=== PATIENT | male | born 1965 | race African-American/Black ===

== ENCOUNTER 2021-04-27 19:37 | Inpatient (IN) | payer OTHER ==
--- OUTSIDE RECORDS SUMMARY | 2021-04-27 19:40 | XMS REPORT | Continuity of Care Document ---
:1965 Author Organization [facility] Address [address] [place] [address] Dr. Rosa [address] [place] [id number] Care Team Providers Name Role Phone Unavailable Unavailable Unavailable Problems This patient has no known problems. Allergies, Adverse Reactions, Alerts This patient has no known allergies or adverse reactions. Medications This patient has no known medications. Procedures This patient has no known procedures. Results This patient has no known results.
--- NOTE | 2021-04-27 20:10 | RAD REPORT ---
EXAM DESCRIPTION: RAD - Chest Single View - 04/27/2021 8:01 pm CLINICAL HISTORY: CHEST PAIN COMPARISON: None TECHNIQUE: AP portable chest image was obtained 04/27/2021 8:01 pm . FINDINGS: Lungs are clear. Heart and vasculature are normal. No measurable pleural effusion and no p neumothorax. No acute bony abnormality seen. No acute aortic findings suspected. IMPRESSION: No acute cardiopulmonary process.
[2021-04-27 20:31] LABS: Protime INR 1.07
[2021-04-27] MEDS ORDERED: MORPHINE 4 MG/ML SYR ONE (20:40)
[2021-04-27] MEDS ORDERED: ONDANSETRON 4 MG/2 ML VIAL ONE (20:40)
[2021-04-27 20:41] LABS: Absolute Lymphocytes (CBC) 1.3 K/uL (0.7-4.9); Basophils % 0.6 % (0-1.3); Lymphocytes % 14.2 % (15.3-44.8); MPV 9.2 fL (7.6-11.3); RBC Red Blood Cell Count 5.04 M/uL (4.33-5.43)
[2021-04-27 20:57] LABS: Albumin 3.1 g/dL (3.4-5.0); Bilirubin Direct 0.1 mg/dL (0-0.2); Bilirubin Total 0.3 mg/dL (0.2-1.0); Magnesium 1.8 mg/dL (1.8-2.4); Potassium 3.7 mmol/L (3.5-5.1); Protein, Total 7.6 g/dL (6.4-8.2)
[2021-04-27 20:59] LABS: Troponin (Emerg Dept Use Only) 0.78 ng/mL (0.0-0.045)
[2021-04-27 21:24] LABS: Platelet Estimate ADEQ
[2021-04-27 21:25] LABS: Blood Morphology Comment NOT SEEN (NOT SEEN)
[2021-04-27] MEDS ORDERED: ACETAMINOPHEN 500 MG TAB ONE (23:21)
[2021-04-28 00:59] LABS: Absolute Lymphocytes (CBC) 1.3 K/uL (0.7-4.9); Basophils % 0.7 % (0-1.3); Hematocrit 41.6 % (39.6-49.0); Lymphocytes % 18.1 % (15.3-44.8); MPV 9.5 fL (7.6-11.3); RBC Red Blood Cell Count 4.66 M/uL (4.33-5.43)
--- NOTE | 2021-04-28 01:22 | ER ---
Nurse's Notes [facility] Name: Kyle Gomez Age: 55 yrs Sex: Male : 1965 Arrival Date: 04/27/2021 Time: 19:44 Bed 19 Private MD: Diagnosis: Subsequent non-ST elevation (NSTEMI) myocardial infarction Presentation: 04/27 19:46 Chief complaint: EMS states: called out for nose bleed that started today, also reports em chest pain that started 2 days ago, has hx of cocaine and alcohol abuse, also reports bloody BM last night, last used cocaine this morning, was given 1 nitro 0.4 mg and 800 mL NS. Coronavirus screen: Vaccine status: Patient reports receiving the 1st dose of the Covid vaccine. Ebola Screen: Patient negative for fever greater than or equal to 101.5 degrees Fahrenheit, and additional compatible Ebola Virus Disease symptoms Patient denies exposure to infectious person. Patient denies travel to an Ebola-affected area in the 21 days before illness onset. No symptoms or risks identified at this time. Initial Sepsis Screen: Does the patient meet any 2 criteria? No. Patient's initial sepsis screen is negative. Does the patient have a suspected source of infection? No. Patient's initial sepsis screen is negative. Risk Assessment: Do you want to hurt yourself or someone else? Patient reports no desire to harm self or others. Onset of symptoms was April 27, 2021. 19:46 Method Of Arrival: EMS: [facility] em 19:46 Acuity: NISHANT 3 em Historical: - Allergies: 19:48 No Known Allergies; em - PMHx: 19:48 Hypertensive disorder; coronary disease; em - PSHx: 19:48 cardiac stents; em - Immunization history:: Client reports receiving the Josesito \T\ Josesito single-dose vaccine. - Social history:: Smoking status: Patient reports the use of cigarette tobacco products, smokes one pack cigarettes per day. Screenin:46 Abuse screen: Denies threats or abuse. Nutritional screening: No deficits noted. em Tuberculosis screening: No symptoms or risk factors identified. Fall Risk None identified. Assessment: 20:53 General: Appears uncomfortable, Behavior is calm, cooperative, restless, Smells of em Reports feeling ill for 2-3 days, Denies . Pain: Complains of pain in chest Pain does not radiate. Pain currently is 10 out of 10 on a pain scale. Quality of pain is described as sharp, Pain began 2-3 days ago. Is chronic, Alleviated by nothing. Aggravated by increased activity, Noted to be restless, Also complains of shortness of breath, Current management is with Morphine, Goal of pain control is to sleep comfortably. Neuro: No deficits noted. Cardiovascular: Chest pain. Respiratory: No deficits noted. GI: No deficits noted. : No deficits noted. EENT: No deficits noted. Derm: Reports pain Pt states redness, dry skin noted to right ankle. Skin warm to touch with pain x 2-3 days. Musculoskeletal: Reports Pt states right ankle pain x 2-3 days. No trauma or injury noted. MSP's intact. 22:11 Reassessment: Patient appears in no apparent distress at this time. Patient and/or em family updated on plan of care and expected duration. Pain level reassessed. Patient is alert, oriented x 3, equal unlabored respirations, skin warm/dry/pink. rates pain 5/10 Patient states feeling better. 04/28 01:00 Reassessment: Patient appears in no apparent distress at this time. Patient and/or em family updated on plan of care and expected duration. Pain level reassessed. Patient is alert, oriented x 3, equal unlabored respirations, skin warm/dry/pink. Vital Signs: 04/27 19:46 BP 127 / 87; Pulse 111; Resp 18; Temp 101(O); Pulse Ox 95% on R/A; Weight 72.57 kg; em Height 5 ft. 11 in. (180.34 cm); 04/28 00:27 BP 136 / 87; Pulse 88; Resp 18; Temp 99.0; Pulse Ox 98% on R/A; em 05:33 BP 142 / 99; Pulse 78; Resp 18; Pulse Ox 98% on R/A; em 04/27 19:46 Body Mass Index 22.32 (72.57 kg, 180.34 cm) em ED Course: 04/27 19:44 Patient arrived in ED. cf2 19:44 Isai Farris MD is Attending Physician. tw4 19:46 Patient has correct armband on for positive identification. Placed in gown. Side rails em up X2. Adult w/ patient. bus monitor on. Pulse ox on. NIBP on. 19:46 Patient maintains SpO2 saturation greater than 95% on room air. em 19:46 Maintain EMS IV. Dressing intact. Good blood return noted. Site clean \T\ dry. Gauge \T\ em site: 20 L FA. 19:48 Triage completed. em 19:48 Arm band placed on. em 20:01 XRAY Chest (1 view) In Process Unspecified. EDMS 20:06 Sabas Hunt, RN is Primary Nurse. em 22:14 Initiated transfer at [facility] with Alix. Call was connected with Dr. Farris tt3 for consultation. 04/28 01:21 Gerry Rubio is Hospitalizing Provider. tw4 02:52 No provider procedures requiring assistance completed. Patient admitted, IV remains in em place. Administered Medications: 04/27 20:22 Drug: Zofran (Ondansetron) 4 mg Route: IVP; Site: left forearm; em 20:47 Follow up: Response: No adverse reaction em 20:24 Drug: morphine 4 mg Route: IVP; Site: left forearm; em 20:47 Follow up: Response: No adverse reaction; Marked relief of symptoms; Pain is unchanged, em physician notified 22:30 Drug: Tylenol 1000 mg Route: PO; em 04/28 02:47 Follow up: Response: No adverse reaction em 02:20 Drug: Heparin ([place] Drip) 12 units/kg/hr - (HEParin 08185 units, D5W 500 ml) em {Co-Signature: lh3 (Carlie Kruse RN).} Route: IV; Rate: calculated rate; Site: right forearm; 02:23 Not Given (Physician Discretion): Heparin ([place]-Bolus No thrombolytic) - HEParin 60 em units/kg IVP once; Max 5000 units Outcome: 01:21 Decision to Hospitalize by Provider. tw4 02:52 Admitted to ER Hold. Please see [facility] for further documentation. em 02:52 Condition: stable 02:52 Instructed on the need for admit, Demonstrated understanding of instructions. 09:20 Patient left the ED. ll1 Signatures: Dispatcher [employer] EDCO Sabas Hunt, RN RN Isai Farris MD MD tw4 Kiki Varela 2 Jamie Pritchett RN RN ll1 Fly James tt3 Carlie Kruse RN lh3
--- NOTE | 2021-04-28 01:22 | EDPHYS ---
Physician Documentation [facility] Name: Kyle Gomez Age: 55 yrs Sex: Male : 1965 Arrival Date: 04/27/2021 Time: 19:44 Bed 19 Private MD: ED Physician Isai Farris HPI: 04/28 06:28 This 55 yrs old Black Male presents to ER via EMS with complaints of Chest Pain, Nose tw4 Bleed. 06:28 The patient or guardian reports chest pain that is located primarily in the anterior tw4 chest wall. Onset: today. The pain does not radiate. Associated signs and symptoms: The patient has no apparent associated signs or symptoms. Duration: The patient or guardian reports a single episode. Severity of pain: At its worst the pain was moderate. The patient has not experienced similar symptoms in the past. 06:33 Admits to heavy cocaine use over the last 3 days. Patient snorts cocaine. Patient tw4 states he had some epistaxis today. Associated with rectal bleeding. Patient states his epistaxis has resolved. Patient also states that he had rectal bleeding with clots. Patient denies any abdominal pain. Patient had previous history of rectal bleeding for. Historical: - Allergies: 04/27 19:48 No Known Allergies; em - PMHx: 19:48 Hypertensive disorder; coronary disease; em - PSHx: 19:48 cardiac stents; em - Immunization history:: Client reports receiving the Josesito \\T\\ Joses[place] single-dose vaccine. - Social history:: Smoking status: Patient reports the use of cigarette tobacco products, smokes one pack cigarettes per day. ROS: 04/28 06:28 Constitutional: Negative for fever, chills, and weight loss, Eyes: Negative for injury, tw4 pain, redness, and discharge. Respiratory: Negative for shortness of breath, cough, wheezing, and pleuritic chest pain, Abdomen/GI: Negative for abdominal pain, nausea, vomiting, diarrhea, and constipation, Back: Negative for injury and pain, MS/Extremity: Negative for injury and deformity, Skin: Negative for injury, rash, and discoloration, Neuro: Negative for headache, weakness, numbness, tingling, and seizure. Cardiovascular: Positive for chest pain, Negative for edema, orthopnea, palpitations, paroxysmal nocturnal dyspnea. Exam: 06:28 Constitutional: This is a well developed, well nourished patient who is awake, alert, tw4 and in no acute distress. Head/Face: Normocephalic, atraumatic. Chest/axilla: Normal chest wall appearance and motion. Nontender with no deformity. No lesions are appreciated. Cardiovascular: Regular rate and rhythm with a normal S1 and S2. No gallops, murmurs, or rubs. Normal PMI, no JVD. No pulse deficits. Respiratory: Lungs have equal breath sounds bilaterally, clear to auscultation and percussion. No rales, rhonchi or wheezes noted. No increased work of breathing, no retractions or nasal flaring. Abdomen/GI: Soft, non-tender, with normal bowel sounds. No distension or tympany. No guarding or rebound. No evidence of tenderness throughout. Back: No spinal tenderness. No costovertebral tenderness. Full range of motion. Skin: Warm, dry with normal turgor. Normal color with no rashes, no lesions, and no evidence of cellulitis. MS/ Extremity: Pulses equal, no cyanosis. Neurovascular intact. Full, normal range of motion. Neuro: Awake and alert, GCS 15, oriented to person, place, time, and situation. Cranial nerves II-XII grossly intact. Motor strength 5/5 in all extremities. Sensory grossly intact. Cerebellar exam normal. Normal gait. 06:33 Abdomen/GI: Rectal exam: Stool: normal. tw4 Vital Signs: 04/27 19:46 BP 127 / 87; Pulse 111; Resp 18; Temp 101(O); Pulse Ox 95% on R/A; Weight 72.57 kg; em Height 5 ft. 11 in. (180.34 cm); 04/28 00:27 BP 136 / 87; Pulse 88; Resp 18; Temp 99.0; Pulse Ox 98% on R/A; em 05:33 BP 142 / 99; Pulse 78; Resp 18; Pulse Ox 98% on R/A; em 04/27 19:46 Body Mass Index 22.32 (72.57 kg, 180.34 cm) em MDM: 04/27 19:44 Patient medically screened. tw4 04/28 06:32 Differential diagnosis: pulmonary embolus, thoracic aortic disection. Data reviewed: tw4 vital signs, nurses notes. Data interpreted: Pulse oximetry:. Counseling: I had a detailed discussion with the patient and/or guardian regarding: the historical points, exam findings, and any diagnostic results supporting the discharge/admit diagnosis. Physician consultation: Gerry Rubio regarding admission, to the telemetry unit. patient's condition, and will see patient in inpatient room. 04/27 19:45 Order name: Basic Metabolic Panel; Complete Time: 22:02 04/27 22:02 Interpretation: Normal except: GFR 75. 04/27 19:45 Order name: CBC with Diff; Complete Time: 22:02 tw 04/27 22:03 Interpretation: Normal except: LYM% 14.2; LIO% 74.2. 04/27 19:45 Order name: LFT's; Complete Time: 22:02 [facility] 04/27 22:03 Interpretation: Normal except: AST 91; ALB 3.1; GLOB 4.5; A/G 0.7. 04/27 19:45 Order name: Magnesium; Complete Time: 22:02 [facility] 04/27 22:10 Interpretation: Within normal limits: MG 1.8. 04/27 19:45 Order name: NT PRO-BNP; Complete Time: 22:02 [facility] 04/27 22:03 Interpretation: Normal except: NT PRO-BNP 1585. 04/27 19:45 Order name: PT-INR; Complete Time: 22:02 [facility] 04/27 19:45 Order name: Troponin (emerg Dept Use Only); Complete Time: 22:02 [facility] 04/27 22:03 Interpretation: Normal except: TROPED 0.78. 04/27 19:55 Order name: COVID-19 : Document "Date of Symptom Onset" if Symptomatic. 04/27 20:06 Order name: Type And Screen em 04/27 21:24 Order name: Manual Differential; Complete Time: 22:02 EDMS 04/27 22:03 Interpretation: Normal except: BANDS [F] 3. tw04/27 22:18 Order name: SARS-COV-2 RT PCR; Complete Time: 22:36 EDMS 04/27 22:46 Order name: CBC with Diff bb 04/27 19:45 Order name: XRAY Chest (1 view); Complete Time: 22:02 [facility] 04/27 22:47 Order name: CBC with Automated Diff; Complete Time: 01:14 EDID 04/27 23:17 Order name: ABO/RH no charge EDID 04/28 01:58 Order name: Troponin I ej 04/28 02:50 Order name: [place] em 04/28 03:04 Order name: Occult Blood--Ancillary EDID 04/28 03:36 Order name: Urine Drug Screen; Complete Time: 03:49 EDID 04/28 06:46 Order name: Ptt, Activated em 04/28 06:46 Order name: Protime (+inr) em 04/28 07:30 Order name: Troponin I EDID 04/28 07:30 Order name: T4 Free EDID 04/28 07:30 Order name: Thyroid Stimulating Hormone EDID 04/28 07:32 Order name: Protime (+INR) EDID 04/28 07:32 Order name: PTT, Activated Partial Thromb EDID 04/27 19:45 Order name: EKG; Complete Time: 19:45 tw4 04/27 19:45 Order name: Cardiac monitoring; Complete Time: 20:17 tw4 04/27 19:45 Order name: EKG - Nurse/Tech; Complete Time: 20:17 tw4 04/27 19:45 Order name: IV Saline Lock; Complete Time: 20:17 tw4 04/27 19:45 Order name: Labs collected and sent; Complete Time: 20:17 tw4 04/27 19:45 Order name: O2 Per Protocol; Complete Time: 20:17 tw4 04/27 19:45 Order name: O2 Sat Monitoring; Complete Time: 20:17 tw4 04/28 02:20 Order name: CONS Physician Consult EDID EC:28 Rate is 107 beats/min. Rhythm is regular. QRS [place] is Normal. [place] interval is normal. tw4 QRS interval is normal. QT interval is normal. No Q waves. T waves are Inverted in lead V1. No ST changes noted. Clinical impression: Abnormal EKG without significant change. Interpreted by me. Reviewed by me. Administered Medications: 04/27 20:22 Drug: Zofran (Ondansetron) 4 mg Route: IVP; Site: left forearm; em 20:47 Follow up: Response: No adverse reaction em 20:24 Drug: morphine 4 mg Route: IVP; Site: left forearm; em 20:47 Follow up: Response: No adverse reaction; Marked relief of symptoms; Pain is unchanged, em physician notified 22:30 Drug: Tylenol 1000 mg Route: PO; em 04/28 02:47 Follow up: Response: No adverse reaction em 02:20 Drug: Heparin ([place] Drip) 12 units/kg/hr - (HEParin 29280 units, D5W 500 ml) em {Co-Signature: lh3 (Carlie Kruse RN).} Route: IV; Rate: calculated rate; Site: right forearm; 02:23 Not Given (Physician Discretion): Heparin ([place]-Bolus No thrombolytic) - HEParin 60 em units/kg IVP once; Max 5000 units Disposition Summary: 04/28/21 01:21 Hospitalization Ordered Hospitalization Status: Inpatient Admission tw4 Provider: Gerry Rubio tw4 Condition: Stable tw4 Problem: new tw4 Symptoms: have improved tw4 Bed/Room Type: Standard tw4 Location: Telemetry/MedSurg (Inpatient)(04/28/21 08:37) eb Room Assignment: [facility](04/28/21 08:37) Diagnosis - Subsequent non-ST elevation (NSTEMI) myocardial infarction tw4 Forms: - Medication Reconciliation Form tw4 - SBAR form tw4 Signatures: Dispatcher [employer] EDMS Jelly Montilla RN RN Sabas Hunt RN RN Isai Farris MD MD 4 Ema Christopher Carlie Kruse RN lh3 Corrections: (The following items were deleted from the chart) 04/27 21:15 19:56 CORONAVIRUS ordered. EDMS EDMS 23:05 22:29 CBC without Diff+H.LAB.BRZ ordered. EDMS EDMS 04/28 00:42 00:25 Chest Single View+RAD.RAD.BRZ ordered. EDMS EDMS 02:41 01:21 Telemetry/MedSurg (Inpatient) tw4 mw 02:41 01:21 tw4 mw 08:37 02:41 [facility] ER HOLD mw eb 08:37 02:41 ERHOLD- mw eb
[2021-04-28] MEDS ORDERED: HEPARIN/D5W 25,000 UNIT/500 ML BAG IV ONE (02:36)
--- NOTE | 2021-04-28 02:51 | P.HP ---
Certification for Inpatient Patient admitted to: Inpatient With expected LOS: >2 Midnights Patient will require the following post-hospital care: None Practitioner: I am a practitioner with admitting privileges, knowledge of patient current condition, hospital course, and medical plan of care. Services: Services provided to patient in accordance with Admission requirements found in Title 42 Section 412.3 of the Code of Federal Regulations <Edy Bellamy - Last Filed: 04/28/21 02:45> Patient History Date of Service: 04/28/21 Reason for admission: NSTEMI History of Present Illness: Mr. Gomez is a 55 yo M with CAD, HTN, alcohol and cocaine abuse who presents with 10/10 intermittent left sided chest pressure beginning last night while he was laying down. He does not take any medications. Trop 0.78. BNP 1585. He reports using cocaine this morning. Today while he was mowing the lawn, he had an episode of epistaxis so he called EMS. Epistaxis now resolved. He reports episode of rectal bleeding however FOBT negative and H/H wnl. Attempted transfer for GI services, but transfer center denied due to negative FOBT and normal hemoglobin. No bleeding since arrival to the hospital. - Past Medical/Surgical History Diabetic: No -: CAD -: HTN -: cocaine and alcohol abuse -: hip replacement - Social History Smoking Status: Current every day smoker Alcohol use: Yes CD- Drugs: Yes Caffeine use: No Place of Residence: Home <Edy Bellamy - Last Filed: 04/28/21 02:45> Date of Service: 04/28/21 - Social History Smoking Status: Current every day smoker <Gurmeet Cortez - Last Filed: 04/30/21 00:16> Allergies No Known Allergies Allergy (Unverified 04/28/21 03:02) Home Medications: NK [No Home Meds] 04/28/21 Review of Systems 10-point ROS is otherwise unremarkable ENT: Other (epistaxis ) Cardiovascular: Chest Pain <Edy Bellamy - Last Filed: 04/28/21 02:45> Physical Examination - Physical Exam General: Alert, In no apparent distress HEENT: Atraumatic, PERRLA, Mucous membr. moist/pink, EOMI, Sclerae nonicteric Neck: Supple, 2+ carotid pulse no bruit, No LAD, Without JVD or thyroid abnormality Respiratory: Clear to auscultation bilaterally, Normal air movement Cardiovascular: Regular rate/rhythm, Normal S1 S2 Gastrointestinal: Normal bowel sounds, No tenderness Musculoskeletal: No tenderness Integumentary: No rashes Neurological: Normal gait, Normal speech, Normal strength at 5/5 x4 extr, Normal tone, Normal affect Lymphatics: No axilla or inguinal lymphadenopathy - Studies Laboratory Data (last 24 hrs) 04/27/21 : WBC Cancelled, Hgb Cancelled, Hct Cancelled, Plt Count Cancelled 04/27/21 23:40: WBC 6.90 D, Hgb 13.8, Hct 41.6, Plt Count 286 04/27/21 20:05: PT 12.3, INR 1.07 04/27/21 20:05: WBC 8.90, Hgb 14.9, Hct 45.0, Plt Count 263 04/27/21 20:05: Sodium 139, Potassium 3.7, BUN 12, Creatinine 1.21, Glucose 94, Magnesium 1.8, Total Bilirubin 0.3, AST 91 H, ALT 40, Alkaline Phosphatase 88 <Edy Bellamy - Last Filed: 04/28/21 02:45> Assessment and Plan - Problems (Diagnosis) (1) NSTEMI (non-ST elevated myocardial infarction) Current Visit: Yes Status: Acute (2) Cocaine abuse Current Visit: Yes Status: Chronic (3) Alcohol abuse Current Visit: Yes Status: Chronic (4) HTN (hypertension) Current Visit: Yes Status: Chronic Qualifiers: Hypertension type: primary hypertension Qualified Code(s): I10 - Essential (primary) hypertension (5) CAD (coronary artery disease) Current Visit: Yes Status: Chronic Qualifiers: Coronary Disease-Associated Artery/Lesion type: [place] artery [place] vs. transplanted heart: [place] heart Associated angina: with unstable angina Q ualified Code(s): I25.110 - Atherosclerotic heart disease of [place] coronary artery with unstable angina pectoris - Plan on telemetry, trend troponins, repeat EKG cardiology consulted daily ASA and statin, PRN NTG, morphine, benzos continue heparin drip, monitor closely for bleeding UDS pending [facility] protocol lipid and thyroid panel pending Discharge Plan: Home Plan to discharge in: 48 Hours - Advance Directives Does patient have a Living Will: No Does patient have a Durable POA for Healthcare: No - Code Status/Comfort Care Code Status Assessed: Yes (full code ) Critical Care: No Time Spent Managing Pts Care (In Minutes): 70 <Edy Bellamy - Last Filed: 04/28/21 02:45> - Problems (Diagnosis) (1) NSTEMI (non-ST elevated myocardial infarction) Current Visit: Yes Status: Acute (2) Alcohol abuse Current Visit: Yes Status: Chronic (3) CAD (coronary artery disease) Current Visit: Yes Status: Chronic Qualifiers: Coronary Disease-Associated Artery/Lesion type: [place] artery [place] vs. transplanted heart: [place] heart Associated angina: with unstable angina Qualified Code(s): I25.110 - Atherosclerotic heart disease of [place] coronary artery with unstable angina pectoris (4) Cocaine abuse Current Visit: Yes Status: Chronic (5) HTN (hypertension) Current Visit: Yes Status: Chronic Qualifiers: Hypertension type: primary hypertension Qualified Code(s): I10 - Essential (primary) hypertension <Gurmeet Cortez - Last Filed: 04/30/21 00:16> Date of Service: 04/28/21 Subjective Agree with plan of care as mentioned above' plan to start tube feeds once it is placed Review of Systems 10-point ROS is otherwise unremarkable Physical Examination - Vital Signs Reviewed - Physical Exam General: Alert, In no apparent distress, Oriented x3 Respiratory: Clear to auscultation bilaterally, Normal air movement Cardiovascular: Regular rate/rhythm, Normal S1 S2, No murmurs Gastrointestinal: Normal bowel sounds, Soft and benign, Non-distended, No tenderness Musculoskeletal: No clubbing, No swelling, No tenderness Neurological: Normal speech, Normal tone, Sensation intact, Cranial nerves 3-12 intact, Normal reflexes 2+, Normal affect Assessment & Plan - Problems (Diagnosis) (1) NSTEMI (non-ST elevated myocardial infarction) Current Visit: Yes Status: Acute (2) Alcohol abuse Current Visit: Yes Status: Chronic (3) CAD (coronary artery disease) Current Visit: Yes Status: Chronic Qualifiers: Coronary Disease-Associated Artery/Lesion type: [place] artery [place] vs. transplanted heart: [place] heart Associated angina: with unstable angina Qualified Code(s): I25.110 - Atherosclerotic heart disease of [place] coronary artery with unstable angina pectoris (4) Cocaine abuse Current Visit: Yes Status: Chronic (5) HTN (hypertension) Current Visit: Yes Status: Chronic Qualifiers: Hypertension type: primary hypertension Qualified Code(s): I10 - Essential (primary) hypertension - Plan Continue with plan of care as mentioned below: 1. Serial troponins and EKG indicative of inferior wall infarct 2. Appreciate Cardiology consultation 3. Echocardiogram and stress test if cardiology is agreeable 4. Anti-platelet therapy, anti coagulation, beta-mars, statin, and O2 as needed 5. IV morphine for pain 6. Nitro p.r.n. Discharge Plan: Home - Advance Directives Does patient have a Living Will: No Does patient have a Durable POA for Healthcare: No <Gurmeet Cortez - Last Filed: 04/30/21 00:16>
[2021-04-28] MEDS ORDERED: ACETAMINOPHEN 500 MG TAB PO PRN (03:03)
[2021-04-28] MEDS ORDERED: LORAZEPAM 0.5 MG TABLET PO PRN (03:03)
[2021-04-28] MEDS ORDERED: NITROGLYCERIN 0.4 MG/TAB SL PRN (03:03)
[2021-04-28 03:36] LABS: Barbiturates NEGATIVE (NEGATIVE); Benzodiazepines NEGATIVE (NEGATIVE); Cocaine POSITIVE (NEGATIVE); METHAMPHETAM NEGATIVE (NEGATIVE); Methadone NEGATIVE (NEGATIVE); Opiates POSITIVE (NEGATIVE); Phencyclidine NEGATIVE (NEGATIVE); THC Cannibis POSITIVE (NEGATIVE)
[2021-04-28] MEDS: MORPHINE 2 MG/ML SYR IV PRN ×4 (03:37→22:30)
[2021-04-28] MEDS ORDERED: MORPHINE 2 MG/ML SYR ONE ×2 (03:38→09:32)
[2021-04-28 04:12] VITALS: BMI 22.3
[2021-04-28 07:29] LABS: Thyroid Stimulating Hormone 1.76 uIU/mL (0.360-3.740); Troponin I 0.7 ng/mL (0.0-0.045)
[2021-04-28] MEDS ORDERED: ASPIRIN EC 81 MG TAB PO ONE (07:38)
[2021-04-28] MEDS: HEPARIN/D5W 25,000 UNIT/500 ML BAG IV SCH (07:48)
[2021-04-28] MEDS: ASPIRIN EC 81 MG TAB PO SCH (08:39)
[2021-04-28] MEDS: ONDANSETRON 4 MG/2 ML VIAL IV PRN ×2 (09:17→16:29)
[2021-04-28] MEDS ORDERED: ONDANSETRON 4 MG/2 ML VIAL ONE (09:32)
--- NOTE | 2021-04-28 15:02 | CON ---
Date of Consultation: 04/28/2021 Reason For Consultation: Elevated troponin. History Of Present Illness: 55-year-old male with history of coronary artery disease, hypertension, alcohol, cocaine abuse, smoker, presented with chest pain, pressure-like while lying down and the pat neftali reported using cocaine the same day of presenting to the emergency room, had also some nosebleed s by his report, so upon evaluation, he had a troponin of 0.78, which is still stabilized. The patie nt said in the past, there was a trial to do heart catheterization on him, but could not get to the eart arteries because of some bleeding as per his report. Past Medical History: Coronary artery disease, hypertension, cocaine and alcohol dependence and toba accounts officer dependence. Past Surgical History: Hip replacement. Medications: Refer to reconciliation sheet for detailed list. Allergies: NO KNOWN DRUG ALLERGIES. Family History: No premature coronary artery disease or cancer. Social History: Active smoker. Smokes more than a pack per day. Uses cocaine and alcohol. Review of Systems: All systems reviewed and they were negative except as mentioned in the HPI. Physical Examination: Vital Signs: Show temperature is 98.4, pulse 81, breathing 17, blood pressure is 168/103, and satura ting 98%. General: This is a middle-aged male, in no apparent distress. Head and Neck: Pupils are equal and reactive to light. Intact eye movements. No JVD. No cervical lymphadenopathy. Neck is supple. Thyroid is not enlarged. Lungs: Clear to auscultation bilaterally. No rhonchi, rales, or crackles. No accessory muscle use. Heart: Regular rate and rhythm. No extra sounds. Abdomen: Soft, nontender. Bowel sounds positive. No organomegaly. No rigidity or rebound. Extremities: No edema, clubbing, or cyanosis. Intact pulses. Skin: No rashes. Neurologic: Alert, awake, and oriented x3. No acute focal deficits appreciated. Investigations: Troponin 0.78, then 0.71, then 0.70. BNP is 1585. Assessment And Recommendations: Non-ST elevation myocardial infarction. Patient has multiple risk f actors including smoking, cocaine abuse, and alcohol abuse. Explained to him that he needs workup in cluding heart catheterization, however, it is imperative to quit using cocaine and to try to quit smo brian before we will proceed with any further management for this coronary artery disease. Meanwhile, I agree with anticoagulation, aspirin and nitroglycerin and avoid beta blockers due to the recent co luna use. In conclusion, patient will need coronary angiogram. I had a long discussion with him ab out compliance with medications in case we need to do this and the patient will think about it. SR/MODL Voice ID: [id number] Report ID: [id number]
[2021-04-28] MEDS ORDERED: AMLODIPINE 5 MG TAB PO ONE (16:06)
[2021-04-28] MEDS ORDERED: METOPROLOL TARTRATE 5 MG/5 ML INJ IV STA (16:06)
[2021-04-28] MEDS ORDERED: HYDRALAZINE HCL 20 MG/ML VIAL IV ONE (16:06)
[2021-04-28] MEDS: NICOTINE 21 MG/PAT TD SCH (16:29)
[2021-04-28] MEDS: HYDRALAZINE HCL 10 MG TABLET PO SCH (20:31)
[2021-04-28] MEDS: ATORVASTATIN 40 MG TAB PO SCH (20:31)
[2021-04-29 03:07] LABS: Absolute Lymphocytes (CBC) 1.4 K/uL (0.7-4.9); Basophils % 1.2 % (0-1.3); Hematocrit 40.7 % (39.6-49.0); Lymphocytes % 27.3 % (15.3-44.8); MPV 8.8 fL (7.6-11.3); RBC Red Blood Cell Count 4.59 M/uL (4.33-5.43)
[2021-04-29 03:26] LABS: ALT/SGPT 33 U/L (12-78); AST/SGOT 72 U/L (15-37); Albumin 2.7 g/dL (3.4-5.0); Alkaline Phosphatase 72 U/L (45-117); BUN Blood Urea Nitrogen 8 mg/dL (7-18); Bicarbonate 25 mmol/L (21-32); Bilirubin Total 0.4 mg/dL (0.2-1.0); Glucose Level 99 mg/dL (74-106); Magnesium 1.6 mg/dL (1.8-2.4); Phosphorus 3.2 mg/dL (2.5-4.9); Potassium 3.5 mmol/L (3.5-5.1); Sodium Level 133 mmol/L (136-145)
[2021-04-29] MEDS: ASPIRIN EC 81 MG TAB PO SCH (08:22)
[2021-04-29] MEDS: HYDRALAZINE HCL 10 MG TABLET PO SCH ×3 (08:22→20:57)
[2021-04-29] MEDS: AMLODIPINE 10 MG TAB PO SCH (08:22)
[2021-04-29] MEDS: NICOTINE 21 MG/PAT TD SCH (08:23)
[2021-04-29] MEDS: HEPARIN/D5W 25,000 UNIT/500 ML BAG IV SCH (15:36)
--- NOTE | 2021-04-29 15:47 | PN ---
Date of Progress Note: 04/29/2021 Subjective: Seen at bedside. The patient is chest pain-free. No complaints. Review of Systems: No chest pain, shortness of breath, orthopnea, cough, nausea, vomiting, diarrhea. All other systems reviewed are negative. Physical Examination: Vital Signs: Temperature 98.1, pulse 81, breathing at 18, blood pressure is 142/95, saturating 98%. General: Pleasant, middle-aged male, in no distress. Head and Neck: Pupils are equal, reactive to light. Intact eye movements. No JVD. No cervical lym phadenopathy. Neck supple. Thyroid is not enlarged. Lungs: Clear to auscultation bilaterally. No rhonchi, rales, or crackles. No accessory muscle use. Heart: Regular rate and rhythm. No extra sounds. Abdomen: Soft, nontender. Bowel sounds positive. No organomegaly. No masses or hernia. No rigidi ty or rebound. Extremities: No edema, clubbing, cyanosis. Intact pulses. Skin: No rash was noted. Neurologic: Alert, awake, oriented x3. No acute focal deficits appreciated. Investigations: Labs were reviewed. Assessment And Recommendations: Non-ST elevation myocardial infarction. The patient has history of cocaine abuse alcohol and he is an active smoker. I had a lengthy discussion with him about this tis jesus alberto and the compliance issue with medications. As such, we will choose to do a nuclear stress test o n him and an echocardiogram tomorrow and based on that decide need for coronary angiogram accordingly. /TOM Voice ID: [id number] Report ID: [id number]
[2021-04-29] MEDS: ATORVASTATIN 40 MG TAB PO SCH (20:57)
[2021-04-29] MEDS: MORPHINE 2 MG/ML SYR IV PRN (20:58)
--- NOTE | 2021-04-30 00:14 | P.PN ---
Subjective Date of Service: 04/29/21 Subjective: Improving Patient's chest pain has resolved. Troponins are trending down. Scheduled for cardiac catheterization in the morning. Review of Systems 10-point ROS is otherwise unremarkable Physical Examination - Vital Signs Temperature: 97.6 F Blood Pressure: 158/93 Pulse: 100 Respirations: 18 Pulse Ox (%): 97 - Physical Exam General: Alert, In no apparent distress, Oriented x3 HEENT: Atraumatic, PERRLA, EOMI Neck: Supple, JVD not distended Respiratory: Clear to auscultation bilaterally, Normal air movement Cardiovascular: Regular rate/rhythm, Normal S1 S2, No murmurs Gastrointestinal: Normal bowel sounds, Soft and benign, Non-distended, No tenderness Musculoskeletal: No clubbing, No swelling, No tenderness Neurological: Normal speech, Normal tone, Sensation intact, Cranial nerves 3-12 intact, Normal reflexes 2+, Normal affect Lymphatics: No axilla or inguinal lymphadenopathy - Studies Medications List Reviewed: Yes Assessment & Plan - Problems (Diagnosis) (1) NSTEMI (non-ST elevated myocardial infarction) Current Visit: Yes Status: Acute (2) Alcohol abuse Current Visit: Yes Status: Chronic (3) CAD (coronary artery disease) Current Visit: Yes Status: Chronic Qualifiers: Coronary Disease-Associated Artery/Lesion type: [place] artery [place] vs. transplanted heart: [place] heart Associated angina: with unstable angina Qualified Code(s): I25.110 - Atherosclerotic heart disease of [place] coronary artery with unstable angina pectoris (4) Cocaine abuse Current Visit: Yes Status: Chronic (5) HTN (hypertension) Current Visit: Yes Status: Chronic Qualifiers: Hypertension type: primary hypertension Qualified Code(s): I10 - Essential (primary) hypertension - Plan 1. Serial troponins and EKG indicative of inferior wall infarct 2. Appreciate Cardiology consultation 3. Echocardiogram and stress test if cardiology is agreeable 4. Anti-platelet therapy, anti coagulation, beta-mars, statin, and O2 as needed 5. IV morphine for pain 6. Nitro p.r.n. Discharge Plan: Home - Advance Directives Does patient have a Living Will: No Does patient have a Durable POA for Healthcare: No
--- NOTE | 2021-04-30 06:03 | P.PN ---
Subjective Date of Service: 04/30/21 Chief Complaint: NSTEMI Subjective: Improving, Doing well Physical Examination - Vital Signs Temperature: 97.6 F Blood Pressure: 158/93 Pulse: 100 Respirations: 18 Pulse Ox (%): 97 - Studies Medications List Reviewed: Yes Assessment & Plan Discharge Plan: Home Plan to discharge in: 24 Hours Physician Review Additional Text: COVID: Negative CXR: COMPARISON: None TECHNIQUE: AP portable chest image was obtained 04/27/2021 8:01 pm . FINDINGS: Lungs are clear. Heart and vasculature are normal. No measurable pleural effusion and no pneumothorax. No acute bony abnormality seen. No acute aortic findings suspected. IMPRESSION: No acute cardiopulmonary process. Physical exam: General: Alert, In no apparent distress, Oriented x3 HEENT: Atraumatic, PERRLA, EOMI Neck: Supple, JVD not distended Respiratory: Clear to auscultation bilaterally, Normal air movement Cardiovascular: Regular rate/rhythm, Normal S1 S2, No murmurs Gastrointestinal: Normal bowel sounds, Soft and benign, Non-distended, No tenderness Musculoskeletal: No clubbing, No swelling, No tenderness Neurological: Normal speech, Normal tone, Sensation intact, Cranial nerves 3-12 intact, Normal reflexes 2+, Normal affect Lymphatics: No axilla or inguinal lymphadenopathy Impression: NSTEMI with CAD Alcohol abuse Cocaine abuse Hypertension Hyperlipidemia Plan: 1. Patient overall stable. Cardiology plans for heart catheterization today. Await findings. Anticipate possible discharge today if evaluation unremarkable. 2. Continue with blood pressure medication including Norvasc and hydralazine. Will monitor and adjust appropriately. 3. Continue with Lipitor 4. Cocaine and alcohol cessation addressed in detail. Patient plans to quit. 5. Continue with current measures at this time. CODE STATUS: Full code DVT prophylaxis: Heparin Advanced Care Planning: Home at discharge Time Spent Managing Pts Care (In Minutes): 55
[2021-04-30] MEDS ORDERED: NA CHLORIDE 0.9% 500 ML ONE (08:47)
[2021-04-30] MEDS ORDERED: HEPA 1000U/500MLS 1,000 UNIT/500 ML BAG IV ONE (08:57)
[2021-04-30] MEDS ORDERED: FENTANYL CITR 100 MCG/2 ML ONE (08:58)
[2021-04-30] MEDS ORDERED: MIDAZOLAM HCL 2 MG/2 ML INJ ONE ×2 (08:58→09:13)
[2021-04-30] MEDS ORDERED: NA CHLORIDE 0.9% 0 ML ONE (08:59)
[2021-04-30] MEDS ORDERED: ATROPINE SULF 1 MG/10 ML SYR IV ONE (08:59)
[2021-04-30] MEDS ORDERED: NA CHLORIDE 0.9% 100 ML IV ONE (09:01)
[2021-04-30 10:29] VITALS: O2SAT 98
--- NOTE | 2021-04-30 10:49 | OP ---
Date of Procedure: 04/30/2021 Surgeon: Tomy Reeves MD Biodiesel Engine Specialist: Mr. Lanre Leal. Description Of Procedure: Admitted on 04/28/[address] Ibrahim' service for the non-STEMI, brought t o the labour market economist today, on 04/30/2021. He was prepped and draped in routine sterile fashion, underwent left heart catheterization, selective coronary arteriogram. Indication was non-STEMI. A 6-Malaysian s vilma introduced in the right common femoral artery successfully using the Seldinger technique and 10 mL of xylocaine. Angiography there showed a tortuous iliacs, otherwise normal. Angio-Seal was used to close the case. A JL4 catheter was used to cannulate the left main. The left main, LAD, and cir cumflex were all normal except for some calcification on the outside of the blood vessels. No focal stenosis. There were obvious collaterals from the circumflex and the LAD to the RCA. A JR4 catheter was used to cannulate the right main. The RCA had a complete occlusion after the RV branch with col laterals from the left system. 6-Malaysian catheters were used and sheath. No complications. Anesthesia: Total conscious sedation, 45 minutes. Blood Loss: 5 mL. Postoperative Diagnosis: Severe coronary artery disease. Plan: We will proceed with medical therapy. NATA/TOM Voice ID: [id number] Report ID: [id number]
[2021-04-30] MEDS: ASPIRIN EC 81 MG TAB PO SCH (11:05)
[2021-04-30] MEDS: NICOTINE 21 MG/PAT TD SCH (11:05)
[2021-04-30] MEDS: AMLODIPINE 10 MG TAB PO SCH (11:05)
[2021-04-30] MEDS: HYDRALAZINE HCL 10 MG TABLET PO SCH (11:05)
[2021-04-30] MEDS: MORPHINE 2 MG/ML SYR IV PRN (11:11)
--- NOTE | 2021-04-30 11:55 | P.DS ---
Admission Date: 04/28/21 Discharge Date: 04/30/21 Primary Care Provider: none Disposition: ROUTINE DISCHARGE Discharge Condition: GOOD Reason for Admission: NSTEMI Consultations: Cardiology-Dr. Reeves Procedures: COVID: Negative CXR: COMPARISON: None TECHNIQUE: AP portable chest image was obtained 04/27/2021 8:01 pm . FINDINGS: Lungs are clear. Heart and vasculature are normal. No measurable pleural effusion and no pneumothorax. No acute bony abnormality seen. No acute aortic findings suspected. IMPRESSION: No acute cardiopulmonary process. Heart Catheterization: Date of Procedure: 04/30/2021 Surgeon: Tomy Reeves MD Barrel Bander: Mr. Lanre Leal. Description Of Procedure: The left main, LAD, and circumflex were all normal except for some calcification on the outside of the blood vessels. No focal stenosis. There were obvious collaterals from the circumflex and the LAD to the RCA. A JR4 catheter was used to cannulate the right main. The RCA had a complete occlusion after the RV branch with collaterals from the left system. 6-Beninese catheters were used and sheath. No complications. Anesthesia: Total conscious sedation, 45 minutes. Blood Loss: 5 mL. Postoperative Diagnosis: Severe coronary artery disease. Medical problem list: Chest pain secondary to NSTEMI with severe CAD status post heart catheterization showing complete occlusion of RCA with collaterals from the left system Alcohol abuse Cocaine abuse Hypertension Hyperlipidemia Brief History of Present Illness: 55-year-old -Irish male with history of CAD, hypertension, alcohol and cocaine abuse. Patient presented with chest pain. Troponin elevated. Patient admits to recent cocaine use. Patient was admitted for further evaluation and treatment. Hospital Course: Patient presented with chest pain. Patient with history of CAD, hypertension, hyperlipidemia, alcohol and cocaine abuse. Patient admitted to cocaine recently. Patient was evaluated by cardiology. Heart catheterization was recommended. Heart catheterization performed showed complete occlusion of RCA but collaterals from the left system were noted. Cardiology recommended medical therapy. No further intervention was required. At discharge patient will continue with aspirin 81 mg daily, Norvasc 10 mg daily, hydralazine 10 mg 1 pill 3 times a day and Lipitor 40 mg daily. Prescription will be provided by cardiology. Patient will also receive prescription by cardiology for nitroglycerin to be used as needed for chest pain. Cocaine and alcohol cessation addressed in detail. Patient will follow up with cardiology within 1 week to follow-up his hospitalization. Patient should follow-up with his PCP within 1 week to follow-up his hospitalization and continue his care. Patient with alcohol and cocaine abuse. Cessation addressed in detail. Patient plans to quit. This can be followed up as an outpatient. Patient with hypertension. At discharge patient will continue with Norvasc 10 mg daily and hydralazine 10 mg 3 times a day. Recommend to maintain blood pressure less than 130/80. Further adjustment can be done by his PCP. Patient with hyperlipidemia. Patient will continue with Lipitor 40 mg daily. Vital Signs/Physical Exam: Temp Pulse Resp BP Pulse Ox 97.8 F 84 18 149/94 H 98 04/30/21 11:36 04/30/21 11:36 04/30/21 11:36 04/30/21 11:36 04/30/21 11:11 General: Alert, In no apparent distress, Oriented x3, Cooperative HEENT: Atraumatic Neck: Supple Respiratory: Clear to auscultation bilaterally, Normal air movement Cardiovascular: Normal pulses, Regular rate/rhythm Gastrointestinal: Normal bowel sounds, No tenderness, No masses, No rebound, No guarding Musculoskeletal: No erythema, No tenderness, No warmth Integumentary: No tenderness/swelling Neurological: Normal speech, Normal strength at 5/5 x4 extr, Normal tone, Normal affect Laboratory Data at Discharge: WBC 5.20 K/uL (4.3-10.9) D 04/29/21 02:47 Hgb 13.6 g/dL (13.6-17.9) 04/29/21 02:47 Hct 40.7 % (39.6-49.0) 04/29/21 02:47 Plt Count 260 K/uL (152-406) 04/29/21 02:47 PT 11.5 SECONDS (9.5-12.5) 04/28/21 06:50 INR 1.00 04/28/21 06:50 APTT 163.4 SECONDS (24.3-36.9) H* 04/30/21 10:54 Sodium 133 mmol/L (136-145) L 04/29/21 02:47 Potassium 3.5 mmol/L (3.5-5.1) 04/29/21 02:47 BUN 8 mg/dL (7-18) 04/29/21 02:47 Creatinine 0.75 mg/dL (0.55-1.3) 04/29/21 02:47 Glucose 99 mg/dL (74-106) 04/29/21 02:47 Phosphorus 3.2 mg/dL (2.5-4.9) 04/29/21 02:47 Magnesium 1.6 mg/dL (1.8-2.4) L 04/29/21 02:47 Total Bilirubin 0.4 mg/dL (0.2-1.0) 04/29/21 02:47 AST 72 U/L (15-37) H 04/29/21 02:47 ALT 33 U/L (12-78) 04/29/21 02:47 Alkaline Phosphatase 72 U/L (45-117) 04/29/21 02:47 Troponin I 0.70 ng/mL (0.0-0.045) H* 04/28/21 06:50 Home Medications: Amlodipine Besylate [Norvasc] 10 mg PO DAILY #30 tablet 04/30/21 Aspirin [Aspirin EC 81 MG] 81 mg PO DAILY #90 tablet. 04/30/21 Atorvastatin Calcium [Lipitor] 40 mg PO BEDTIME #30 tablet 04/30/21 Hydralazine HCl 10 mg PO TID #90 tablet 04/30/21 New Medications: Aspirin [Aspirin EC 81 MG] 81 mg PO DAILY #90 tablet. Hydralazine HCl 10 mg PO TID #90 tablet Atorvastatin Calcium [Lipitor] 40 mg PO BEDTIME #30 tablet Amlodipine Besylate [Norvasc] 10 mg PO DAILY #30 tablet Physician Discharge Instructions: Patient presented with chest pain. Patient with history of CAD, hypertension, hyperlipidemia, alcohol and cocaine abuse. Patient admitted to cocaine recently. Patient was evaluated by cardiology. Heart catheterization was recommended. Heart catheterization performed showed complete occlusion of RCA but collaterals from the left system were noted. Cardiology recommended medical therapy. No further intervention was required. At discharge patient will continue with aspirin 81 mg daily, Norvasc 10 mg daily, hydralazine 10 mg 1 pill 3 times a day and Lipitor 40 mg daily. Prescription will be provided by cardiology. Patient will also receive prescription by cardiology for nitroglycerin to be used as needed for chest pain. Cocaine and alcohol cessation addressed in detail. Patient will follow up with cardiology within 1 week to follow-up his hospitalization. Patient should follow-up with his PCP within 1 week to follow-up his hospitalization and continue his care. Patient with alcohol and cocaine abuse. Cessation addressed in detail. Patient plans to quit. This can be followed up as an outpatient. Patient with hypertension. At discharge patient will continue with Norvasc 10 mg daily and hydralazine 10 mg 3 times a day. Recommend to maintain blood pressure less than 130/80. Further adjustment can be done by his PCP. Patient with hyperlipidemia. Patient will continue with Lipitor 40 mg daily. Diet: AHA Activity: Ad lizet Followup: NONE,NONE [Primary Care Provider] - Time spent managing pt's care (in minutes): 55
[2021-04-30 12:38] VITALS: BP 141/92; TEMP 97
== END 2021-04-30 13:00 | disposition home or self-care (01) | DRG 282 ==
LOC: ER 19:37 → ERHOLD 04-28 02:28 → 2ND 04-28 09:13
PROVIDERS: ADMIT Hospitalist; ATTEND Hospitalist
PROC: 4A023N7 Measurement of Cardiac Sampling and Pressure, Left Heart, Percutaneous Approach (ICD-10-PCS; principal; 2021-04-30)
PROC: B201YZZ Plain Radiography of Multiple Coronary Arteries using Other Contrast (ICD-10-PCS; 2021-04-30)
PROC: B205YZZ Plain Radiography of Left Heart using Other Contrast (ICD-10-PCS; 2021-04-30)
DX: I21.4 Non-ST elevation (NSTEMI) myocardial infarction (principal); I25.10 Atherosclerotic heart disease of native coronary artery without angina pectoris; I10 Essential (primary) hypertension; F10.10 Alcohol abuse, uncomplicated; F14.10 Cocaine abuse, uncomplicated; E78.5 Hyperlipidemia, unspecified; F17.210 Nicotine dependence, cigarettes, uncomplicated; Z96.649 Presence of unspecified artificial hip joint; Z20.822 Contact with and (suspected) exposure to COVID-19
CPT/HCPCS: 36415; 71045; 80048; 80053; 80076; 80307; 83735; 83880; 84100; 84439; 84443; 84484; 85025; 85610; 85730; 86850; 86900; 86901; 93005; 93454; 94760; 99285; C1760; C1893; J0360; J0583; J1644; J2250; J2270; J2405; J3010; J7040; U0003

== ENCOUNTER 2023-05-09 15:21 | Observation (INO) | payer OTHER ==
--- OUTSIDE RECORDS SUMMARY | 2023-05-09 15:31 | XMS REPORT | Continuity of Care Document ---
:1965 Author Organization [facility] t Address [address] [facility] [place] [address] Care Team Providers Name Role Phone MATIAS RON Primary Care Physician Unavailable MER KAUFMAN Attending Clinician Unavailable MATIAS RON Attending Clinician Unavailable Mer Kaufman MD Attending Clinician [facility]ending [facility]ician Unavailable Matias Ron MD Attending Clinician RODRIGUEZ GARLAND Attending Clinician Unavailable Rodriguez Garland MD Attending Clinician Pob, Adc Lab Main Attending Clinician Unavailable Naina Macario Attending Clinician NAINA LAND Attending Clinician Unavailable Unknown, Attending Attending Clinician Unavailable VIRGINIA TAMAYO Attending Clinician Unavailable Vigrinia Tamayo MD Attending Clinician Doctor Unassigned, [place] Attending Clinician Unavailable RUIZ MARIN Attending Clinician Unavailable RUIZ MARIN Attending Clinician Unavailable Minda, General Cardiology Attending Clinician Unavailable 2, Adc Lab Attending Clinician Unavailable PAVEL LEÓN Attending Clinician Unavailable Pavel León MD Attending Clinician MINDI MEHTA Attending Clinician Unavailable Mindi Rausch S Attending Clinician ERIC LEVINE Attending Clinician Unavailable Eric Fajardo Attending Clinician BOBBY VIVAR Attending Clinician Unavailable Bobby Vivar MD Attending Clinician Nurse, Adc Pob Immunization Attending Clinician Unavailable Javed Fox DO Attending Clinician JAVED FOX Attending Clinician Unavailable BETTY GUY Attending Clinician Unavailable MATIAS RON Admitting Clinician Unavailable VIRGINIA TAMAYO Admitting Clinician Unavailable Virginia Tamayo MD Admitting Clinician RUIZ MARIN Admitting Clinician Unavailable PAVEL LEÓN Admitting Clinician Unavailable BETTY GUY Admitting Clinician Unavailable Payers Payer Name Policy Type Policy Number Effective Date Expiration Date Lawanda danielle [facility] DUAL [id number] 2007 COMP HMO D SNP 00:00:00 MEDICAID OF [place] [id number] 2016 00:00:00 HUMANA GOLD PLS [id number] 2021 HMO 00:00:00 Problems Condition Condition Condition Status Onset Resolution Last Treating Co mments Source Name Details Category Date Date Treatment Clinician Date Non-compli Non-compli Disease Active U nivers ance with ance with 9-20 [place] [facility] [place] Asymptomat Asymptomat Disease Active U nivers ic ic 9-15 it[place] of hypertens[place] ve urgency 00 Me dical Branch Functional Functional Disease Active U nivers diarrhea diarrhea 9-15 ity of 00:: [place] [facility] Hepatic Hepatic Disease Active Univers steatosis steatosis 8-17 ity of 00:00: [place] [facility] Impotence Impotence Disease Active Uni vers of organic of organic 8-17 it y of origin origin 00:00: [place] [facility] Ischemic Ischemic Disease Active Unive rs cardiomyop cardiomyop 8-09 it y of athy athy 00:00: [place] [facility] Cigarette Cigarette Disease Active Uni vers smoker smoker 6- ity of 00:00: [place] [facility] Chronic Chronic Disease Active Univers hepatitis hepatitis 6- it[place] of C without C without [place] hepatic hepatic 00 Medical coma coma Branch Elevated Elevated Disease Active Unive rs liver liver 6- ity of enzymes enzymes 00:00: [place] [facility] Vitamin D Vitamin D Disease Active Uni vers deficiency deficiency 6- it y of 00:00: [place] [facility] Tubular Tubular Disease Active Univers adenoma of adenoma of 01-21 it y of colon colon 00:00: [place] [facility] Anxiety Anxiety Disease Active Univers 6- ity of 00:00: [place] [facility] 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 6 ity of depression depression 00:00: [place] [facility] Right hip Right hip Disease Active Uni vers pain pain 6 ity of 00:00: [place] [facility] Sciatica Sciatica Disease Active Unive rs of right of right 6-06 ity of side side 00:00: [place] 00 Medical Branch Primary Primary Disease Active Univers insomnia insomnia 4-05 ity of 00:00: [place] [facility] Grief Grief Disease Active Univers reaction reaction 4-05 ity of 00:00: [place] [facility] Nicotine Nicotine Disease Active Unive rs dependence dependence 4-05 it y of with with 00:00: [place] current current 00 Medical use use Branch Colon Colon Disease Active Overview: Univer s cancer cancer 3-27 Formattin ity of screening screening 00:00: [place] of this [place] 00 note Medical might be Branch different from the original. Added automatic ally from request for surgery [id number] Alcohol Alcohol Disease Active 2018-08 Univers abuse abuse 2-28 ity of 00:00: [place] 00 Medical Branch Syncope Syncope Disease Active 2018-08 Univers 2-27 ity of 00:00: [place] 00 Medical Branch Dyslipidem Dyslipidem Disease Active 2018-08 U nivers ia ia 2-27 ity of 00:00: [place] [facility] Nontraumat Nontraumat Disease Active 2018-08 Overview : Univers ic ic 1-12 Formattin ity of complete complete 00:00: g of this [place] tear of tear of 00 note Medical right right might be Branch rotator rotator different cuff cuff from the original. Added automatic ally from request for surgery [id number] Essential Essential Disease Active Uni vers hypertensi hypertensi 5-15 it y of on on 00:00: [place] 00 Medical Branch Hyperlipid Hyperlipid Disease Active U nivers emia, emia, 5-15 ity of unspecifie unspecifie 00:00: [place] 00 Medical hyperlipid hyperlipid Br anch emia type emia type Atypical Atypical Disease Active Overview: Un mouna chest pain chest pain -09 Formattin ity of 00:00: g of this [place] 00 note Medical might be Branch different from the original. ICD10 Diagnosis Term Lead Person Utility Coronary Coronary Disease Active Unive rs artery artery 2- ity of disease disease 00:00: [place] 00 Medical Branch Chest pain Chest pain Disease Active 2013-08 U nivers 0-15 ity of 00:00: [place] 00 Medical Branch NSTEMI NSTEMI Disease Active 2013-08 Univers (non-ST (non-ST 0-15 ity of elevated elevated 00:00: [place] myocardial myocardial 00 Me dical infarction infarction Br anch ) ) Allergies, Adverse Reactions, Alerts Allergy Allergy Status Severity Reaction(s) Onset Inactive Treating Comm ents Source Name Type Date Date Clinician NO KNOWN Drug Active Univers ALLERGIE Class ity of S [facility] Social History Social Habit Start Date Stop Date Quantity Comments Source Gender identity Universit y of [facility] Sexual orientation Univer sity of [facility] History of tobacco Cigar Smoker Univ ersity of use [facility] Alcohol intake 2023-05-07 2023-05-07 Current drinker Unive rsity of 00:00:00 00:00:00 of alcohol [facility] [place] [facility] (finding) Branch History of Social 2023-05-02 2023-05-02 Univers ity of function 00:00:00 00:00:00 [facility] Exposure to 2022-12-27 2023-01-06 Not sure University of SARS-CoV-2 (event) 00:00:00 10:57:00 [facility] Cigarettes smoked 2022-12-202022-12-20 Univers ity of current (pack per 00:00:00 00:00:00 ) - Reported Branch Cigarette 2022-12-20 2022-12-20 University of pack-years 00:00:00 00:00:00 [facility] Tobacco use and 2022-12-20 2022-12-20 Former smokeless Uni versity of exposure 00:00:00 00:00:00 tobacco user [facility] Tobacco Comment 2022-10-28 2022-10-28 is trying to cut Uni versity of 00:00:00 00:00:00 back is no [facility] [place] [facility] smoking < a pack Branch a day Sex [birth year] Universit y of 00:00:00 00:00:00 [facility] Smoking Status Start Date Stop Date Source Occasional tobacco smoker 2022-12-20 00:00:00 Un iversity of [facility] Smokes tobacco daily 2022-10-28 00:00:00 Univers ity of [facility] Medications Ordered Filled Start Stop Current Ordering Indication Dosage Frequency Signature Comments Components Source Medication Medication Date Date Medication? Clinician (SIG) Name Name cloNIDine 2022- No [id number] .2mg Un mouna (CATAPRES) 05-02 ity of tablet 0.2 16:15: 15:47 [place] mg 00 :00 [facility] cloNIDine 2022- No [id number] .2mg 0.2 mg, Univers (CATAPRES) 05-02 Oral, ity of tablet 0.2 16:15: 15:47 ONCE, 1 [place] mg 00 :00 dose, On [facility] Fri [place] 05/02/23 at 1115, Routine cloNIDine 2022- No [id number] .2mg Un mouna (CATAPRES) 05-02 ity of tablet 0.2 16:15: 15:47 [place] mg 00 :00 [facility] cloNIDine 2022- No [id number] .2mg 0.2 mg, Univers (CATAPRES) 05-02 Oral, ity of tablet 0.2 16:15: 15:47 ONCE, 1 [place] mg 00 :00 dose, On [facility] 05/02/23 at 1115, Routine lactobacill 2022-0 Yes [id number] 1{capsu Take 1 Univers us 9-15 le} capsule by ity of combination 00:00: mouth in [place] no.4 00 the Medical (PROBIOTIC) morning. Bran ch 3 billion cell Cap loperamide 2022-0 Yes [id number] 2mg Take 1 U nivers 2 mg 9-15 capsule by ity of capsule 00:00: mouth [place] 00 every 4 Medical (four) Branch hours as needed for Diarrhea. amLODIPine 2022-0 Yes [id number] 5mg Take 1 Univers 5 mg tablet 9-15 tablet by ity of 00:00: mouth in [place] 00 the Medical morning. Branch Miscellaneo 2022-0 Yes [id number] I10 - Univers Medical 05-02 Dispense ity o f Supply Kit 00:00: blood [place] 00 pressure Medical cuff (any Branch brand), take BP at home BID lactobacill 2022-0 Yes [id number] 1{capsu Take 1 Univers us 9-15 le} capsule by ity of combination 00:00: mouth in [place] no.4 00 the Medical (PROBIOTIC) morning. Bran ch 3 billion cell Cap loperamide 2022-0 Yes [id number] 2mg Take 1 U nivers 2 mg 9-15 capsule by ity of capsule 00:00: mouth [place] 00 every 4 Medical (four) Branch hours as needed for Diarrhea. amLODIPine 2022-0 Yes [id number] 5mg Take 1 Univers 5 mg tablet 9-15 tablet by ity of 00:00: mouth in [place] 00 the Medical morning. Branch Miscellaneo 2022-0 Yes [id number] I10 - Univers Medical 05-02 Dispense ity o f Supply Kit 00:00: blood [place] 00 pressure Medical cuff (any Branch brand), take BP at home BID lactobacill 3-0 Yes [id number] 1{capsu Take 1 Univers us 9-15 le} capsule by ity of combination 00:00: mouth in [place] no.4 00 the Medical (PROBIOTIC) morning. Bran ch 3 billion cell Cap loperamide 3-0 Yes [id number] 2mg Take 1 U nivers 2 mg 9-15 capsule by ity of capsule 00:00: mouth [place] 00 every 4 Medical (four) Branch hours as needed for Diarrhea. amLODIPine 2022-0 Yes [id number] 5mg Take 1 Univers 5 mg tablet 9-15 tablet by ity of 00:00: mouth in [place] 00 the Medical morning. Branch Miscellaneo 2022-0 Yes [id number] I10 - Univers Medical 15 Dispense ity o f Supply Kit 00:00: blood [place] 00 pressure Medical cuff (any Branch brand), take BP at home BID lactobacill 3-0 Yes [id number] 1{capsu Take 1 Univers us 9-15 le} capsule by ity of combination 00:00: mouth in [place] no.4 00 the Medical (PROBIOTIC) morning. Bran ch 3 billion cell Cap loperamide 2022-0 Yes [id number] 2mg Take 1 U nivers 2 mg 9-15 capsule by ity of capsule 00:00: mouth [place] 00 every 4 Medical (four) Branch hours as needed for Diarrhea. amLODIPine 2022-0 Yes [id number] 5mg Take 1 Univers 5 mg tablet 9-15 tablet by ity of 00:00: mouth in [place] 00 the Medical morning. Branch Miscellaneo 2022-0 Yes [id number] I10 - Univers Medical 15 Dispense ity o f Supply Kit 00:00: blood [place] 00 pressure Medical cuff (any Branch brand), take BP at home BID lactobacill 2022-0 Yes [id number] 1{capsu Take 1 Univers us 9-15 le} capsule by ity of combination 00:00: mouth in [place] no.4 00 the Medical (PROBIOTIC) morning. Bran ch 3 billion cell Cap loperamide 2022-0 Yes [id number] 2mg Take 1 U nivers 2 mg 9-15 capsule by ity of capsule 00:00: mouth [place] 00 every 4 Medical (four) Branch hours as needed for Diarrhea. amLODIPine 2022-0 Yes [id number] 5mg Take 1 Univers 5 mg tablet 9-15 tablet by ity of 00:00: mouth in [place] 00 the Medical morning. Branch Miscellaneo 2022-0 Yes [id number] I10 - Univers Medical 15 Dispense ity o f Supply Kit 00:00: blood [place] 00 pressure Medical cuff (any Branch brand), take BP at home BID lactobacill 3-0 Yes [id number] 1{capsu Take 1 Univers us 9-15 le} capsule by ity of combination 00:00: mouth in [place] no.4 00 the Medical (PROBIOTIC) morning. Bran ch 3 billion cell Cap loperamide 2022-0 Yes [id number] 2mg Take 1 U nivers 2 mg 9-15 capsule by ity of capsule 00:00: mouth [place] [address] every 4 Medical (four) Branch hours as needed for Diarrhea. amLODIPine 2022-0 Yes [id number] 5mg Take 1 Univers 5 mg tablet 9-15 tablet by ity of 00:00: mouth in [place] [address] the Medical morning. Branch Miscellaneo 2022-0 Yes [id number] I10 - Univers Medical 9-15 Dispense ity o f Supply Kit 00:00: blood [place] [address] pressure Medical cuff (any Branch brand), take BP at home BID lisinopriL 2022-0 Yes [id number] 20mg Take 1 U nivers 20 mg 9-05 tablet by ity of tablet 00:00: mouth in [place] [address] the Medical morning Branch and 1 tablet in the evening. lisinopriL 2022-0 Yes [id number] 20mg Take 1 U nivers 20 mg 9-05 tablet by ity of tablet 00:00: mouth in [place] [address] the Medical morning Branch and 1 tablet in the evening. lisinopriL 3-0 Yes [id number] 20mg Take 1 U nivers 20 mg 9-05 tablet by ity of tablet 00:00: mouth in [place] [address] the Medical morning Branch and 1 tablet in the evening. lisinopriL 3-0 Yes [id number] 20mg Take 1 U nivers 20 mg 9-05 tablet by ity of tablet 00:00: mouth in [place] [address] the Medical morning Branch and 1 tablet in the evening. lisinopriL 2023-0 Yes [id number] 20mg Take 1 U nivers 20 mg 9-05 tablet by ity of tablet 00:00: mouth in [place] [address] the Medical morning Branch and 1 tablet in the evening. lisinopriL 2023-0 Yes [id number] 20mg Take 1 U nivers 20 mg 9-05 tablet by ity of tablet 00:00: mouth in [place] [address] the [facility] morning Branch and 1 tablet in the evening. lisinopriL 2023-0 Yes [id number] 20mg Take 1 U nivers 20 mg 9-05 tablet by ity of tablet 00:00: mouth in [place] 00 the Medical morning Branch and 1 tablet in the evening. lisinopriL 3-0 Yes [id number] 20mg Take 1 U nivers 20 mg 9-05 tablet by ity of tablet 00:00: mouth in [place] 00 the Medical morning Branch and 1 tablet in the evening. lisinopriL 2023-0 Yes [id number] 20mg Take 1 U nivers 20 mg 9-05 tablet by ity of tablet 00:00: mouth in [place] 00 the Medical morning Branch and 1 tablet in the evening. lisinopriL 2023-0 Yes [id number] 20mg Take 1 U nivers 20 mg 9-05 tablet by ity of tablet 00:00: mouth in [place] 00 the Medical morning Branch and 1 tablet in the evening. sofosbuvir- 2022-0 Yes [id number] 1{tbl} Take 1 Univers velpatasvir 8-17 tablet by ity of 400-100 mg 00:00: mouth in [place] 00 the Medical morning. Branch Food 2022- Yes [id number] 1{can} Take 1 Can Univers Supplement, 8-17 by mouth 3 it y of Lactose-[place] 00:00: (three) [place] e (ENSURE 00 times Medical HIGH daily with Branch PROTEIN) meals and liquid at bedtime. sofosbuvir- 2022-0 Yes [id number] 1{tbl} Take 1 Univers velpatasvir 8-17 tablet by ity of 400-100 mg 00:00: mouth in [place] 00 the Medical morning. Branch Food 2022- Yes [id number] 1{can} Take 1 Can Univers Supplement, 8-17 by mouth 3 it y of Lactose-[place] 00:00: (three) [place] e (ENSURE 00 times Medical HIGH daily with Branch PROTEIN) meals and liquid at bedtime. sofosbuvir- 2022-0 Yes [id number] 1{tbl} Take 1 Univers velpatasvir 8-17 tablet by ity of 400-100 mg 00:00: mouth in [place] 00 the Medical morning. Branch Food 2022-0 Yes [id number] 1{can} Take 1 Can Univers Supplement, 8-17 by mouth 3 it y of Lactose-[place] 00:00: (three) [place] e (ENSURE 00 times Medical HIGH daily with Branch PROTEIN) meals and liquid at bedtime. sofosbuvir- 2022-0 Yes [id number] 1{tbl} Take 1 Univers velpatasvir 8-17 tablet by ity of 400-100 mg 00:00: mouth in [place] 00 the Medical morning. Branch Food 2022-0 Yes [id number] 1{can} Take 1 Can Univers Supplement, 8-17 by mouth 3 it y of Lactose-[place] 00:00: (three) [place] e (ENSURE 00 times Medical HIGH daily with Branch PROTEIN) meals and liquid at bedtime. sofosbuvir- 2022-0 Yes [id number] 1{tbl} Take 1 Univers velpatasvir 8-17 tablet by ity of 400-100 mg 00:00: mouth in [place] 00 the Medical morning. Branch Food 2022-0 Yes [id number] 1{can} Take 1 Can Univers Supplement, 8-17 by mouth 3 it y of Lactose-[place] 00:00: (three) [place] e (ENSURE 00 times Medical HIGH daily with Branch PROTEIN) meals and liquid at bedtime. sofosbuvir- 2022-0 Yes [id number] 1{tbl} Take 1 Univers velpatasvir 8-17 tablet by ity of 400-100 mg 00:00: mouth in [place] 00 the Medical morning. Branch Food 2022-0 Yes [id number] 1{can} Take 1 Can Univers Supplement, 8-17 by mouth 3 it y of Lactose-[place] 00:00: (three) [place] e (ENSURE 00 times Medical HIGH daily with Branch PROTEIN) meals and liquid at bedtime. sofosbuvir- 2022-0 Yes [id number] 1{tbl} Take 1 Univers velpatasvir 8-17 tablet by ity of 400-100 mg 00:00: mouth in [place] 00 the Medical morning. Branch Food 2022-0 Yes [id number] 1{can} Take 1 Can Univers Supplement, 8-17 by mouth 3 it y of Lactose-[place] 00:00: (three) [place] e (ENSURE 00 times Medical HIGH daily with Branch PROTEIN) meals and liquid at bedtime. sofosbuvir- 2022-0 Yes [id number] 1{tbl} Take 1 Univers velpatasvir 8-17 tablet by ity of 400-100 mg 00:00: mouth in [place] 00 the Medical morning. Branch Food 2022-0 Yes [id number] 1{can} Take 1 Can Univers Supplement, 8-17 by mouth 3 it y of Lactose-Oboker 00:00: (three) [place] e (ENSURE 00 times Medical HIGH daily with Branch PROTEIN) meals and liquid at bedtime. sofosbuvir- 2022-0 Yes [id number] 1{tbl} Take 1 Univers velpatasvir 8-17 tablet by ity of 400-100 mg 00:00: mouth in [place] 00 the Medical morning. Branch Food 2022- Yes [id number] 1{can} Take 1 Can Univers Supplement, 8-17 by mouth 3 it y of Lactose-[place] 00:00: (three) [place] e (ENSURE 00 times Medical HIGH daily with Branch PROTEIN) meals and liquid at bedtime. sofosbuvir- 2022- Yes [id number] 1{tbl} Take 1 Univers velpatasvir 8-17 tablet by ity of 400-100 mg 00:00: mouth in [place] 00 the Medical morning. Branch Food 2022- Yes [id number] 1{can} Take 1 Can Univers Supplement, 8-17 by mouth 3 it y of Lactose-[place] 00:00: (three) [place] e (ENSURE 00 times Medical HIGH daily with Branch PROTEIN) meals and liquid at bedtime. sofosbuvir- 2022- Yes [id number] 1{tbl} Take 1 Univers velpatasvir 8-17 tablet by ity of 400-100 mg 00:00: mouth in [place] 00 the Medical morning. Branch Food 2022-0 Yes [id number] 1{can} Take 1 Can Univers Supplement, 8-17 by mouth 3 it y of Lactose-[place] 00:00: (three) [place] e (ENSURE 00 times Medical HIGH daily with Branch PROTEIN) meals and liquid at bedtime. sofosbuvir- 2022-0 Yes [id number] 1{tbl} Take 1 Univers velpatasvir 8-17 tablet by ity of 400-100 mg 00:00: mouth in [place] 00 the Medical morning. Branch Food 2022-0 Yes [id number] 1{can} Take 1 Can Univers Supplement, 8-17 by mouth 3 it y of Lactose-[place] 00:00: (three) [place] e (ENSURE 00 times Medical HIGH daily with Branch PROTEIN) meals and liquid at bedtime. sofosbuvir- 2022-0 Yes [id number] 1{tbl} Take 1 Univers velpatasvir 8-17 tablet by ity of 400-100 mg 00:00: mouth in [place] 00 the Medical morning. Branch Food 2022-0 Yes [id number] 1{can} Take 1 Can Univers Supplement, 8-17 by mouth 3 it y of Lactose-[place] 00:00: (three) [place] e (ENSURE 00 times Medical HIGH daily with Branch PROTEIN) meals and liquid at bedtime. sofosbuvir- 2022-0 Yes [id number] 1{tbl} Take 1 Univers velpatasvir 8-17 tablet by ity of 400-100 mg 00:00: mouth in [place] 00 the Medical morning. Branch Food 2022-0 Yes [id number] 1{can} Take 1 Can Univers Supplement, 8-17 by mouth 3 it y of Lactose-[place] 00:00: (three) [place] e (ENSURE 00 times Medical HIGH daily with Branch PROTEIN) meals and liquid at bedtime. sofosbuvir- 2022-0 Yes [id number] 1{tbl} Take 1 Univers velpatasvir 8-17 tablet by ity of 400-100 mg 00:00: mouth in [place] 00 the Medical morning. Branch Food 2022-0 Yes [id number] 1{can} Take 1 Can Univers Supplement, 8-17 by mouth 3 it y of Lactose-[place] 00:00: (three) [place] as e (ENSURE 00 times Medical HIGH daily with Branch PROTEIN) meals and liquid at bedtime. sofosbuvir- 2022-0 Yes [id number] 1{tbl} Take 1 Univers velpatasvir 8-17 tablet by ity of 400-100 mg 00:00: mouth in [place] 00 the Medical morning. Branch Food 2022-0 Yes [id number] 1{can} Take 1 Can Univers Supplement, 8-17 by mouth 3 it y of Lactose-[place] 00:00: (three) [place] e (ENSURE 00 times Medical HIGH daily with Branch PROTEIN) meals and liquid at bedtime. carvediloL 0 Yes [id number] 12.5mg Take 1 Univers 12.5 mg 8-09 tablet by ity of tablet 00:00: mouth in [address] Medical morning [place] and 1 tablet in the evening. Take with meals. carvediloL 2023-0 Yes [id number] 12.5mg Take 1 Univers 12.5 mg 8-09 tablet by ity of tablet 00:00: mouth in [address] morning [place] and 1 tablet in the evening. Take with meals. carvediloL 2023-0 Yes [id number] 12.5mg Take 1 Univers 12.5 mg 8-09 tablet by ity of tablet 00:00: mouth in [address] morning [place] and 1 tablet in the evening. Take with meals. carvediloL 2023-0 Yes [id number] 12.5mg Take 1 Univers 12.5 mg 8-09 tablet by ity of tablet 00:00: mouth in [address] morning [place] and 1 tablet in the evening. Take with meals. carvediloL 2023-0 Yes [id number] 12.5mg Take 1 Univers 12.5 mg 8-09 tablet by ity of tablet 00:00: mouth in [address] and 1 tablet in the evening. Take with meals. carvediloL 2023-0 Yes [id number] 12.5mg Take 1 Univers 12.5 mg 8-09 tablet by ity of tablet 00:00: mouth in [address] morning [place] and 1 tablet in the evening. Take with meals. carvediloL 2023-0 Yes [id number] 12.5mg Take 1 Univers 12.5 mg 8-09 tablet by ity of tablet 00:00: mouth in [address] morning [place] and 1 tablet in the evening. Take with meals. carvediloL 2023-0 Yes [id number] 12.5mg Take 1 Univers 12.5 mg 8-09 tablet by ity of tablet 00:00: mouth in [address] morning [place] and 1 tablet in the evening. Take with meals. carvediloL 2023-0 Yes [id number] 12.5mg Take 1 Univers 12.5 mg 8-09 tablet by ity of tablet 00:00: mouth in [address] morning [place] and 1 tablet in the evening. Take with meals. carvediloL 2023-0 Yes [id number] 12.5mg Take 1 Univers 12.5 mg 8-09 tablet by ity of tablet 00:00: mouth in [address] morning [place] and 1 tablet in the evening. Take with meals. carvediloL 2023-0 Yes [id number] 12.5mg Take 1 Univers 12.5 mg 8-09 tablet by ity of tablet 00:00: mouth in [address] morning [place] and 1 tablet in the evening. Take with meals. carvediloL 2023-0 Yes [id number] 12.5mg Take 1 Univers 12.5 mg 8-09 tablet by ity of tablet 00:00: mouth in [address] and 1 tablet in the evening. Take with meals. carvediloL 2023-0 Yes [id number] 12.5mg Take 1 Univers 12.5 mg 8-09 tablet by ity of tablet 00:00: mouth in [address] and 1 tablet in the evening. Take with meals. carvediloL 2023-0 Yes [id number] 12.5mg Take 1 Univers 12.5 mg 8-09 tablet by ity of tablet 00:00: mouth in [address] and 1 tablet in the evening. Take with meals. carvediloL 2023-0 Yes [id number] 12.5mg Take 1 Univers 12.5 mg 8-09 tablet by ity of tablet 00:00: mouth in [address] and 1 tablet in the evening. Take with meals. carvediloL 2023-0 Yes [id number] 12.5mg Take 1 Univers 12.5 mg 8-09 tablet by ity of tablet 00:00: mouth in [address] and 1 tablet in the evening. Take with meals. carvediloL 2023-0 Yes [id number] 12.5mg Take 1 Univers 12.5 mg 8-09 tablet by ity of tablet 00:00: mouth in [address] morning [place] and 1 tablet in the evening. Take with meals. carvediloL 2023-0 Yes [id number] 12.5mg Take 1 Univers 12.5 mg 8-09 tablet by ity of tablet 00:00: mouth in [address] and 1 tablet in the evening. Take with meals. carvediloL 2023-0 Yes [id number] 12.5mg Take 1 Univers 12.5 mg 8-09 tablet by ity of tablet 00:00: mouth in [address] and 1 tablet in the evening. Take with meals. methylPREDN 2023-0 Yes [id number] 84mg Take 21 Univers ISolone 7-05 tablets by ity of (MEDROL, 00:00: mouth [place] [facility],) 4 mg 00 SEE-INSTRU Med ical tablets CTIONS. Branch follow package directions methylPREDN 2023-0 Yes [id number] 84mg Take 21 [facility] ISolone 7-05 tablets by ity of (MEDROL, 00:00: mouth [place] [facility],) 4 mg 00 SEE-INSTRU Med ical tablets CTIONS. Branch follow package directions methylPREDN 3-0 Yes [id number] 84mg Take 21 [facility] ISolone 7-05 tablets by ity of (MEDROL, 00:00: mouth [place] [facility],) 4 mg 00 SEE-INSTRU Med ical tablets CTIONS. Branch follow package directions methylPREDN 2023-0 Yes [id number] 84mg Take 21 [facility] ISolone 7-05 tablets by ity of (MEDROL, 00:00: mouth [place] [facility],) 4 mg 00 SEE-INSTRU Med ical tablets CTIONS. Branch follow package directions methylPREDN 3-0 Yes [id number] 84mg Take 21 [facility] ISolone 7-05 tablets by ity of (MEDROL, 00:00: mouth [place] [facility],) 4 mg 00 SEE-INSTRU Med ical tablets CTIONS. Branch follow package directions methylPREDN 3-0 Yes [id number] 84mg Take 21 [facility] ISolone 7-05 tablets by ity of (MEDROL, 00:00: mouth [place] [facility],) 4 mg 00 SEE-INSTRU Med ical tablets CTIONS. Branch follow package directions methylPREDN 3-0 Yes [id number] 84mg Take 21 [facility] ISolone 7-05 tablets by ity of (MEDROL, 00:00: mouth [place] [facility],) 4 mg 00 SEE-INSTRU Med ical tablets CTIONS. Branch follow package directions methylPREDN 2023-0 Yes [id number] 84mg Take 21 [facility] ISolone 7-05 tablets by ity of (MEDROL, 00:00: mouth [place] [facility],) 4 mg 00 SEE-INSTRU Med ical tablets CTIONS. Branch follow package directions methylPREDN 2023-0 Yes [id number] 84mg Take 21 [facility] ISolone 7-05 tablets by ity of (MEDROL, 00:00: mouth [place] [facility],) 4 mg 00 SEE-INSTRU Med ical tablets CTIONS. Branch follow package directions methylPREDN 2022-0 Yes [id number] 84mg Take 21 [facility] ISolone 7-05 tablets by ity of (MEDROL, 00:00: mouth [place] [facility],) 4 mg 00 SEE-INSTRU Med ical tablets CTIONS. Branch follow package directions methylPREDN 2022-0 2022- No [id number] 84mg Take 21 [facility] ISolone 7-05 08-29 tablets by ity o f (MEDROL, 00:00: 00:00 mouth [place] [facility],) 4 mg 00 :00 SEE-INSTRU Med ical tablets CTIONS. Branch follow package directions methylPREDN 2022-0 2022- No [id number] 84mg Take 21 [facility] ISolone 7-05 08-29 tablets by ity o f (MEDROL, 00:00: 00:00 mouth [place] [facility],) 4 mg 00 :00 SEE-INSTRU Med ical tablets CTIONS. Branch follow package directions methylPREDN 2022-0 2022- No [id number] 84mg Take 21 [facility] ISolone 7-05 08-29 tablets by ity o f (MEDROL, 00:00: 00:00 mouth [place] [facility],) 4 mg 00 :00 SEE-INSTRU Med ical tablets CTIONS. Branch follow package directions lisinopriL 2022-0 Yes [id number] 20mg Take 1 [facility] nivers 20 mg 6-07 tablet by ity of tablet 00:00: mouth in [place] the Medical morning Branch and 1 tablet in the evening. atorvastati 2022-0 Yes [id number] 40mg Take 1 [facility] n 40 mg 6-07 tablet by ity of tablet 00:00: mouth in [place] the Medical morning. Branch lisinopriL 2022-0 Yes [id number] 20mg Take 1 U nivers 20 mg 6-07 tablet by ity of tablet 00:00: mouth in [place] the Medical morning Branch and 1 tablet in the evening. atorvastati 2022-0 Yes [id number] 40mg Take 1 [facility] n 40 mg 6-07 tablet by ity of tablet 00:00: mouth in [place] the Medical morning. Branch lisinopriL 2022-0 Yes [id number] 20mg Take 1 [facility] nivers 20 mg 6-07 tablet by ity of tablet 00:00: mouth in [place] 00 the Medical morning Branch and 1 tablet in the evening. atorvastati 2023-0 Yes [id number] 40mg Take 1 [facility] n 40 mg 6-07 tablet by ity of tablet 00:00: mouth in [place] 00 the Medical morning. Branch lisinopriL 2023-0 Yes [id number] 20mg Take 1 [facility] nivers 20 mg 6-07 tablet by ity of tablet 00:00: mouth in [place] 00 the Medical morning Branch and 1 tablet in the evening. atorvastati 3-0 Yes [id number] 40mg Take 1 [facility] n 40 mg 6-07 tablet by ity of tablet 00:00: mouth in [place] 00 the Medical morning. Branch lisinopriL 3-0 Yes [id number] 20mg Take 1 U nivers 20 mg 6-07 tablet by ity of tablet 00:00: mouth in [place] 00 the Medical morning Branch and 1 tablet in the evening. atorvastati 3-0 Yes [id number] 40mg Take 1 [facility] n 40 mg 6-07 tablet by ity of tablet 00:00: mouth in [place] 00 the Medical morning. Branch lisinopriL 3-0 Yes [id number] 20mg Take 1 [facility] nivers 20 mg 6-07 tablet by ity of tablet 00:00: mouth in [place] 00 the Medical morning Branch and 1 tablet in the evening. atorvastati 3-0 Yes [id number] 40mg Take 1 [facility] n 40 mg 6-07 tablet by ity of tablet 00:00: mouth in [place] 00 the Medical morning. Branch lisinopriL 2023-0 Yes [id number] 20mg Take 1 [facility] nivers 20 mg 6-07 tablet by ity of tablet 00:00: mouth in [place] 00 the Medical morning Branch and 1 tablet in the evening. atorvastati 2023-0 Yes [id number] 40mg Take 1 [facility] n 40 mg 6-07 tablet by ity of tablet 00:00: mouth in [place] 00 the Medical morning. Branch lisinopriL 2023-0 Yes [id number] 20mg Take 1 [facility] nivers 20 mg 6-07 tablet by ity of tablet 00:00: mouth in [place] 00 the Medical morning Branch and 1 tablet in the evening. atorvastati 2023-0 Yes [id number] 40mg Take 1 [facility] n 40 mg 6-07 tablet by ity of tablet 00:00: mouth in [place] 00 the Medical morning. Branch lisinopriL 2023-0 Yes [id number] 20mg Take 1 [facility] nivers 20 mg 6-07 tablet by ity of tablet 00:00: mouth in [place] 00 the Medical morning Branch and 1 tablet in the evening. atorvastati 2023-0 Yes [id number] 40mg Take 1 [facility] n 40 mg 6-07 tablet by ity of tablet 00:00: mouth in [place] 00 the Medical morning. Branch lisinopriL 3-0 Yes [id number] 20mg Take 1 [facility] nivers 20 mg 6-07 tablet by ity of tablet 00:00: mouth in [place] 00 the Medical morning Branch and 1 tablet in the evening. atorvastati 3-0 Yes [id number] 40mg Take 1 [facility] n 40 mg 6-07 tablet by ity of tablet 00:00: mouth in [place] 00 the Medical morning. Branch lisinopriL 3-0 Yes [id number] 20mg Take 1 [facility] nivers 20 mg 6-07 tablet by ity of tablet 00:00: mouth in [place] 00 the Medical morning Branch and 1 tablet in the evening. atorvastati 3-0 Yes [id number] 40mg Take 1 [facility] n 40 mg 6-07 tablet by ity of tablet 00:00: mouth in [place] 00 the Medical morning. Branch lisinopriL 3-0 Yes [id number] 20mg Take 1 [facility] nivers 20 mg 6-07 tablet by ity of tablet 00:00: mouth in [place] the Medical morning Branch and 1 tablet in the evening. atorvastati 2023-0 Yes [id number] 40mg Take 1 [facility] n 40 mg 6-07 tablet by ity of tablet 00:00: mouth in [place] 00 the Medical morning. Branch lisinopriL 2023-0 Yes [id number] 20mg Take 1 [facility] nivers 20 mg 6-07 tablet by ity of tablet 00:00: mouth in [place] 00 the Medical morning Branch and 1 tablet in the evening. atorvastati 2023-0 Yes [id number] 40mg Take 1 [facility] n 40 mg 6-07 tablet by ity of tablet 00:00: mouth in [place] 00 the Medical morning. Branch atorvastati 2023-0 Yes [id number] 40mg Take 1 [facility] n 40 mg 6-07 tablet by ity of tablet 00:00: mouth in [place] 00 the Medical morning. Branch atorvastati 3-0 Yes [id number] 40mg Take 1 [facility] n 40 mg 6-07 tablet by ity of tablet 00:00: mouth in [place] 00 the Medical morning. Branch atorvastati 3-0 Yes [id number] 40mg Take 1 [facility] n 40 mg 6-07 tablet by ity of tablet 00:00: mouth in [place] 00 the Medical morning. Branch atorvastati 3-0 Yes [id number] 40mg Take 1 [facility] n 40 mg 6-07 tablet by ity of tablet 00:00: mouth in [place] 00 the Medical morning. Branch atorvastati 3-0 Yes [id number] 40mg Take 1 [facility] n 40 mg 6-07 tablet by ity of tablet 00:00: mouth in [place] 00 the Medical morning. Branch atorvastati 3-0 Yes [id number] 40mg Take 1 [facility] n 40 mg 6-07 tablet by ity of tablet 00:00: mouth in [place] 00 the Medical morning. Branch atorvastati 3-0 Yes [id number] 40mg Take 1 [facility] n 40 mg 6-07 tablet by ity of tablet 00:00: mouth in [place] 00 the Medical morning. Branch atorvastati 3-0 Yes [id number] 40mg Take 1 [facility] n 40 mg 6-07 tablet by ity of tablet 00:00: mouth in [place] 00 the Medical morning. Branch atorvastati 3-0 Yes [id number] 40mg Take 1 [facility] n 40 mg 6-07 tablet by ity of tablet 00:00: mouth in [place] 00 the Medical morning. Branch atorvastati 3-0 Yes [id number] 40mg Take 1 [facility] n 40 mg 6-07 tablet by ity of tablet 00:00: mouth in [place] 00 the Medical morning. Branch atorvastati 3-0 Yes [id number] 40mg Take 1 [facility] n 40 mg 6-07 tablet by ity of tablet 00:00: mouth in [place] 00 the Medical morning. Branch atorvastati 3-0 Yes [id number] 40mg Take 1 [facility] n 40 mg 6-07 tablet by ity of tablet 00:00: mouth in [place] 00 the Medical morning. Branch lisinopriL 2023-0 Yes [id number] 20mg Take 1 [facility] nivers 20 mg - tablet by ity of tablet 00:00: mouth in [place] 00 the Medical morning Branch and 1 tablet in the evening. atorvastati Yes [id number] 40mg Take 1 [facility] n 40 mg - tablet by ity of tablet 00:00: mouth in [place] 00 the Medical morning. Branch lisinopriL 2022- No [id number] 20mg Take 1 [facility] 20 mg 01-22 tablet by ity of tablet 00:00: 00:00 mouth in [place] 00 :00 the Medical morning Branch and 1 tablet in the evening. lisinopriL 2022- No [id number] 20mg Take 1 [facility] 20 mg 01-22 tablet by ity of tablet 00:00: 00:00 mouth in [place] 00 :00 the Medical morning Branch and 1 tablet in the evening. lisinopriL 2022- No [id number] 20mg Take 1 [facility] 20 mg 01-22 tablet by ity of tablet 00:00: 00:00 mouth in [place] 00 :00 the Medical morning Branch and 1 tablet in the evening. ALPRAZolam 2022- No 2mg Take 1 [facility] ers 2 mg tablet 01-21- tablet by it y of 11:43: 00:00 mouth 3 [place] 43 :00 (three) Medical times [place] daily as needed for Anxiety. ALPRAZolam 2022- No 2mg Take 1 [facility] ers 2 mg tablet 01-21- tablet by it y of 11:43: 00:00 mouth 3 [place] 43 :00 (three) Medical times [place] daily as needed for Anxiety. B Yes [id number] 1{tbl} Take 1 Unive rs Complex-Fol - tablet by ity of ic Acid (B 00:00: mouth in [facility] as COMPLEX 1, 00 the Medical WITH FOLIC morning. Branc h ACID,) 0.4 mg Tab calcium Yes [id number] 500mg Take 1 [facility] vers carbonate - tablet by ity o f 500 mg 00:00: mouth in [place] calcium 00 the Medical (1,250 mg) morning. Branc h tablet nicotine 7 Yes [id number] 1{patch Apply 1 [facility] mg/24 hr 6-06 } Patch to ity of patch 00:00: area(s) [place] 00 every 24 Medical (twenty- Branch ur) hours. Apply 21mg patch daily x 6 weeks; then apply 14mf patch daily x 2 weeks; then apply 7mg patch daily x 2 weeks. Stop smoking on initiation of therapy nicotine 14 0 Yes [id number] 1{patch Apply 1 [facility] mg/24 hr 6-06 } Patch to ity of patch 00:00: area(s) [place] 00 every 24 Medical (twenty- Branch ur) hours. Apply 21mg patch daily x 6 weeks; then apply 14mf patch daily x 2 weeks; then apply 7mg patch daily x 2 weeks. Stop smoking on initiation of therapy nicotine 21 Yes [id number] 1{patch Apply 1 [facility] mg/24 hr 6-06 } Patch to ity of patch 00:00: area(s) in [place] 00 the Medical morning. Branch Apply 21mg patch daily x 6 weeks; then apply 14mf patch daily x 2 weeks; then apply 7mg patch daily x 2 weeks. Stop smoking on initiation of therapy cloNIDine Yes [id number] .2mg Take 1 Un mouna 0.2 mg 6-06 tablet by ity of tablet 00:00: mouth in [place] the Medical morning Branch and 1 tablet at noon and 1 tablet in the evening. Take for BP readings > 160/100 buPROPion Yes [id number] 75mg Take 1 [facility] ers 75 mg 6-06 tablet by ity of tablet 00:00: mouth in [place] the morning Branch and 1 tablet in the evening. gabapentin 0 Yes [id number] 100mg Take 1 [facility] 100 mg 6-06 capsule by ity of capsule 00:00: mouth in [place] 00 the Medical morning Branch and 1 capsule at noon and 1 capsule in the evening. B 0 Yes [id number] 1{tbl} Take 1 Unive rs Complex-Fol 6-06 tablet by ity of ic Acid (B 00:00: mouth in [facility] as COMPLEX 1, 00 the Medical WITH FOLIC morning. Branc h ACID,) 0.4 mg Tab calcium 0 Yes [id number] 500mg Take 1 Uni vers carbonate 6-06 tablet by ity o f 500 mg 00:00: mouth in [place] calcium 00 the Medical (1,250 mg) morning. Branc h tablet nicotine 7 0 Yes [id number] 1{patch Apply 1 [facility] mg/24 hr 6-06 } Patch to ity of patch 00:00: area(s) [place] 00 every 24 Medical ([facility] ur) hours. Apply 21mg patch daily x 6 weeks; then apply 14mf patch daily x 2 weeks; then apply 7mg patch daily x 2 weeks. Stop smoking on initiation of therapy nicotine 14 0 Yes [id number] 1{patch Apply 1 [facility] mg/24 hr 6-06 } Patch to ity of patch 00:00: area(s) [place] 00 every 24 Medical ([facility] ur) hours. Apply 21mg patch daily x 6 weeks; then apply 14mf patch daily x 2 weeks; then apply 7mg patch daily x 2 weeks. Stop smoking on initiation of therapy nicotine 21 0 Yes [id number] 1{patch Apply 1 [facility] mg/24 hr 6-06 } Patch to ity of patch 00:00: area(s) in [place] 00 the Medical morning. Branch Apply 21mg patch daily x 6 weeks; then apply 14mf patch daily x 2 weeks; then apply 7mg patch daily x 2 weeks. Stop smoking on initiation of therapy cloNIDine 2022- Yes [id number] .2mg Take 1 Un mouna 0.2 mg 6-06 tablet by ity of tablet 00:00: mouth in [address] morning Branch and 1 tablet at noon and 1 tablet in the evening. Take for BP readings > 160/100 buPROPion 2022-0 Yes [id number] 75mg Take 1 Univ ers 75 mg 6-06 tablet by ity of tablet 00:00: mouth in [address] morning Branch and 1 tablet in the evening. gabapentin 0 Yes [id number] 100mg Take 1 [facility] 100 mg 6-06 capsule by ity of capsule 00:00: mouth in [address] morning Branch and 1 capsule at noon and 1 capsule in the evening. B 2022-0 Yes [id number] 1{tbl} Take 1 Unive rs Complex-Fol 6-06 tablet by ity of ic Acid (B 00:00: mouth in [facility] as COMPLEX 1, 00 the Medical WITH FOLIC morning. Branc h ACID,) 0.4 mg Tab calcium Yes [id number] 500mg Take 1 Uni vers carbonate 6-06 tablet by ity o f 500 mg 00:00: mouth in [place] calcium 00 the Medical (1,250 mg) morning. Branc h tablet nicotine 7 Yes [id number] 1{patch Apply 1 [facility] mg/24 hr 6-06 } Patch to ity of patch 00:00: area(s) [place] 00 every 24 Medical ([facility] ur) hours. Apply 21mg patch daily x 6 weeks; then apply 14mf patch daily x 2 weeks; then apply 7mg patch daily x 2 weeks. Stop smoking on initiation of therapy nicotine 14 Yes [id number] 1{patch Apply 1 [facility] mg/24 hr 6-06 } Patch to ity of patch 00:00: area(s) [place] 00 every 24 Medical ([facility] ur) hours. Apply 21mg patch daily x 6 weeks; then apply 14mf patch daily x 2 weeks; then apply 7mg patch daily x 2 weeks. Stop smoking on initiation of therapy nicotine 21 Yes [id number] 1{patch Apply 1 [facility] mg/24 hr 6-06 } Patch to ity of patch 00:00: area(s) in [place] 00 the Medical morning. Branch Apply 21mg patch daily x 6 weeks; then apply 14mf patch daily x 2 weeks; then apply 7mg patch daily x 2 weeks. Stop smoking on initiation of therapy cloNIDine Yes [id number] .2mg Take 1 Un mouna 0.2 mg 6-06 tablet by ity of tablet 00:00: mouth in [place] the Branch and 1 tablet at noon and 1 tablet in the evening. Take for BP readings > 160/100 buPROPion Yes [id number] 75mg Take 1 Univ ers 75 mg 6-06 tablet by ity of tablet 00:00: mouth in [place] [address] the morning Branch and 1 tablet in the evening. gabapentin Yes [id number] 100mg Take 1 [facility] 100 mg 6-06 capsule by ity of capsule 00:00: mouth in [place] [address] the Branch and 1 capsule at noon and 1 capsule in the evening. B Yes [id number] 1{tbl} Take 1 Unive rs Complex-Fol 6-06 tablet by ity of ic Acid (B 00:00: mouth in [facility] as COMPLEX 1, 00 the Medical WITH FOLIC morning. Branc h ACID,) 0.4 mg Tab calcium Yes [id number] 500mg Take 1 Uni vers carbonate 6-06 tablet by ity o f 500 mg 00:00: mouth in [place] calcium 00 the Medical (1,250 mg) morning. Branc h tablet nicotine 7 Yes [id number] 1{patch Apply 1 [facility] mg/24 hr 6-06 } Patch to ity of patch 00:00: area(s) [place] 00 every 24 Medical ([facility] Branch ur) hours. Apply 21mg patch daily x 6 weeks; then apply 14mf patch daily x 2 weeks; then apply 7mg patch daily x 2 weeks. Stop smoking on initiation of therapy nicotine 14 Yes [id number] 1{patch Apply 1 [facility] mg/24 hr 6-06 } Patch to ity of patch 00:00: area(s) [place] 00 every 24 Medical ([facility] ur) hours. Apply 21mg patch daily x 6 weeks; then apply 14mf patch daily x 2 weeks; then apply 7mg patch daily x 2 weeks. Stop smoking on initiation of therapy nicotine 21 Yes [id number] 1{patch Apply 1 [facility] mg/24 hr 6-06 } Patch to ity of patch 00:00: area(s) in [place] 00 the Medical morning. Branch Apply 21mg patch daily x 6 weeks; then apply 14mf patch daily x 2 weeks; then apply 7mg patch daily x 2 weeks. Stop smoking on initiation of therapy cloNIDine Yes [id number] .2mg Take 1 Un mouna 0.2 mg 6-06 tablet by ity of tablet 00:00: mouth in [place] [address] the morning Branch and 1 tablet at noon and 1 tablet in the evening. Take for BP readings > 160/100 buPROPion 0 Yes [id number] 75mg Take 1 Univ ers 75 mg 6-06 tablet by ity of tablet 00:00: mouth in [address] morning Branch and 1 tablet in the evening. gabapentin Yes [id number] 100mg Take 1 [facility] 100 mg 6-06 capsule by ity of capsule 00:00: mouth in [place] [address] the morning Branch and 1 capsule at noon and 1 capsule in the evening. B Yes [id number] 1{tbl} Take 1 Unive rs Complex-Fol 6-06 tablet by ity of ic Acid (B 00:00: mouth in [facility] as COMPLEX 1, 00 the Medical WITH FOLIC morning. Branc h ACID,) 0.4 mg Tab calcium Yes [id number] 500mg Take 1 Uni vers carbonate 6-06 tablet by ity o f 500 mg 00:00: mouth in [place] calcium 00 the Medical (1,250 mg) morning. Branc h tablet nicotine 7 Yes [id number] 1{patch Apply 1 [facility] mg/24 hr 6-06 } Patch to ity of patch 00:00: area(s) [place] 00 every 24 Medical ([facility] ur) hours. Apply 21mg patch daily x 6 weeks; then apply 14mf patch daily x 2 weeks; then apply 7mg patch daily x 2 weeks. Stop smoking on initiation of therapy nicotine 14 Yes [id number] 1{patch Apply 1 [facility] mg/24 hr 6-06 } Patch to ity of patch 00:00: area(s) [place] 00 every 24 Medical ([facility] ur) hours. Apply 21mg patch daily x 6 weeks; then apply 14mf patch daily x 2 weeks; then apply 7mg patch daily x 2 weeks. Stop smoking on initiation of therapy nicotine 21 Yes [id number] 1{patch Apply 1 [facility] mg/24 hr 6-06 } Patch to ity of patch 00:00: area(s) in [place] 00 the Medical morning. Branch Apply 21mg patch daily x 6 weeks; then apply 14mf patch daily x 2 weeks; then apply 7mg patch daily x 2 weeks. Stop smoking on initiation of therapy cloNIDine Yes [id number] .2mg Take 1 Un mouna 0.2 mg 6-06 tablet by ity of tablet 00:00: mouth in [place] the morning Branch and 1 tablet at noon and 1 tablet in the evening. Take for BP readings > 160/100 buPROPion Yes [id number] 75mg Take 1 Univ ers 75 mg 6-06 tablet by ity of tablet 00:00: mouth in [place] the morning Branch and 1 tablet in the evening. gabapentin Yes [id number] 100mg Take 1 [facility] 100 mg 6-06 capsule by ity of capsule 00:00: mouth in [place] 00 the Medical morning Branch and 1 capsule at noon and 1 capsule in the evening. B Yes [id number] 1{tbl} Take 1 Unive rs Complex-Fol 6-06 tablet by ity of ic Acid (B 00:00: mouth in [place] as COMPLEX 1, 00 the Medical WITH FOLIC morning. Branc h ACID,) 0.4 mg Tab calcium Yes [id number] 500mg Take 1 Uni vers carbonate 6-06 tablet by ity o f 500 mg 00:00: mouth in [place] calcium 00 the Medical (1,250 mg) morning. Branc h tablet nicotine 7 Yes [id number] 1{patch Apply 1 [facility] mg/24 hr 6-06 } Patch to ity of patch 00:00: area(s) [place] 00 every 24 Medical ([facility] Branch ur) hours. Apply 21mg patch daily x 6 weeks; then apply 14mf patch daily x 2 weeks; then apply 7mg patch daily x 2 weeks. Stop smoking on initiation of therapy nicotine 14 Yes [id number] 1{patch Apply 1 [facility] mg/24 hr 6-06 } Patch to ity of patch 00:00: area(s) [place] 00 every 24 Medical ([facility] ur) hours. Apply 21mg patch daily x 6 weeks; then apply 14mf patch daily x 2 weeks; then apply 7mg patch daily x 2 weeks. Stop smoking on initiation of therapy nicotine 21 Yes [id number] 1{patch Apply 1 [facility] mg/24 hr 6-06 } Patch to ity of patch 00:00: area(s) in [place] 00 the Medical morning. Branch Apply 21mg patch daily x 6 weeks; then apply 14mf patch daily x 2 weeks; then apply 7mg patch daily x 2 weeks. Stop smoking on initiation of therapy cloNIDine Yes [id number] .2mg Take 1 Un mouna 0.2 mg 6-06 tablet by ity of tablet 00:00: mouth in [place] 00 the Medical morning Branch and 1 tablet at noon and 1 tablet in the evening. Take for BP readings > 160/100 buPROPion Yes [id number] 75mg Take 1 Univ ers 75 mg 6-06 tablet by ity of tablet 00:00: mouth in [place] 00 the Medical morning Branch and 1 tablet in the evening. gabapentin Yes [id number] 100mg Take 1 [facility] 100 mg 6-06 capsule by ity of capsule 00:00: mouth in [place] 00 the Medical morning Branch and 1 capsule at noon and 1 capsule in the evening. B Yes [id number] 1{tbl} Take 1 Unive rs Complex-Fol 6-06 tablet by ity of ic Acid (B 00:00: mouth in [facility] as COMPLEX 1, 00 the Medical WITH FOLIC morning. Branc h ACID,) 0.4 mg Tab calcium Yes [id number] 500mg Take 1 Uni vers carbonate 6-06 tablet by ity o f 500 mg 00:00: mouth in [place] calcium 00 the [facility] (1,250 mg) morning. Branc h tablet nicotine 7 Yes [id number] 1{patch Apply 1 [facility] mg/24 hr 6-06 } Patch to ity of patch 00:00: area(s) [place] 00 every 24 Medical ([facility] ur) hours. Apply 21mg patch daily x 6 weeks; then apply 14mf patch daily x 2 weeks; then apply 7mg patch daily x 2 weeks. Stop smoking on initiation of therapy nicotine 14 Yes [id number] 1{patch Apply 1 [facility] mg/24 hr 6-06 } Patch to ity of patch 00:00: area(s) [place] 00 every 24 Medical ([facility] ur) hours. Apply 21mg patch daily x 6 weeks; then apply 14mf patch daily x 2 weeks; then apply 7mg patch daily x 2 weeks. Stop smoking on initiation of therapy nicotine 21 Yes [id number] 1{patch Apply 1 [facility] mg/24 hr 6-06 } Patch to ity of patch 00:00: area(s) in [place] 00 the Medical morning. Branch Apply 21mg patch daily x 6 weeks; then apply 14mf patch daily x 2 weeks; then apply 7mg patch daily x 2 weeks. Stop smoking on initiation of therapy cloNIDine 2022- Yes [id number] .2mg Take 1 Un mouna 0.2 mg 6-06 tablet by ity of tablet 00:00: mouth in [place] 00 the Medical morning Branch and 1 tablet at noon and 1 tablet in the evening. Take for BP readings > 160/100 buPROPion Yes [id number] 75mg Take 1 Univ ers 75 mg 6-06 tablet by ity of tablet 00:00: mouth in [place] 00 the Medical morning Branch and 1 tablet in the evening. gabapentin Yes [id number] 100mg Take 1 [facility] 100 mg 6-06 capsule by ity of capsule 00:00: mouth in [place] 00 the Medical morning Branch and 1 capsule at noon and 1 capsule in the evening. B Yes [id number] 1{tbl} Take 1 Unive rs Complex-Fol 6-06 tablet by ity of ic Acid (B 00:00: mouth in [facility] as COMPLEX 1, 00 the Medical WITH FOLIC morning. Branc h ACID,) 0.4 mg Tab calcium Yes [id number] 500mg Take 1 Uni vers carbonate 6-06 tablet by ity o f 500 mg 00:00: mouth in [place] calcium 00 the [facility] (1,250 mg) morning. Branc h tablet nicotine 7 Yes [id number] 1{patch Apply 1 [facility] mg/24 hr 6-06 } Patch to ity of patch 00:00: area(s) [place] 00 every 24 Medical ([facility] ur) hours. Apply 21mg patch daily x 6 weeks; then apply 14mf patch daily x 2 weeks; then apply 7mg patch daily x 2 weeks. Stop smoking on initiation of therapy nicotine 14 Yes [id number] 1{patch Apply 1 [facility] mg/24 hr 6-06 } Patch to ity of patch 00:00: area(s) [place] 00 every 24 Medical ([facility] ur) hours. Apply 21mg patch daily x 6 weeks; then apply 14mf patch daily x 2 weeks; then apply 7mg patch daily x 2 weeks. Stop smoking on initiation of therapy nicotine 21 Yes [id number] 1{patch Apply 1 [facility] mg/24 hr 6-06 } Patch to ity of patch 00:00: area(s) in [place] 00 the Medical morning. Branch Apply 21mg patch daily x 6 weeks; then apply 14mf patch daily x 2 weeks; then apply 7mg patch daily x 2 weeks. Stop smoking on initiation of therapy cloNIDine Yes [id number] .2mg Take 1 Un mouna 0.2 mg 6-06 tablet by ity of tablet 00:00: mouth in [place] 00 the Medical morning Branch and 1 tablet at noon and 1 tablet in the evening. Take for BP readings > 160/100 buPROPion 2022-0 Yes [id number] 75mg Take 1 [facility] ers 75 mg 6-06 tablet by ity of tablet 00:00: mouth in [place] 00 the Medical morning Branch and 1 tablet in the evening. gabapentin 2022-0 Yes [id number] 100mg Take 1 [facility] 100 mg 6-06 capsule by ity of capsule 00:00: mouth in [place] 00 the Medical morning Branch and 1 capsule at noon and 1 capsule in the evening. B 2022-0 Yes [id number] 1{tbl} Take 1 Unive rs Complex-Fol 6-06 tablet by ity of ic Acid (B 00:00: mouth in [facility] as COMPLEX 1, 00 the Medical WITH FOLIC morning. Branc h ACID,) 0.4 mg Tab calcium 0 Yes [id number] 500mg Take 1 Uni vers carbonate 6-06 tablet by ity o f 500 mg 00:00: mouth in [place] calcium 00 the [facility] (1,250 mg) morning. Branc h tablet nicotine 7 0 Yes [id number] 1{patch Apply 1 [facility] mg/24 hr 6-06 } Patch to ity of patch 00:00: area(s) [place] 00 every 24 Medical ([facility] ur) hours. Apply 21mg patch daily x 6 weeks; then apply 14mf patch daily x 2 weeks; then apply 7mg patch daily x 2 weeks. Stop smoking on initiation of therapy nicotine 14 2022-0 Yes [id number] 1{patch Apply 1 [facility] mg/24 hr 6-06 } Patch to ity of patch 00:00: area(s) [place] 00 every 24 Medical ([facility] ur) hours. Apply 21mg patch daily x 6 weeks; then apply 14mf patch daily x 2 weeks; then apply 7mg patch daily x 2 weeks. Stop smoking on initiation of therapy nicotine 21 2022-0 Yes [id number] 1{patch Apply 1 [facility] mg/24 hr 6-06 } Patch to ity of patch 00:00: area(s) in [place] 00 the Medical morning. Branch Apply 21mg patch daily x 6 weeks; then apply 14mf patch daily x 2 weeks; then apply 7mg patch daily x 2 weeks. Stop smoking on initiation of therapy cloNIDine Yes [id number] .2mg Take 1 Un mouna 0.2 mg 6-06 tablet by ity of tablet 00:00: mouth in [place] 00 the Medical morning Branch and 1 tablet at noon and 1 tablet in the evening. Take for BP readings > 160/100 buPROPion Yes [id number] 75mg Take 1 [facility] ers 75 mg 6-06 tablet by ity of tablet 00:00: mouth in [place] 00 the Medical morning Branch and 1 tablet in the evening. gabapentin Yes [id number] 100mg Take 1 [facility] 100 mg 6-06 capsule by ity of capsule 00:00: mouth in [place] 00 the [facility] morning Branch and 1 capsule at noon and 1 capsule in the evening. B Yes [id number] 1{tbl} Take 1 Unive rs Complex-Fol 6-06 tablet by ity of ic Acid (B 00:00: mouth in [facility] as COMPLEX 1, 00 the Medical WITH FOLIC morning. Branc h ACID,) 0.4 mg Tab calcium Yes [id number] 500mg Take 1 Uni vers carbonate 6-06 tablet by ity o f 500 mg 00:00: mouth in [place] calcium 00 the [facility] (1,250 mg) morning. Branc h tablet nicotine 7 Yes [id number] 1{patch Apply 1 [facility] mg/24 hr 6-06 } Patch to ity of patch 00:00: area(s) [place] 00 every 24 Medical ([facility] ur) hours. Apply 21mg patch daily x 6 weeks; then apply 14mf patch daily x 2 weeks; then apply 7mg patch daily x 2 weeks. Stop smoking on initiation of therapy nicotine 14 0 Yes [id number] 1{patch Apply 1 [facility] mg/24 hr 6-06 } Patch to ity of patch 00:00: area(s) [place] 00 every 24 Medical ([facility] ur) hours. Apply 21mg patch daily x 6 weeks; then apply 14mf patch daily x 2 weeks; then apply 7mg patch daily x 2 weeks. Stop smoking on initiation of therapy nicotine 21 2022-0 Yes [id number] 1{patch Apply 1 [facility] mg/24 hr 6-06 } Patch to ity of patch 00:00: area(s) in [place] 00 the Medical morning. Branch Apply 21mg patch daily x 6 weeks; then apply 14mf patch daily x 2 weeks; then apply 7mg patch daily x 2 weeks. Stop smoking on initiation of therapy cloNIDine Yes [id number] .2mg Take 1 Un mouna 0.2 mg 6-06 tablet by ity of tablet 00:00: mouth in [place] 00 the Medical morning Branch and 1 tablet at noon and 1 tablet in the evening. Take for BP readings > 160/100 buPROPion Yes [id number] 75mg Take 1 [facility] ers 75 mg 6-06 tablet by ity of tablet 00:00: mouth in [place] 00 the Medical morning Branch and 1 tablet in the evening. gabapentin Yes [id number] 100mg Take 1 [facility] 100 mg 6-06 capsule by ity of capsule 00:00: mouth in [place] 00 the Medical morning Branch and 1 capsule at noon and 1 capsule in the evening. B 0 Yes [id number] 1{tbl} Take 1 Unive rs Complex-Fol 6-06 tablet by ity of ic Acid (B 00:00: mouth in [facility] as COMPLEX 1, 00 the Medical WITH FOLIC morning. Branc h ACID,) 0.4 mg Tab calcium Yes [id number] 500mg Take 1 Uni vers carbonate 6-06 tablet by ity o f 500 mg 00:00: mouth in [place] calcium 00 the [facility] (1,250 mg) morning. Branc h tablet nicotine 7 2022-0 Yes [id number] 1{patch Apply 1 [facility] mg/24 hr 6-06 } Patch to ity of patch 00:00: area(s) [place] 00 every 24 Medical ([facility] Branch ur) hours. Apply 21mg patch daily x 6 weeks; then apply 14mf patch daily x 2 weeks; then apply 7mg patch daily x 2 weeks. Stop smoking on initiation of therapy nicotine 14 2022-0 Yes [id number] 1{patch Apply 1 [facility] mg/24 hr 6-06 } Patch to ity of patch 00:00: area(s) [place] 00 every 24 Medical ([facility] Branch ur) hours. Apply 21mg patch daily x 6 weeks; then apply 14mf patch daily x 2 weeks; then apply 7mg patch daily x 2 weeks. Stop smoking on initiation of therapy nicotine 21 Yes [id number] 1{patch Apply 1 [facility] mg/24 hr 6-06 } Patch to ity of patch 00:00: area(s) in [place] 00 the Medical morning. Branch Apply 21mg patch daily x 6 weeks; then apply 14mf patch daily x 2 weeks; then apply 7mg patch daily x 2 weeks. Stop smoking on initiation of therapy cloNIDine Yes [id number] .2mg Take 1 Un mouna 0.2 mg 6-06 tablet by ity of tablet 00:00: mouth in [place] 00 the Medical morning Branch and 1 tablet at noon and 1 tablet in the evening. Take for BP readings > 160/100 buPROPion Yes [id number] 75mg Take 1 [facility] ers 75 mg 6-06 tablet by ity of tablet 00:00: mouth in [place] the [facility] morning Branch and 1 tablet in the evening. gabapentin Yes [id number] 100mg Take 1 [facility] 100 mg 6-06 capsule by ity of capsule 00:00: mouth in [place] [address] the [facility] morning Branch and 1 capsule at noon and 1 capsule in the evening. B Yes [id number] 1{tbl} Take 1 Unive rs Complex-Fol 6-06 tablet by ity of ic Acid (B 00:00: mouth in [facility] as COMPLEX 1, 00 the Medical WITH FOLIC morning. Branc h ACID,) 0.4 mg Tab calcium Yes [id number] 500mg Take 1 Uni vers carbonate 6-06 tablet by ity o f 500 mg 00:00: mouth in [place] calcium 00 the Medical (1,250 mg) morning. Branc h tablet nicotine 7 Yes [id number] 1{patch Apply 1 [facility] mg/24 hr 6-06 } Patch to ity of patch 00:00: area(s) [place] 00 every 24 Medical (twenty- Branch ur) hours. Apply 21mg patch daily x 6 weeks; then apply 14mf patch daily x 2 weeks; then apply 7mg patch daily x 2 weeks. Stop smoking on initiation of therapy nicotine 14 0 Yes [id number] 1{patch Apply 1 [facility] mg/24 hr 6-06 } Patch to ity of patch 00:00: area(s) [place] 00 every 24 Medical (twenty- Branch ur) hours. Apply 21mg patch daily x 6 weeks; then apply 14mf patch daily x 2 weeks; then apply 7mg patch daily x 2 weeks. Stop smoking on initiation of therapy nicotine 21 Yes [id number] 1{patch Apply 1 [facility] mg/24 hr 6-06 } Patch to ity of patch 00:00: area(s) in [place] 00 the Medical morning. Branch Apply 21mg patch daily x 6 weeks; then apply 14mf patch daily x 2 weeks; then apply 7mg patch daily x 2 weeks. Stop smoking on initiation of therapy cloNIDine 2022- Yes [id number] .2mg Take 1 Un mouna 0.2 mg 6-06 tablet by ity of tablet 00:00: mouth in [place] 00 the morning Branch and 1 tablet at noon and 1 tablet in the evening. Take for BP readings > 160/100 buPROPion Yes [id number] 75mg Take 1 [facility] ers 75 mg 6-06 tablet by ity of tablet 00:00: mouth in [place] the morning Branch and 1 tablet in the evening. gabapentin Yes [id number] 100mg Take 1 [facility] 100 mg 6-06 capsule by ity of capsule 00:00: mouth in [place] 00 the morning Branch and 1 capsule at noon and 1 capsule in the evening. B Yes [id number] 1{tbl} Take 1 Unive rs Complex-Fol 6-06 tablet by ity of ic Acid (B 00:00: mouth in [facility] as COMPLEX 1, 00 the Medical WITH FOLIC morning. Branc h ACID,) 0.4 mg Tab calcium Yes [id number] 500mg Take 1 Uni vers carbonate 6-06 tablet by ity o f 500 mg 00:00: mouth in [place] calcium 00 the Medical (1,250 mg) morning. Branc h tablet nicotine 7 0 Yes [id number] 1{patch Apply 1 [facility] mg/24 hr 6-06 } Patch to ity of patch 00:00: area(s) [place] 00 every 24 Medical (twenty-fo Branch ur) hours. Apply 21mg patch daily x 6 weeks; then apply 14mf patch daily x 2 weeks; then apply 7mg patch daily x 2 weeks. Stop smoking on initiation of therapy nicotine 14 Yes [id number] 1{patch Apply 1 [facility] mg/24 hr 6-06 } Patch to ity of patch 00:00: area(s) [place] 00 every 24 Medical ( Branch ur) hours. Apply 21mg patch daily x 6 weeks; then apply 14mf patch daily x 2 weeks; then apply 7mg patch daily x 2 weeks. Stop smoking on initiation of therapy nicotine 21 0 Yes [id number] 1{patch Apply 1 [facility] mg/24 hr 6-06 } Patch to ity of patch 00:00: area(s) in [place] 00 the Medical morning. Branch Apply 21mg patch daily x 6 weeks; then apply 14mf patch daily x 2 weeks; then apply 7mg patch daily x 2 weeks. Stop smoking on initiation of therapy cloNIDine Yes [id number] .2mg Take 1 Un mouna 0.2 mg 6-06 tablet by ity of tablet 00:00: mouth in [place] [address] the [facility] morning Branch and 1 tablet at noon and 1 tablet in the evening. Take for BP readings > 160/100 buPROPion Yes [id number] 75mg Take 1 [facility] ers 75 mg 6-06 tablet by ity of tablet 00:00: mouth in [place] [address] the morning Branch and 1 tablet in the evening. gabapentin Yes [id number] 100mg Take 1 [facility] 100 mg 6-06 capsule by ity of capsule 00:00: mouth in [place] [address] the morning Branch and 1 capsule at noon and 1 capsule in the evening. B Yes [id number] 1{tbl} Take 1 Unive rs Complex-Fol 6-06 tablet by ity of ic Acid (B 00:00: mouth in [facility] as COMPLEX 1, 00 the Medical WITH FOLIC morning. Branc h ACID,) 0.4 mg Tab calcium 0 Yes [id number] 500mg Take 1 Uni vers carbonate 6-06 tablet by ity o f 500 mg 00:00: mouth in [place] calcium 00 the Medical (1,250 mg) morning. Branc h tablet nicotine 7 Yes [id number] 1{patch Apply 1 [facility] mg/24 hr 6-06 } Patch to ity of patch 00:00: area(s) [place] 00 every 24 Medical ( Branch ur) hours. Apply 21mg patch daily x 6 weeks; then apply 14mf patch daily x 2 weeks; then apply 7mg patch daily x 2 weeks. Stop smoking on initiation of therapy nicotine 14 0 Yes [id number] 1{patch Apply 1 [facility] mg/24 hr 6-06 } Patch to ity of patch 00:00: area(s) [place] 00 every 24 Medical (twenty-fo Branch ur) hours. Apply 21mg patch daily x 6 weeks; then apply 14mf patch daily x 2 weeks; then apply 7mg patch daily x 2 weeks. Stop smoking on initiation of therapy nicotine 21 Yes [id number] 1{patch Apply 1 [facility] mg/24 hr 6-06 } Patch to ity of patch 00:00: area(s) in [place] 00 the Medical morning. Branch Apply 21mg patch daily x 6 weeks; then apply 14mf patch daily x 2 weeks; then apply 7mg patch daily x 2 weeks. Stop smoking on initiation of therapy cloNIDine Yes [id number] .2mg Take 1 Un mouna 0.2 mg 6-06 tablet by ity of tablet 00:00: mouth in [place] the [facility] morning Branch and 1 tablet at noon and 1 tablet in the evening. Take for BP readings > 160/100 buPROPion Yes [id number] 75mg Take 1 [facility] ers 75 mg 6-06 tablet by ity of tablet 00:00: mouth in [place] [address] the morning Branch and 1 tablet in the evening. gabapentin Yes [id number] 100mg Take 1 [facility] 100 mg 6-06 capsule by ity of capsule 00:00: mouth in [place] [address] the [facility] morning Branch and 1 capsule at noon and 1 capsule in the evening. B 0 Yes [id number] 1{tbl} Take 1 Unive rs Complex-Fol 6-06 tablet by ity of ic Acid (B 00:00: mouth in [facility] as COMPLEX 1, 00 the Medical WITH FOLIC morning. Branc h ACID,) 0.4 mg Tab calcium 0 Yes [id number] 500mg Take 1 Uni vers carbonate 6-06 tablet by ity o f 500 mg 00:00: mouth in [place] calcium 00 the Medical (1,250 mg) morning. Branc h tablet nicotine 7 2022-0 Yes [id number] 1{patch Apply 1 [facility] mg/24 hr 6-06 } Patch to ity of patch 00:00: area(s) [place] 00 every 24 Medical (twenty- Branch ur) hours. Apply 21mg patch daily x 6 weeks; then apply 14mf patch daily x 2 weeks; then apply 7mg patch daily x 2 weeks. Stop smoking on initiation of therapy nicotine 14 Yes [id number] 1{patch Apply 1 [facility] mg/24 hr 6-06 } Patch to ity of patch 00:00: area(s) [place] 00 every 24 Medical (twenty- Branch ur) hours. Apply 21mg patch daily x 6 weeks; then apply 14mf patch daily x 2 weeks; then apply 7mg patch daily x 2 weeks. Stop smoking on initiation of therapy nicotine 21 Yes [id number] 1{patch Apply 1 [facility] mg/24 hr 6-06 } Patch to ity of patch 00:00: area(s) in [place] 00 the Medical morning. Branch Apply 21mg patch daily x 6 weeks; then apply 14mf patch daily x 2 weeks; then apply 7mg patch daily x 2 weeks. Stop smoking on initiation of therapy cloNIDine Yes [id number] .2mg Take 1 Un mouna 0.2 mg 6-06 tablet by ity of tablet 00:00: mouth in [place] 00 the Medical morning Branch and 1 tablet at noon and 1 tablet in the evening. Take for BP readings > 160/100 buPROPion Yes [id number] 75mg Take 1 [facility] ers 75 mg 6-06 tablet by ity of tablet 00:00: mouth in [place] 00 the Medical morning Branch and 1 tablet in the evening. gabapentin 0 Yes [id number] 100mg Take 1 [facility] 100 mg 6-06 capsule by ity of capsule 00:00: mouth in [place] 00 the Medical morning Branch and 1 capsule at noon and 1 capsule in the evening. B 2022-0 Yes [id number] 1{tbl} Take 1 Unive rs Complex-Fol 6-06 tablet by ity of ic Acid (B 00:00: mouth in [facility] as COMPLEX 1, 00 the Medical WITH FOLIC morning. Branc h ACID,) 0.4 mg Tab calcium 0 Yes [id number] 500mg Take 1 Uni vers carbonate 6-06 tablet by ity o f 500 mg 00:00: mouth in [place] calcium 00 the Medical (1,250 mg) morning. Branc h tablet nicotine 7 Yes [id number] 1{patch Apply 1 [facility] mg/24 hr 6-06 } Patch to ity of patch 00:00: area(s) [place] 00 every 24 Medical ([facility] Branch ur) hours. Apply 21mg patch daily x 6 weeks; then apply 14mf patch daily x 2 weeks; then apply 7mg patch daily x 2 weeks. Stop smoking on initiation of therapy nicotine 14 Yes [id number] 1{patch Apply 1 [facility] mg/24 hr 6-06 } Patch to ity of patch 00:00: area(s) [place] 00 every 24 Medical ([facility] Branch ur) hours. Apply 21mg patch daily x 6 weeks; then apply 14mf patch daily x 2 weeks; then apply 7mg patch daily x 2 weeks. Stop smoking on initiation of therapy nicotine 21 Yes [id number] 1{patch Apply 1 [facility] mg/24 hr 6-06 } Patch to ity of patch 00:00: area(s) in [place] 00 the Medical morning. Branch Apply 21mg patch daily x 6 weeks; then apply 14mf patch daily x 2 weeks; then apply 7mg patch daily x 2 weeks. Stop smoking on initiation of therapy cloNIDine Yes [id number] .2mg Take 1 Un mouna 0.2 mg 6-06 tablet by ity of tablet 00:00: mouth in [place] the morning Branch and 1 tablet at noon and 1 tablet in the evening. Take for BP readings > 160/100 buPROPion Yes [id number] 75mg Take 1 [facility] ers 75 mg 6-06 tablet by ity of tablet 00:00: mouth in [place] the morning Branch and 1 tablet in the evening. gabapentin 0 Yes [id number] 100mg Take 1 [facility] 100 mg 6-06 capsule by ity of capsule 00:00: mouth in [place] the morning Branch and 1 capsule at noon and 1 capsule in the evening. B 0 Yes [id number] 1{tbl} Take 1 Unive rs Complex-Fol 6-06 tablet by ity of ic Acid (B 00:00: mouth in [facility] as COMPLEX 1, 00 the Medical WITH FOLIC morning. Branc h ACID,) 0.4 mg Tab calcium 0 Yes [id number] 500mg Take 1 Uni vers carbonate 6-06 tablet by ity o f 500 mg 00:00: mouth in [place] calcium 00 the Medical (1,250 mg) morning. Branc h tablet nicotine 7 Yes [id number] 1{patch Apply 1 [facility] mg/24 hr 6-06 } Patch to ity of patch 00:00: area(s) [place] 00 every 24 Medical ([facility] Branch ur) hours. Apply 21mg patch daily x 6 weeks; then apply 14mf patch daily x 2 weeks; then apply 7mg patch daily x 2 weeks. Stop smoking on initiation of therapy nicotine 14 Yes [id number] 1{patch Apply 1 [facility] mg/24 hr 6-06 } Patch to ity of patch 00:00: area(s) [place] 00 every 24 Medical ([facility] ur) hours. Apply 21mg patch daily x 6 weeks; then apply 14mf patch daily x 2 weeks; then apply 7mg patch daily x 2 weeks. Stop smoking on initiation of therapy nicotine 21 Yes [id number] 1{patch Apply 1 [facility] mg/24 hr 6-06 } Patch to ity of patch 00:00: area(s) in [place] 00 the Medical morning. Branch Apply 21mg patch daily x 6 weeks; then apply 14mf patch daily x 2 weeks; then apply 7mg patch daily x 2 weeks. Stop smoking on initiation of therapy cloNIDine Yes [id number] .2mg Take 1 Un mouna 0.2 mg 6-06 tablet by ity of tablet 00:00: mouth in [place] the Medical morning Branch and 1 tablet at noon and 1 tablet in the evening. Take for BP readings > 160/100 buPROPion Yes [id number] 75mg Take 1 [facility] ers 75 mg 6-06 tablet by ity of tablet 00:00: mouth in [place] the Medical morning Branch and 1 tablet in the evening. gabapentin Yes [id number] 100mg Take 1 [facility] 100 mg 6-06 capsule by ity of capsule 00:00: mouth in [place] 00 the Medical morning Branch and 1 capsule at noon and 1 capsule in the evening. B 0 Yes [id number] 1{tbl} Take 1 Unive rs Complex-Fol 6-06 tablet by ity of ic Acid (B 00:00: mouth in [facility] as COMPLEX 1, 00 the Medical WITH FOLIC morning. Branc h ACID,) 0.4 mg Tab calcium Yes [id number] 500mg Take 1 Uni vers carbonate 6-06 tablet by ity o f 500 mg 00:00: mouth in [place] calcium 00 the Medical (1,250 mg) morning. Branc h tablet nicotine 7 Yes [id number] 1{patch Apply 1 [facility] mg/24 hr 6-06 } Patch to ity of patch 00:00: area(s) [place] 00 every 24 Medical ([facility] Branch ur) hours. Apply 21mg patch daily x 6 weeks; then apply 14mf patch daily x 2 weeks; then apply 7mg patch daily x 2 weeks. Stop smoking on initiation of therapy nicotine 14 Yes [id number] 1{patch Apply 1 [facility] mg/24 hr 6-06 } Patch to ity of patch 00:00: area(s) [place] 00 every 24 Medical ([facility] Branch ur) hours. Apply 21mg patch daily x 6 weeks; then apply 14mf patch daily x 2 weeks; then apply 7mg patch daily x 2 weeks. Stop smoking on initiation of therapy nicotine 21 Yes [id number] 1{patch Apply 1 [facility] mg/24 hr 6-06 } Patch to ity of patch 00:00: area(s) in [place] 00 the Medical morning. Branch Apply 21mg patch daily x 6 weeks; then apply 14mf patch daily x 2 weeks; then apply 7mg patch daily x 2 weeks. Stop smoking on initiation of therapy cloNIDine Yes [id number] .2mg Take 1 Un mouna 0.2 mg 6-06 tablet by ity of tablet 00:00: mouth in [place] [address] the morning Branch and 1 tablet at noon and 1 tablet in the evening. Take for BP readings > 160/100 buPROPion Yes [id number] 75mg Take 1 Univ ers 75 mg 6-06 tablet by ity of tablet 00:00: mouth in [address] morning Branch and 1 tablet in the evening. gabapentin Yes [id number] 100mg Take 1 [facility] 100 mg 6-06 capsule by ity of capsule 00:00: mouth in [address] morning Branch and 1 capsule at noon and 1 capsule in the evening. B Yes [id number] 1{tbl} Take 1 Unive rs Complex-Fol 6-06 tablet by ity of ic Acid (B 00:00: mouth in [place] as COMPLEX 1, 00 the Medical WITH FOLIC morning. Branc h ACID,) 0.4 mg Tab calcium 0 Yes [id number] 500mg Take 1 Uni vers carbonate 6-06 tablet by ity o f 500 mg 00:00: mouth in [place] calcium 00 the Medical (1,250 mg) morning. Branc h tablet nicotine 7 Yes [id number] 1{patch Apply 1 [facility] mg/24 hr 6-06 } Patch to ity of patch 00:00: area(s) [place] 00 every 24 Medical ([facility] Branch ur) hours. Apply 21mg patch daily x 6 weeks; then apply 14mf patch daily x 2 weeks; then apply 7mg patch daily x 2 weeks. Stop smoking on initiation of therapy nicotine 14 0 Yes [id number] 1{patch Apply 1 [facility] mg/24 hr 6-06 } Patch to ity of patch 00:00: area(s) [place] 00 every 24 Medical ([facility] ur) hours. Apply 21mg patch daily x 6 weeks; then apply 14mf patch daily x 2 weeks; then apply 7mg patch daily x 2 weeks. Stop smoking on initiation of therapy nicotine 21 Yes [id number] 1{patch Apply 1 [facility] mg/24 hr 6-06 } Patch to ity of patch 00:00: area(s) in [place] 00 the Medical morning. Branch Apply 21mg patch daily x 6 weeks; then apply 14mf patch daily x 2 weeks; then apply 7mg patch daily x 2 weeks. Stop smoking on initiation of therapy cloNIDine 2022- Yes [id number] .2mg Take 1 Un mouna 0.2 mg 6-06 tablet by ity of tablet 00:00: mouth in [place] [address] the Medical morning Branch and 1 tablet at noon and 1 tablet in the evening. Take for BP readings > 160/100 buPROPion 0 Yes [id number] 75mg Take 1 Univ ers 75 mg 6-06 tablet by ity of tablet 00:00: mouth in [place] [address] the morning Branch and 1 tablet in the evening. gabapentin 0 Yes [id number] 100mg Take 1 [facility] 100 mg 6-06 capsule by ity of capsule 00:00: mouth in [place] [address] the morning Branch and 1 capsule at noon and 1 capsule in the evening. B Yes [id number] 1{tbl} Take 1 Unive rs Complex-Fol 6-06 tablet by ity of ic Acid (B 00:00: mouth in [facility] as COMPLEX 1, 00 the Medical WITH FOLIC morning. Branc h ACID,) 0.4 mg Tab calcium Yes [id number] 500mg Take 1 Uni vers carbonate 6-06 tablet by ity o f 500 mg 00:00: mouth in [place] calcium 00 the Medical (1,250 mg) morning. Branc h tablet nicotine 7 Yes [id number] 1{patch Apply 1 [facility] mg/24 hr 6-06 } Patch to ity of patch 00:00: area(s) [place] 00 every 24 Medical ([facility] ur) hours. Apply 21mg patch daily x 6 weeks; then apply 14mf patch daily x 2 weeks; then apply 7mg patch daily x 2 weeks. Stop smoking on initiation of therapy nicotine 14 Yes [id number] 1{patch Apply 1 [facility] mg/24 hr 6-06 } Patch to ity of patch 00:00: area(s) [place] 00 every 24 Medical ([facility] ur) hours. Apply 21mg patch daily x 6 weeks; then apply 14mf patch daily x 2 weeks; then apply 7mg patch daily x 2 weeks. Stop smoking on initiation of therapy nicotine 21 Yes [id number] 1{patch Apply 1 [facility] mg/24 hr 6-06 } Patch to ity of patch 00:00: area(s) in [place] 00 the Medical morning. Branch Apply 21mg patch daily x 6 weeks; then apply 14mf patch daily x 2 weeks; then apply 7mg patch daily x 2 weeks. Stop smoking on initiation of therapy cloNIDine Yes [id number] .2mg Take 1 Un mouna 0.2 mg 6-06 tablet by ity of tablet 00:00: mouth in [place] the morning Branch and 1 tablet at noon and 1 tablet in the evening. Take for BP readings > 160/100 buPROPion 0 Yes [id number] 75mg Take 1 Univ ers 75 mg 6-06 tablet by ity of tablet 00:00: mouth in [place] the morning Branch and 1 tablet in the evening. gabapentin Yes [id number] 100mg Take 1 [facility] 100 mg 6-06 capsule by ity of capsule 00:00: mouth in [place] 00 the Medical morning Branch and 1 capsule at noon and 1 capsule in the evening. B Yes [id number] 1{tbl} Take 1 Unive rs Complex-Fol 6-06 tablet by ity of ic Acid (B 00:00: mouth in [facility] as COMPLEX 1, 00 the Medical WITH FOLIC morning. Branc h ACID,) 0.4 mg Tab calcium Yes [id number] 500mg Take 1 Uni vers carbonate 6-06 tablet by ity o f 500 mg 00:00: mouth in [place] calcium 00 the Medical (1,250 mg) morning. Branc h tablet nicotine 7 Yes [id number] 1{patch Apply 1 [facility] mg/24 hr 6-06 } Patch to ity of patch 00:00: area(s) [place] 00 every 24 Medical ([facility] ur) hours. Apply 21mg patch daily x 6 weeks; then apply 14mf patch daily x 2 weeks; then apply 7mg patch daily x 2 weeks. Stop smoking on initiation of therapy nicotine 14 Yes [id number] 1{patch Apply 1 [facility] mg/24 hr 6-06 } Patch to ity of patch 00:00: area(s) [place] 00 every 24 Medical ([facility] ur) hours. Apply 21mg patch daily x 6 weeks; then apply 14mf patch daily x 2 weeks; then apply 7mg patch daily x 2 weeks. Stop smoking on initiation of therapy nicotine 21 Yes [id number] 1{patch Apply 1 [facility] mg/24 hr 6-06 } Patch to ity of patch 00:00: area(s) in [place] 00 the Medical morning. Branch Apply 21mg patch daily x 6 weeks; then apply 14mf patch daily x 2 weeks; then apply 7mg patch daily x 2 weeks. Stop smoking on initiation of therapy cloNIDine Yes [id number] .2mg Take 1 Un mouna 0.2 mg 6-06 tablet by ity of tablet 00:00: mouth in [place] 00 the Medical morning Branch and 1 tablet at noon and 1 tablet in the evening. Take for BP readings > 160/100 buPROPion Yes [id number] 75mg Take 1 Univ ers 75 mg 6-06 tablet by ity of tablet 00:00: mouth in [place] the Medical morning Branch and 1 tablet in the evening. gabapentin Yes [id number] 100mg Take 1 [facility] 100 mg 6-06 capsule by ity of capsule 00:00: mouth in [place] 00 the morning Branch and 1 capsule at noon and 1 capsule in the evening. B Yes [id number] 1{tbl} Take 1 Unive rs Complex-Fol 6-06 tablet by ity of ic Acid (B 00:00: mouth in [place] [facility] as COMPLEX 1, 00 the Medical WITH FOLIC morning. Branc h ACID,) 0.4 mg Tab calcium Yes [id number] 500mg Take 1 Uni vers carbonate 6-06 tablet by ity o f 500 mg 00:00: mouth in [place] calcium 00 the [facility] (1,250 mg) morning. Branc h tablet nicotine 7 2022- Yes [id number] 1{patch Apply 1 [facility] mg/24 hr 6-06 } Patch to ity of patch 00:00: area(s) [place] 00 every 24 Medical ([facility] ur) hours. Apply 21mg patch daily x 6 weeks; then apply 14mf patch daily x 2 weeks; then apply 7mg patch daily x 2 weeks. Stop smoking on initiation of therapy nicotine 14 Yes [id number] 1{patch Apply 1 [facility] mg/24 hr 6-06 } Patch to ity of patch 00:00: area(s) [place] 00 every 24 Medical ([facility] ur) hours. Apply 21mg patch daily x 6 weeks; then apply 14mf patch daily x 2 weeks; then apply 7mg patch daily x 2 weeks. Stop smoking on initiation of therapy nicotine 21 2022- Yes [id number] 1{patch Apply 1 [facility] mg/24 hr 6-06 } Patch to ity of patch 00:00: area(s) in [place] 00 the Medical morning. Branch Apply 21mg patch daily x 6 weeks; then apply 14mf patch daily x 2 weeks; then apply 7mg patch daily x 2 weeks. Stop smoking on initiation of therapy cloNIDine 2022-0 Yes [id number] .2mg Take 1 Un mouna 0.2 mg 6-06 tablet by ity of tablet 00:00: mouth in [place] 00 the Medical morning Branch and 1 tablet at noon and 1 tablet in the evening. Take for BP readings > 160/100 buPROPion Yes [id number] 75mg Take 1 Univ ers 75 mg 6-06 tablet by ity of tablet 00:00: mouth in [place] 00 the Medical morning Branch and 1 tablet in the evening. gabapentin 0 Yes [id number] 100mg Take 1 [facility] 100 mg 6-06 capsule by ity of capsule 00:00: mouth in [place] 00 the Medical morning Branch and 1 capsule at noon and 1 capsule in the evening. B 2022-0 Yes [id number] 1{tbl} Take 1 Unive rs Complex-Fol 6-06 tablet by ity of ic Acid (B 00:00: mouth in [place] [facility] as COMPLEX 1, 00 the Medical WITH FOLIC morning. Branc h ACID,) 0.4 mg Tab calcium 0 Yes [id number] 500mg Take 1 Uni vers carbonate 6-06 tablet by ity o f 500 mg 00:00: mouth in [place] calcium 00 the [facility] (1,250 mg) morning. Branc h tablet nicotine 7 Yes [id number] 1{patch Apply 1 [facility] mg/24 hr 6-06 } Patch to ity of patch 00:00: area(s) [place] 00 every 24 Medical ([facility] ur) hours. Apply 21mg patch daily x 6 weeks; then apply 14mf patch daily x 2 weeks; then apply 7mg patch daily x 2 weeks. Stop smoking on initiation of therapy nicotine 14 Yes [id number] 1{patch Apply 1 [facility] mg/24 hr 6-06 } Patch to ity of patch 00:00: area(s) [place] 00 every 24 Medical ([facility] ur) hours. Apply 21mg patch daily x 6 weeks; then apply 14mf patch daily x 2 weeks; then apply 7mg patch daily x 2 weeks. Stop smoking on initiation of therapy nicotine 21 Yes [id number] 1{patch Apply 1 [facility] mg/24 hr 6-06 } Patch to ity of patch 00:00: area(s) in [place] 00 the Medical morning. Branch Apply 21mg patch daily x 6 weeks; then apply 14mf patch daily x 2 weeks; then apply 7mg patch daily x 2 weeks. Stop smoking on initiation of therapy cloNIDine 2023-0 Yes [id number] .2mg Take 1 Un mouna 0.2 mg 6-06 tablet by ity of tablet 00:00: mouth in [place] 00 the Medical morning Branch and 1 tablet at noon and 1 tablet in the evening. Take for BP readings > 160/100 buPROPion 2022-0 Yes [id number] 75mg Take 1 Univ ers 75 mg 6-06 tablet by ity of tablet 00:00: mouth in [place] 00 the Medical morning Branch and 1 tablet in the evening. gabapentin 2022-0 Yes [id number] 100mg Take 1 [facility] 100 mg 6-06 capsule by ity of capsule 00:00: mouth in [place] 00 the Medical morning Branch and 1 capsule at noon and 1 capsule in the evening. B 2022-0 Yes [id number] 1{tbl} Take 1 Unive rs Complex-Fol 6-06 tablet by ity of ic Acid (B 00:00: mouth in [facility] as COMPLEX 1, 00 the Medical WITH FOLIC morning. Branc h ACID,) 0.4 mg Tab calcium 0 Yes [id number] 500mg Take 1 Uni vers carbonate 6-06 tablet by ity o f 500 mg 00:00: mouth in [place] calcium 00 the [facility] (1,250 mg) morning. Branc h tablet nicotine 7 Yes [id number] 1{patch Apply 1 [facility] mg/24 hr 6-06 } Patch to ity of patch 00:00: area(s) [place] 00 every 24 Medical ([facility] ur) hours. Apply 21mg patch daily x 6 weeks; then apply 14mf patch daily x 2 weeks; then apply 7mg patch daily x 2 weeks. Stop smoking on initiation of therapy nicotine 14 2022- Yes [id number] 1{patch Apply 1 [facility] mg/24 hr 6-06 } Patch to ity of patch 00:00: area(s) [place] 00 every 24 Medical ([facility] ur) hours. Apply 21mg patch daily x 6 weeks; then apply 14mf patch daily x 2 weeks; then apply 7mg patch daily x 2 weeks. Stop smoking on initiation of therapy nicotine 21 2022-0 Yes [id number] 1{patch Apply 1 [facility] mg/24 hr 6-06 } Patch to ity of patch 00:00: area(s) in [place] 00 the Medical morning. Branch Apply 21mg patch daily x 6 weeks; then apply 14mf patch daily x 2 weeks; then apply 7mg patch daily x 2 weeks. Stop smoking on initiation of therapy cloNIDine Yes [id number] .2mg Take 1 Un mouna 0.2 mg 6-06 tablet by ity of tablet 00:00: mouth in [place] 00 the Medical morning Branch and 1 tablet at noon and 1 tablet in the evening. Take for BP readings > 160/100 buPROPion Yes [id number] 75mg Take 1 Univ ers 75 mg 6-06 tablet by ity of tablet 00:00: mouth in [place] [address] the [facility] morning Branch and 1 tablet in the evening. gabapentin Yes [id number] 100mg Take 1 [facility] 100 mg 6-06 capsule by ity of capsule 00:00: mouth in [place] [address] the [facility] morning Branch and 1 capsule at noon and 1 capsule in the evening. B Yes [id number] 1{tbl} Take 1 Unive rs Complex-Fol 6-06 tablet by ity of ic Acid (B 00:00: mouth in [facility] as COMPLEX 1, 00 the Medical WITH FOLIC morning. Branc h ACID,) 0.4 mg Tab calcium Yes [id number] 500mg Take 1 Uni vers carbonate 6-06 tablet by ity o f 500 mg 00:00: mouth in [place] calcium 00 the [facility] (1,250 mg) morning. Branc h tablet nicotine 7 Yes [id number] 1{patch Apply 1 [facility] mg/24 hr 6-06 } Patch to ity of patch 00:00: area(s) [place] 00 every 24 Medical ([facility]) hours. Apply 21mg patch daily x 6 weeks; then apply 14mf patch daily x 2 weeks; then apply 7mg patch daily x 2 weeks. Stop smoking on initiation of therapy nicotine 14 Yes [id number] 1{patch Apply 1 [facility] mg/24 hr 6-06 } Patch to ity of patch 00:00: area(s) [place] 00 every 24 Medical ([facility] ur) hours. Apply 21mg patch daily x 6 weeks; then apply 14mf patch daily x 2 weeks; then apply 7mg patch daily x 2 weeks. Stop smoking on initiation of therapy nicotine 21 2022- Yes [id number] 1{patch Apply 1 [facility] mg/24 hr 6-06 } Patch to ity of patch 00:00: area(s) in [place] 00 the Medical morning. Branch Apply 21mg patch daily x 6 weeks; then apply 14mf patch daily x 2 weeks; then apply 7mg patch daily x 2 weeks. Stop smoking on initiation of therapy cloNIDine Yes [id number] .2mg Take 1 Un mouna 0.2 mg 6-06 tablet by ity of tablet 00:00: mouth in [place] 00 the Medical morning Branch and 1 tablet at noon and 1 tablet in the evening. Take for BP readings > 160/100 buPROPion Yes [id number] 75mg Take 1 Univ ers 75 mg 6-06 tablet by ity of tablet 00:00: mouth in [place] 00 the Medical morning Branch and 1 tablet in the evening. gabapentin Yes [id number] 100mg Take 1 [facility] 100 mg 6-06 capsule by ity of capsule 00:00: mouth in [place] 00 the [facility] morning Branch and 1 capsule at noon and 1 capsule in the evening. B Yes [id number] 1{tbl} Take 1 Unive rs Complex-Fol 6-06 tablet by ity of ic Acid (B 00:00: mouth in [place] [facility] as COMPLEX 1, 00 the Medical WITH FOLIC morning. Branc h ACID,) 0.4 mg Tab calcium Yes [id number] 500mg Take 1 Uni vers carbonate 6-06 tablet by ity o f 500 mg 00:00: mouth in [place] calcium 00 the Medical (1,250 mg) morning. Branc h tablet nicotine 7 Yes [id number] 1{patch Apply 1 [facility] mg/24 hr 6-06 } Patch to ity of patch 00:00: area(s) [place] 00 every 24 Medical ([facility] Branch ur) hours. Apply 21mg patch daily x 6 weeks; then apply 14mf patch daily x 2 weeks; then apply 7mg patch daily x 2 weeks. Stop smoking on initiation of therapy nicotine 14 Yes [id number] 1{patch Apply 1 [facility] mg/24 hr 6-06 } Patch to ity of patch 00:00: area(s) [place] 00 every 24 Medical ([facility] Branch ur) hours. Apply 21mg patch daily x 6 weeks; then apply 14mf patch daily x 2 weeks; then apply 7mg patch daily x 2 weeks. Stop smoking on initiation of therapy nicotine 21 Yes [id number] 1{patch Apply 1 [facility] mg/24 hr 6-06 } Patch to ity of patch 00:00: area(s) in [place] 00 the Medical morning. Branch Apply 21mg patch daily x 6 weeks; then apply 14mf patch daily x 2 weeks; then apply 7mg patch daily x 2 weeks. Stop smoking on initiation of therapy cloNIDine Yes [id number] .2mg Take 1 Un mouna 0.2 mg 6-06 tablet by ity of tablet 00:00: mouth in [place] 00 the morning Branch and 1 tablet at noon and 1 tablet in the evening. Take for BP readings > 160/100 buPROPion Yes [id number] 75mg Take 1 Univ ers 75 mg 6-06 tablet by ity of tablet 00:00: mouth in [place] [address] the morning Branch and 1 tablet in the evening. gabapentin Yes [id number] 100mg Take 1 [facility] 100 mg 6-06 capsule by ity of capsule 00:00: mouth in [place] [address] the [facility] morning Branch and 1 capsule at noon and 1 capsule in the evening. B Yes [id number] 1{tbl} Take 1 Unive rs Complex-Fol 6-06 tablet by ity of ic Acid (B 00:00: mouth in [facility] as COMPLEX 1, 00 the Medical WITH FOLIC morning. Branc h ACID,) 0.4 mg Tab calcium Yes [id number] 500mg Take 1 Uni vers carbonate 6-06 tablet by ity o f 500 mg 00:00: mouth in [place] calcium 00 the Medical (1,250 mg) morning. Branc h tablet nicotine 7 Yes [id number] 1{patch Apply 1 [facility] mg/24 hr 6-06 } Patch to ity of patch 00:00: area(s) [place] 00 every 24 Medical ( Branch ur) hours. Apply 21mg patch daily x 6 weeks; then apply 14mf patch daily x 2 weeks; then apply 7mg patch daily x 2 weeks. Stop smoking on initiation of therapy nicotine 14 2022-0 Yes [id number] 1{patch Apply 1 [facility] mg/24 hr 6-06 } Patch to ity of patch 00:00: area(s) [place] 00 every 24 [facility]. Apply 21mg patch daily x 6 weeks; then apply 14mf patch daily x 2 weeks; then apply 7mg patch daily x 2 weeks. Stop smoking on initiation of therapy nicotine 21 Yes [id number] 1{patch Apply 1 [facility] mg/24 hr 6-06 } Patch to ity of patch 00:00: area(s) in [place] 00 the Medical morning. Branch Apply 21mg patch daily x 6 weeks; then apply 14mf patch daily x 2 weeks; then apply 7mg patch daily x 2 weeks. Stop smoking on initiation of therapy cloNIDine Yes [id number] .2mg Take 1 Un mouna 0.2 mg 6-06 tablet by ity of tablet 00:00: mouth in [place] 00 the morning Branch and 1 tablet at noon and 1 tablet in the evening. Take for BP readings > 160/100 buPROPion Yes [id number] 75mg Take 1 Univ ers 75 mg 6-06 tablet by ity of tablet 00:00: mouth in [place] the morning Branch and 1 tablet in the evening. gabapentin Yes [id number] 100mg Take 1 [facility] 100 mg 6-06 capsule by ity of capsule 00:00: mouth in [place] 00 the [facility] morning Branch and 1 capsule at noon and 1 capsule in the evening. B Yes [id number] 1{tbl} Take 1 Unive rs Complex-Fol 6-06 tablet by ity of ic Acid (B 00:00: mouth in [facility] as COMPLEX 1, 00 the Medical WITH FOLIC morning. Branc h ACID,) 0.4 mg Tab calcium Yes [id number] 500mg Take 1 Uni vers carbonate 6-06 tablet by ity o f 500 mg 00:00: mouth in [place] calcium 00 the Medical (1,250 mg) morning. Branc h tablet nicotine 7 0 Yes [id number] 1{patch Apply 1 [facility] mg/24 hr 6-06 } Patch to ity of patch 00:00: area(s) [place] 00 every 24 Medical ([facility] ur) hours. Apply 21mg patch daily x 6 weeks; then apply 14mf patch daily x 2 weeks; then apply 7mg patch daily x 2 weeks. Stop smoking on initiation of therapy nicotine 14 2023-0 Yes [id number] 1{patch Apply 1 [facility] mg/24 hr 6-06 } Patch to ity of patch 00:00: area(s) [place] 00 every 24 Medical ([facility] ur) hours. Apply 21mg patch daily x 6 weeks; then apply 14mf patch daily x 2 weeks; then apply 7mg patch daily x 2 weeks. Stop smoking on initiation of therapy nicotine 21 0 Yes [id number] 1{patch Apply 1 [facility] mg/24 hr 6-06 } Patch to ity of patch 00:00: area(s) in [place] 00 the Medical morning. Branch Apply 21mg patch daily x 6 weeks; then apply 14mf patch daily x 2 weeks; then apply 7mg patch daily x 2 weeks. Stop smoking on initiation of therapy cloNIDine Yes [id number] .2mg Take 1 Un mouna 0.2 mg 6-06 tablet by ity of tablet 00:00: mouth in [place] 00 the morning Branch and 1 tablet at noon and 1 tablet in the evening. Take for BP readings > 160/100 buPROPion 0 Yes [id number] 75mg Take 1 Univ ers 75 mg 6-06 tablet by ity of tablet 00:00: mouth in [place] 00 the morning Branch and 1 tablet in the evening. gabapentin Yes [id number] 100mg Take 1 [facility] 100 mg 6-06 capsule by ity of capsule 00:00: mouth in [place] 00 the morning Branch and 1 capsule at noon and 1 capsule in the evening. ketorolac 2022- No [id number] 30mg Univers (TORADOL) 01-06 9102 ity of injection 16:21: 16:24 [place] 30 mg 00 :00 [facility] Branch ketorolac 0 2022- No [id number] 30mg 30 mg, Univers (TORADOL) 01-06 9102 Intramuscu ity of injection 16:21: 16:24 [place], ONCE, [place] 30 mg 00 :00 1 dose, On [facility] Mon Branch 01/06/23 at 1130, Routine naproxen 0 2022- No [id number] 500mg Take 1 U nivers 500 mg 01-06 tablet by ity of tablet 00:00: 04:59 mouth 2 [place] 00 :00 (two) Medical times Branch daily with meals as needed for Pain (scale 4-6) for up to 10 days. naproxen 2022-0 2022- No [id number] 500mg Take 1 U nivers 500 mg 01-06- tablet by ity of tablet 00:00: 04:59 mouth 2 [place] 00 :00 (two) Medical times Branch daily with meals as needed for Pain (scale 4-6) for up to 10 days. naproxen 2022-0 2022- No [id number] 500mg Take 1 U nivers 500 mg 01-06- tablet by ity of tablet 00:00: 04:59 mouth 2 [place] 00 :00 (two) Medical times Branch daily with meals as needed for Pain (scale 4-6) for up to 10 days. methocarbam 2022-0 2022- No [id number] 500mg Take 1 Univers oL 500 mg 5- 05-30 tablet by ity of tablet 00:00: 04:59 mouth 4 [place] 00 :00 (four) Medical times Branch daily as needed for Pain (scale 7-10) for up to 7 days. methocarbam 2022-0 2022- No [id number] 500mg Take 1 Univers oL 500 mg 5- 05-30 tablet by ity of tablet 00:00: 04:59 mouth 4 [place] 00 :00 (four) Medical times Branch daily as needed for Pain (scale 7-10) for up to 7 days. methocarbam 2022-0 3- No [id number] 500mg Take 1 Univers oL 500 mg 5-22 05-30 tablet by ity of tablet 00:00: 04:59 mouth 4 [place] 00 :00 (four) Medical times Branch daily as needed for Pain (scale 7-10) for up to 7 days. water for 2022- No PRN, Univers irrigation 12-27 Starting ity of irrigation 13:00: 13:42 on Fri [place] solution 00 :30 12/27/22 at Medic al 0800, Branch Until 12/27/22 at 0842, Routine, Intra-op simethicone 2022- No PRN, Unive rs (GAS RELIEF 12-27 Starting ity of (SIMETHICON 13:00: 13:42 on Fri [place] as E)) 40 00 :30 12/27/22 at Medical mg/0.6 mL 0800, Branch drops Until Fri12/27/22 at 0842, Routine, Intra-op lactated 3-0 2023- No 1000mL at 42 Unive rs ringers IV 5-12 05-12 mL/hr, ity of infusion 12:15: 12:20 1,000 mL, [place] as 1,000 mL 00 :00 IV Medical Infusion, Branch ONCE, 1 dose, On Fri12/27/22 at 0715, Routine, DSU Pre-op lactated 2023-0 2023- No 1000mL at 42 Unive rs ringers IV 5-12 05-12 mL/hr, ity of infusion 12:15: 12:20 1,000 mL, [place] 1,000 mL 00 :00 IV Medical Infusion, Branch ONCE, 1 dose, On Fri12/27/22 at 0715, Routine, DSU Pre-op ALPRAZolam 2023-0 Yes 2mg Take 1 Unive rs 2 mg tablet 5-12 tablet by ity of 09:23: mouth 3 [place] 48 (three) Medical times Branch daily as needed for Anxiety. ALPRAZolam 2023-0 Yes 2mg Take 1 Unive rs 2 mg tablet 5-12 tablet by ity of 09:23: mouth 3 [place] 48 (three) Medical times Branch daily as needed for Anxiety. ALPRAZolam 2023-0 Yes 2mg Take 1 Unive rs 2 mg tablet 5-12 tablet by ity of 09:23: mouth 3 [place] 48 (three) Medical times Branch daily as needed for Anxiety. ALPRAZolam 2023-0 Yes 2mg Take 1 Unive rs 2 mg tablet 5-12 tablet by ity of 09:23: mouth 3 [place] 48 (three) Medical times Branch daily as needed for Anxiety. ALPRAZolam 2023-0 Yes 2mg Take 1 Unive rs 2 mg tablet 5-12 tablet by ity of 09:23: mouth 3 [place] 48 (three) Medical times Branch daily as needed for Anxiety. ALPRAZolam 2023-0 Yes 2mg Take 1 Unive rs 2 mg tablet 5-12 tablet by ity of 09:23: mouth 3 [place] 48 (three) Medical times Branch daily as needed for Anxiety. ALPRAZolam 2023-0 Yes 2mg Take 1 Unive rs 2 mg tablet 5-12 tablet by ity of 09:23: mouth 3 [place] 48 (three) Medical times [place] daily as needed for Anxiety. metoprolol 2022-0 Yes [id number] 100mg Take 1 U nivers succinate 4-24 tablet by ity o f XL 100 mg 00:00: mouth in [place] 24 [place] 00 the Medical tablet morning. Branch Miscellaneo 2022-0 Yes [id number] Blood U nivers us Medical 4-24 pressure ity o f Supply 00:00: check [place] (BLOOD 00 twice a Medical PRESSURE day and as Branc h CUFF) Misc needed. metoprolol 2022-0 Yes [id number] 100mg Take 1 U nivers succinate 4-24 tablet by ity o f XL 100 mg 00:00: mouth in [place] 24 [place] 00 the Medical tablet morning. Branch Miscellaneo 2022-0 Yes [id number] Blood U nivers us Medical 4-24 pressure ity o f Supply 00:00: check [place] (BLOOD 00 twice a Medical PRESSURE day and as Branc h CUFF) Misc needed. metoprolol 2022-0 Yes [id number] 100mg Take 1 U nivers succinate 4-24 tablet by ity o f XL 100 mg 00:00: mouth [place] 00 the Medical tablet morning. Branch Miscellaneo 2022-0 Yes [id number] Blood U nivers us Medical 4-24 pressure ity o f Supply 00:00: check [place] (BLOOD 00 twice a Medical PRESSURE day and as Branc h CUFF) Misc needed. metoprolol 2022-0 Yes [id number] 100mg Take 1 U nivers succinate 4-24 tablet by ity o f XL 100 mg 00:00: mouth [place] 00 the Medical tablet morning. Branch Miscellaneo 2022-0 Yes [id number] Blood U nivers us Medical 4-24 pressure ity o f Supply 00:00: check [place] (BLOOD 00 twice a Medical PRESSURE day and as Branc h CUFF) Misc needed. metoprolol 2022-0 Yes [id number] 100mg Take 1 U nivers succinate 4-24 tablet by ity o f XL 100 mg 00:00: mouth [place] 00 the Medical tablet morning. Branch Miscellaneo 2022-0 Yes [id number] Blood U nivers us Medical 4-24 pressure ity o f Supply 00:00: check [place] (BLOOD 00 twice a Medical PRESSURE day and as Branc h CUFF) Misc needed. Miscellaneo 0 Yes [id number] Blood U nivers us Medical 4-24 pressure ity o f Supply 00:00: check [place] (BLOOD 00 twice a Medical PRESSURE day and as Branc h CUFF) Misc needed. Miscellaneo Yes [id number] Blood U nivers us Medical 4-24 pressure ity o f Supply 00:00: check [place] (BLOOD 00 twice a Medical PRESSURE day and as Branc h CUFF) Misc needed. Miscellaneo Yes [id number] Blood U nivers us Medical 4-24 pressure ity o f Supply 00:00: check [place] (BLOOD 00 twice a Medical PRESSURE day and as Branc h CUFF) Misc needed. Miscellaneo Yes [id number] Blood U nivers us Medical 4-24 pressure ity o f Supply 00:00: check [place] (BLOOD 00 twice a Medical PRESSURE day and as Branc h CUFF) Misc needed. Miscellaneo Yes [id number] Blood U nivers us Medical 4-24 pressure ity o f Supply 00:00: check [place] (BLOOD 00 twice a Medical PRESSURE day and as Branc h CUFF) Misc needed. Miscellaneo Yes [id number] Blood U nivers us Medical 4-24 pressure ity o f Supply 00:00: check [place] (BLOOD 00 twice a Medical PRESSURE day and as Branc h CUFF) Misc needed. Miscellaneo Yes [id number] Blood U nivers us Medical 4-24 pressure ity o f Supply 00:00: check [place] (BLOOD 00 twice a Medical PRESSURE day and as Branc h CUFF) Misc needed. Miscellaneo Yes [id number] Blood U nivers us Medical 4-24 pressure ity o f Supply 00:00: check [place] (BLOOD 00 twice a Medical PRESSURE day and as Branc h CUFF) Misc needed. Miscellaneo Yes [id number] Blood U nivers us Medical 4-24 pressure ity o f Supply 00:00: check [place] (BLOOD 00 twice a Medical PRESSURE day and as Branc h CUFF) Misc needed. Miscellaneo 2022-0 Yes [id number] Blood U nivers us Medical 4-24 pressure ity o f Supply 00:00: check [place] (BLOOD 00 twice a Medical PRESSURE day and as Branc h CUFF) Misc needed. Miscellaneo 2022-0 Yes [id number] Blood U nivers us Medical 4-24 pressure ity o f Supply 00:00: check [place] (BLOOD 00 twice a Medical PRESSURE day and as Branc h CUFF) Misc needed. Miscellaneo 0 Yes [id number] Blood U nivers us Medical 4-24 pressure ity o f Supply 00:00: check [place] (BLOOD 00 twice a Medical PRESSURE day and as Branc h CUFF) Misc needed. Miscellaneo 2022-0 Yes [id number] Blood U nivers us Medical 4-24 pressure ity o f Supply 00:00: check [place] (BLOOD 00 twice a Medical PRESSURE day and as Branc h CUFF) Misc needed. metoprolol 2022-0 Yes [id number] 100mg Take 1 U nivers succinate 4-24 tablet by ity o f XL 100 mg 00:00: mouth [place] 24 [place] 00 the Medical tablet morning. Branch Miscellaneo 2022-0 Yes [id number] Blood U nivers us Medical 4-24 pressure ity o f Supply 00:00: check [place] (BLOOD 00 twice a Medical PRESSURE day and as Branc h CUFF) Misc needed. metoprolol 2022-0 Yes [id number] 100mg Take 1 U nivers succinate 4-24 tablet by ity o f XL 100 mg 00:00: mouth [place] 24 [place] 00 the Medical tablet morning. Branch Miscellaneo 2022-0 Yes [id number] Blood U nivers us Medical 4-24 pressure ity o f Supply 00:00: check [place] (BLOOD 00 twice a Medical PRESSURE day and as Branc h CUFF) Misc needed. metoprolol 2022-0 Yes [id number] 100mg Take 1 U nivers succinate 4-24 tablet by ity o f XL 100 mg 00:00: mouth [place] 24 [place] 00 the Medical tablet morning. Branch Miscellaneo 2022-0 Yes [id number] Blood U nivers us Medical 4-24 pressure ity o f Supply 00:00: check [place] (BLOOD 00 twice a Medical PRESSURE day and as Branc h CUFF) Misc needed. metoprolol 2022-0 Yes [id number] 100mg Take 1 U nivers succinate 4-24 tablet by ity o f XL 100 mg 00:00: mouth [place] 00 the Medical tablet morning. Branch Miscellaneo 2022-0 Yes [id number] Blood U nivers us Medical 4-24 pressure ity o f Supply 00:00: check [place] (BLOOD 00 twice a Medical PRESSURE day and as Branc h CUFF) Misc needed. metoprolol 2022-0 Yes [id number] 100mg Take 1 [facility] succinate 4-24 tablet by [facility] XL 100 mg 00:00: [place] 00 the Medical tablet morning. Branch Miscellaneo 2022-0 Yes [id number] Blood [facility] 4-24 pressure [facility] o f Supply 00:00: check [place] (BLOOD 00 twice a Medical PRESSURE day and as Branc h CUFF) Misc needed. metoprolol 2022-0 Yes [id number] 100mg Take 1 [facility] succinate 4-24 tablet by [facility] o f XL 100 mg 00:00: mouth [place] 24 [place] 00 the Medical tablet morning. Branch Miscellaneo 2022-0 Yes [id number] Blood [facility] 4-24 pressure it[facility] o f Supply 00:00: check [place] (BLOOD 00 twice a Medical PRESSURE day and as Branc h CUFF) Misc needed. metoprolol 2022-0 Yes [id number] 100mg Take 1 [facility] succinate 4-24 tablet by [facility] o f XL 100 mg 00:00: mouth [place] 00 the Medical tablet morning. Branch Miscellaneo 2022-0 Yes [id number] Blood [facility] 4-24 pressure ity o f Supply 00:00: check [place] (BLOOD 00 twice a Medical PRESSURE day and as Branc h CUFF) Misc needed. metoprolol 2022-0 Yes [id number] 100mg Take 1 [facility] succinate 4-24 tablet by [facility] o f XL 100 mg 00:00: mouth [place] 00 the Medical tablet morning. Branch Miscellaneo 2022-0 Yes [id number] Blood [facility] 4-24 pressure it[facility] o f Supply 00:00: check [place] (BLOOD 00 twice a Medical PRESSURE day and as Branc h CUFF) Misc needed. metoprolol 2022-0 Yes [id number] 100mg Take 1 [facility] succinate 4-24 tablet by [facility] o f XL 100 mg 00:00: mouth [place] 24 [place] 00 the Medical tablet morning. Branch Miscellaneo 2022-0 Yes [id number] Blood [facility] 4-24 pressure ity o f Supply 00:00: check [place] (BLOOD 00 twice a Medical PRESSURE day and as Branc h CUFF) Misc needed. metoprolol 2022-0 Yes [id number] 100mg Take 1 [facility] succinate 4-24 tablet by [facility] o f XL 100 mg 00:00: mouth [place] 24 [place] 00 the Medical tablet morning. Branch Miscellaneo 2022-0 Yes [id number] Blood [facility] 4-24 pressure ity o f Supply 00:00: check [place] (BLOOD 00 twice a Medical PRESSURE day and as Branc h CUFF) Misc needed. metoprolol 2022-0 Yes [id number] 100mg Take 1 [facility] succinate 4-24 tablet by [facility] o f XL 100 mg 00:00: mouth [place] 24 [place] 00 the Medical tablet morning. Branch Miscellaneo 2022-0 Yes [id number] Blood [facility] 4-24 pressure ity o f Supply 00:00: check [place] (BLOOD 00 twice a Medical PRESSURE day and as Branc h CUFF) Misc needed. metoprolol 2022-0 Yes [id number] 100mg Take 1 [facility] succinate 4-24 tablet by [facility] o f XL 100 mg 00:00: mouth [place] 00 the Medical tablet morning. Branch Miscellaneo 2022-0 Yes [id number] Blood [facility] 4-24 pressure ity o f Supply 00:00: check [place] (BLOOD 00 twice a Medical PRESSURE day and as Branc h CUFF) Misc needed. metoprolol 2022-0 Yes [id number] 100mg Take 1 [facility] succinate 4-24 tablet by [facility] o f XL 100 mg 00:00: [place] 00 the Medical tablet morning. Branch Miscellaneo 2022-0 Yes [id number] Blood [facility] 4-24 pressure ity o f Supply 00:00: check [place] (BLOOD 00 twice a Medical PRESSURE day and as Branc h CUFF) Misc needed. Miscellaneo 2022- No [id number] Blood [facility] 12-09 pressure ity of Supply 00:00: 00:00 check [place] (BLOOD 00 :00 twice a Medical PRESSURE day and as Branc h CUFF) Misc needed. Miscellaneo 2022- No [id number] Blood [facility] 12-09 pressure ity of Supply 00:00: 00:00 check [place] (BLOOD 00 :00 twice a Medical PRESSURE day and as Branc h CUFF) Misc needed. metoprolol 2022- No [id number] 100mg Take 1 [facility] succinate 12-09 tablet by ity of XL 100 mg 00:00: 00:00 mouth in [place] 24 hr 00 :00 the Medical tablet morning. Branch metoprolol 2022- No [id number] 100mg Take 1 [facility] succinate 12-09 tablet by ity of XL 100 mg 00:00: 00:00 mouth in [place] 24 hr 00 :00 the Medical tablet morning. Branch doxepin 10 Yes [id number] 10mg Take 1 [facility] mg capsule 4-05 capsule by ity of 00:00: mouth at [place] [address] bedtime. Medical Branch doxepin 10 0 Yes [id number] 10mg Take 1 [facility] mg capsule 4-05 capsule by ity of 00:00: mouth at [place] [address] bedtime. Medical Branch doxepin 10 2022-0 Yes [id number] 10mg Take 1 [facility] mg capsule 4-05 capsule by it[facility] of 00:00: mouth at [place] [address] bedtime. Medical Branch doxepin 10 2022-0 Yes [id number] 10mg Take 1 [facility] mg capsule 4-05 capsule by ity of 00:00: mouth at [place] [address] bedtime. Medical Branch doxepin 10 2022-0 Yes [id number] 10mg Take 1 [facility] mg capsule 4-05 capsule by ity of 00:00: mouth at [place] [address] bedtime. Medical Branch doxepin 10 2022-0 Yes [id number] 10mg Take 1 [facility] mg capsule 4-05 capsule by ity of 00:00: mouth at [place] 00 bedtime. Medical Branch doxepin 10 Yes [id number] 10mg Take 1 [facility] mg capsule 4-05 capsule by ity of 00:00: mouth at [place] [address] bedtime. Medical Branch doxepin 10 Yes [id number] 10mg Take 1 [facility] mg capsule 4-05 capsule by ity of 00:00: mouth at [place] [address] bedtime. Medical Branch doxepin 10 0 Yes [id number] 10mg Take 1 [facility] mg capsule 4-05 capsule by ity of 00:00: mouth at [place] [address] bedtime. Medical Branch doxepin 10 Yes [id number] 10mg Take 1 [facility] mg capsule 4-05 capsule by ity of 00:00: mouth at [place] [address] bedtime. Medical Branch doxepin 10 Yes [id number] 10mg Take 1 [facility] mg capsule 4-05 capsule by ity of 00:00: mouth at [place] [address] bedtime. Medical Branch doxepin 10 Yes [id number] 10mg Take 1 [facility] mg capsule 4-05 capsule by ity of 00:00: mouth at [place] [address] bedtime. Medical Branch doxepin 10 Yes [id number] 10mg Take 1 [facility] mg capsule 4-05 capsule by ity of 00:00: mouth at [place] [address] bedtime. Medical Branch doxepin 10 Yes [id number] 10mg Take 1 [facility] mg capsule 4-05 capsule by ity of 00:00: mouth at [place] [address] bedtime. Medical Branch doxepin 10 Yes [id number] 10mg Take 1 [facility] mg capsule 4-05 capsule by ity of 00:00: mouth at [place] [address] bedtime. Medical Branch doxepin 10 Yes [id number] 10mg Take 1 [facility] mg capsule 4-05 capsule by ity of 00:00: mouth at [place] [address] bedtime. Medical Branch doxepin 10 0 Yes [id number] 10mg Take 1 [facility] mg capsule 4-05 capsule by ity of 00:00: mouth at [place] [address] bedtime. Medical Branch doxepin 10 Yes [id number] 10mg Take 1 [facility] mg capsule 4-05 capsule by ity of 00:00: mouth at [place] [address] bedtime. Medical Branch doxepin 10 Yes [id number] 10mg Take 1 [facility] mg capsule 4-05 capsule by ity of 00:00: mouth at [place] [address] bedtime. Medical Branch doxepin 10 2022-0 Yes [id number] 10mg Take 1 [facility] mg capsule 4-05 capsule by ity of 00:00: mouth at [place] [address] bedtime. Medical Branch doxepin 10 2022-0 Yes [id number] 10mg Take 1 [facility] mg capsule 4-05 capsule by ity of 00:00: mouth at [place] [address] bedtime. Medical Branch doxepin 10 2022-0 Yes [id number] 10mg Take 1 [facility] mg capsule 4-05 capsule by ity of 00:00: mouth at [place] [address] bedtime. Medical Branch doxepin 10 2022-0 Yes [id number] 10mg Take 1 [facility] mg capsule 4-05 capsule by ity of 00:00: mouth at [place] [address] bedtime. Medical Branch doxepin 10 2022-0 Yes [id number] 10mg Take 1 [facility] mg capsule 4-05 capsule by ity of 00:00: mouth at [place] [address] bedtime. Medical Branch lisinopriL 2022-0 Yes [id number] 20mg Take 1 [facility] 20 mg 4-05 tablet by ity of tablet 00:00: mouth in [place] the Medical morning. Branch doxepin 10 0 Yes [id number] 10mg Take 1 [facility] mg capsule 4-05 capsule by ity of 00:00: mouth at [place] [address] bedtime. Medical Branch lisinopriL 2022-0 Yes [id number] 20mg Take 1 [facility] 20 mg 4-05 tablet by ity of tablet 00:00: mouth in [place] the Medical morning. Branch doxepin 10 2022-0 Yes [id number] 10mg Take 1 [facility] mg capsule 4-05 capsule by ity of 00:00: mouth at [place] 00 bedtime. Medical Branch lisinopriL 2022-0 Yes [id number] 20mg Take 1 [facility] 20 mg 4-05 tablet by ity of tablet 00:00: mouth in [place] the Medical morning. Branch doxepin 10 2022-0 Yes [id number] 10mg Take 1 [facility] mg capsule 4-05 capsule by ity of 00:00: mouth at [place] [address] bedtime. Medical Branch lisinopriL 2022-0 Yes [id number] 20mg Take 1 [facility] 20 mg 4-05 tablet by ity of tablet 00:00: mouth in [place] the Medical morning. Branch doxepin 10 2022-0 Yes [id number] 10mg Take 1 [facility] mg capsule 4-05 capsule by ity of 00:00: mouth at [place] [address] bedtime. Medical Branch lisinopriL 2022-0 Yes [id number] 20mg Take 1 [facility] 20 mg 4-05 tablet by ity of tablet 00:00: mouth in [place] the Medical morning. Branch doxepin 10 2022-0 Yes [id number] 10mg Take 1 [facility] mg capsule 4-05 capsule by ity of 00:00: mouth at [place] [address] bedtime. Medical Branch lisinopriL 2022-0 Yes [id number] 20mg Take 1 [facility] 20 mg 4-05 tablet by ity of tablet 00:00: mouth in [place] the Medical morning. Branch doxepin 10 2022-0 Yes [id number] 10mg Take 1 [facility] mg capsule 4-05 capsule by ity of 00:00: mouth at [place] [address] bedtime. Medical Branch lisinopriL 2022-0 Yes [id number] 20mg Take 1 [facility] 20 mg 4-05 tablet by ity of tablet 00:00: mouth in [place] the Medical morning. Branch doxepin 10 2022-0 Yes [id number] 10mg Take 1 [facility] mg capsule 4-05 capsule by ity of 00:00: mouth at [place] [address] bedtime. Medical Branch lisinopriL 2022-0 Yes [id number] 20mg Take 1 [facility] 20 mg 4-05 tablet by ity of tablet 00:00: mouth in [place] the Medical morning. Branch doxepin 10 2022-0 Yes [id number] 10mg Take 1 [facility] mg capsule 4-05 capsule by ity of 00:00: mouth at [place] [address] bedtime. Medical Branch lisinopriL 2022-0 Yes [id number] 20mg Take 1 [facility] 20 mg 4-05 tablet by ity of tablet 00:00: mouth in [place] the Medical morning. Branch doxepin 10 2022-0 Yes [id number] 10mg Take 1 [facility] mg capsule 4-05 capsule by ity of 00:00: mouth at [place] [address] bedtime. Medical Branch lisinopriL 2022-0 Yes [id number] 20mg Take 1 [facility] 20 mg 4-05 tablet by ity of tablet 00:00: mouth in [place] 00 the Medical morning. Branch doxepin 10 2022-0 Yes [id number] 10mg Take 1 [facility] mg capsule 4-05 capsule by ity of 00:00: mouth at [place] [address] bedtime. Medical Branch lisinopriL 2022-0 Yes [id number] 20mg Take 1 [facility] 20 mg 4-05 tablet by ity of tablet 00:00: mouth in [place] 00 the Medical morning. Branch doxepin 10 2022-0 Yes [id number] 10mg Take 1 [facility] mg capsule 4-05 capsule by ity of 00:00: mouth at [place] 00 bedtime. Medical Branch lisinopriL 2022-0 Yes [id number] 20mg Take 1 [facility] 20 mg 4-05 tablet by ity of tablet 00:00: mouth in [place] 00 the Medical morning. Branch doxepin 10 2022-0 Yes [id number] 10mg Take 1 [facility] mg capsule 4-05 capsule by ity of 00:00: mouth at [place] [address] bedtime. Medical Branch lisinopriL 2022-0 Yes [id number] 20mg Take 1 [facility] 20 mg 4-05 tablet by ity of tablet 00:00: mouth in [place] 00 the Medical morning. Branch doxepin 10 0 Yes [id number] 10mg Take 1 [facility] mg capsule 4-05 capsule by ity of 00:00: mouth at [place] [address] bedtime. Medical Branch doxepin 10 2022-0 Yes [id number] 10mg Take 1 [facility] mg capsule 4-05 capsule by ity of 00:00: mouth at [place] [address] bedtime. Medical Branch doxepin 10 0 Yes [id number] 10mg Take 1 [facility] mg capsule 4-05 capsule by ity of 00:00: mouth at [place] 00 bedtime. Medical Branch lisinopriL 2022-0 2022- No [id number] 20mg Take 1 [facility] 20 mg 4-05 06-07 tablet by ity of tablet 00:00: 00:00 mouth in [place] 00 :00 the Medical morning. Branch lisinopriL 2022-0 3- No [id number] 20mg Take 1 [facility] 20 mg 4-05 06-07 tablet by ity of tablet 00:00: 00:00 mouth in [place] 00 :00 the Medical morning. Branch aspirin 81 2022-0 Yes [id number] 81mg Take 1 [facility] mg chewable 3-31 tablet by ity of tablet 00:00: mouth in [place] 00 the Medical morning. Branch varenicline 2022-0 Yes [id number] Take 1 [facility] 0.5 mg 3-31 tablet ity of tablet 00:00: once daily [place] 00 for 3 Medical days; then Branch increase to 1 tablet twice daily for 1 week; then continue 2 tablets twice daily ongoing. simvastatin 2022-0 Yes [id number] 20mg Take 1 [facility] 20 mg 3-31 tablet by ity of tablet 00:00: mouth at [place] 00 bedtime. Medical Branch aspirin 81 2022-0 Yes [id number] 81mg Take 1 [facility] mg chewable 3-31 tablet by ity of tablet 00:00: mouth in [place] 00 the Medical morning. Branch varenicline 2022-0 Yes [id number] Take 1 [facility] 0.5 mg 3-31 tablet ity of tablet 00:00: once daily [place] 00 for 3 Medical days; then Branch increase to 1 tablet twice daily for 1 week; then continue 2 tablets twice daily ongoing. simvastatin 2022-0 Yes [id number] 20mg Take 1 [facility] 20 mg 3-31 tablet by ity of tablet 00:00: mouth at [place] 00 bedtime. Medical Branch aspirin 81 2022-0 Yes [id number] 81mg Take 1 [facility] mg chewable 3-31 tablet by ity of tablet 00:00: mouth in [place] 00 the Medical morning. Branch varenicline 2022-0 Yes [id number] Take 1 [facility] 0.5 mg 3-31 tablet ity of tablet 00:00: once daily [place] 00 for 3 Medical days; then Branch increase to 1 tablet twice daily for 1 week; then continue 2 tablets twice daily ongoing. simvastatin 3-0 Yes [id number] 20mg Take 1 [facility] 20 mg 3-31 tablet by ity of tablet 00:00: mouth at [place] [address] bedtime. Medical Branch aspirin 81 2022-0 Yes [id number] 81mg Take 1 [facility] mg chewable 3-31 tablet by ity of tablet 00:00: mouth in [place] 00 the Medical morning. Branch varenicline 2022-0 Yes [id number] Take 1 [facility] 0.5 mg 3-31 tablet ity of tablet 00:00: once daily [place] 00 for 3 Medical days; then Branch increase to 1 tablet twice daily for 1 week; then continue 2 tablets twice daily ongoing. simvastatin 3-0 Yes [id number] 20mg Take 1 [facility] 20 mg 3-31 tablet by ity of tablet 00:00: mouth at [place] 00 bedtime. Medical Branch aspirin 81 2022-0 Yes [id number] 81mg Take 1 [facility] mg chewable 3-31 tablet by ity of tablet 00:00: mouth in [place] 00 the Medical morning. Branch varenicline 2022-0 Yes [id number] Take 1 [facility] 0.5 mg 3-31 tablet ity of tablet 00:00: once daily [place] 00 for 3 Medical days; then Branch increase to 1 tablet twice daily for 1 week; then continue 2 tablets twice daily ongoing. simvastatin 2022-0 Yes [id number] 20mg Take 1 [facility] 20 mg 3-31 tablet by ity of tablet 00:00: mouth at [place] 00 bedtime. Medical Branch aspirin 81 2022-0 Yes [id number] 81mg Take 1 [facility] mg chewable 3-31 tablet by ity of tablet 00:00: mouth in [place] 00 the Medical morning. Branch varenicline 2022-0 Yes [id number] Take 1 [facility] 0.5 mg 3-31 tablet ity of tablet 00:00: once daily [place] 00 for 3 Medical days; then Branch increase to 1 tablet twice daily for 1 week; then continue 2 tablets twice daily ongoing. simvastatin 2022-0 Yes [id number] 20mg Take 1 [facility] 20 mg 3-31 tablet by ity of tablet 00:00: mouth at [place] 00 bedtime. Medical Branch aspirin 81 2022-0 Yes [id number] 81mg Take 1 [facility] mg chewable 3-31 tablet by ity of tablet 00:00: mouth in [place] 00 the Medical morning. Branch varenicline 3-0 Yes [id number] Take 1 [facility] 0.5 mg 3-31 tablet ity of tablet 00:00: once daily [place] 00 for 3 Medical days; then Branch increase to 1 tablet twice daily for 1 week; then continue 2 tablets twice daily ongoing. simvastatin 3-0 Yes [id number] 20mg Take 1 [facility] 20 mg 3-31 tablet by ity of tablet 00:00: mouth at [place] 00 bedtime. Medical Branch aspirin 81 2022-0 Yes [id number] 81mg Take 1 [facility] mg chewable 3-31 tablet by ity of tablet 00:00: mouth in [place] 00 the Medical morning. Branch varenicline 2022-0 Yes [id number] Take 1 [facility] 0.5 mg 3-31 tablet ity of tablet 00:00: once daily [place] 00 for 3 Medical days; then Branch increase to 1 tablet twice daily for 1 week; then continue 2 tablets twice daily ongoing. simvastatin 2022-0 Yes [id number] 20mg Take 1 [facility] 20 mg 3-31 tablet by ity of tablet 00:00: mouth at [place] 00 bedtime. Medical Branch aspirin 81 2022-0 Yes [id number] 81mg Take 1 [facility] mg chewable 3-31 tablet by ity of tablet 00:00: mouth in [place] 00 the Medical morning. Branch varenicline 2022-0 Yes [id number] Take 1 [facility] 0.5 mg 3-31 tablet ity of tablet 00:00: once daily [place] 00 for 3 Medical days; then Branch increase to 1 tablet twice daily for 1 week; then continue 2 tablets twice daily ongoing. simvastatin 2022-0 Yes [id number] 20mg Take 1 [facility] 20 mg 3-31 tablet by ity of tablet 00:00: mouth at [place] [address] bedtime. Medical Branch aspirin 81 2022-0 Yes [id number] 81mg Take 1 [facility] mg chewable 3-31 tablet by ity of tablet 00:00: mouth in [place] 00 the Medical morning. Branch simvastatin 3-0 Yes [id number] 20mg Take 1 [facility] 20 mg 3-31 tablet by ity of tablet 00:00: mouth at [place] [address] bedtime. Medical Branch aspirin 81 2022-0 Yes [id number] 81mg Take 1 [facility] mg chewable 3-31 tablet by ity of tablet 00:00: mouth in [place] 00 the Medical morning. Branch aspirin 81 3-0 Yes [id number] 81mg Take 1 [facility] mg chewable 3-31 tablet by ity of tablet 00:00: mouth in [place] 00 the Medical morning. Branch aspirin 81 3-0 Yes [id number] 81mg Take 1 [facility] mg chewable 3-31 tablet by ity of tablet 00:00: mouth in [place] 00 the Medical morning. Branch aspirin 81 2022-0 Yes [id number] 81mg Take 1 [facility] mg chewable 3-31 tablet by ity of tablet 00:00: mouth in [place] the Medical morning. Branch aspirin 81 3-0 Yes [id number] 81mg Take 1 [facility] mg chewable 3-31 tablet by ity of tablet 00:00: mouth in [place] the Medical morning. Branch aspirin 81 3-0 Yes [id number] 81mg Take 1 [facility] mg chewable 3-31 tablet by ity of tablet 00:00: mouth in [place] the Medical morning. Branch aspirin 81 2022-0 Yes [id number] 81mg Take 1 [facility] mg chewable 3-31 tablet by ity of tablet 00:00: mouth in [place] the Medical morning. Branch aspirin 81 3-0 Yes [id number] 81mg Take 1 [facility] mg chewable 3-31 tablet by ity of tablet 00:00: mouth in [place] the Medical morning. Branch aspirin 81 3-0 Yes [id number] 81mg Take 1 [facility] mg chewable 3-31 tablet by ity of tablet 00:00: mouth in [place] the Medical morning. Branch aspirin 81 2022-0 Yes [id number] 81mg Take 1 [facility] mg chewable 3-31 tablet by it[facility] of tablet 00:00: mouth in [place] the Medical morning. Branch aspirin 81 2022-0 Yes [id number] 81mg Take 1 [facility] mg chewable 3-31 tablet by ity of tablet 00:00: mouth in [place] the Medical morning. Branch aspirin 81 2022-0 Yes [id number] 81mg Take 1 [facility] mg chewable 3-31 tablet by it[facility] of tablet 00:00: mouth in [place] the Medical morning. Branch aspirin 81 2022-0 Yes [id number] 81mg Take 1 [facility] mg chewable 3-31 tablet by it[facility] of tablet 00:00: mouth in [place] the Medical morning. Branch aspirin 81 3-0 Yes [id number] 81mg Take 1 [facility] mg chewable 3-31 tablet by ity of tablet 00:00: mouth in [place] 00 the Medical morning. Branch aspirin 81 3-0 Yes [id number] 81mg Take 1 [facility] mg chewable 3-31 tablet by ity of tablet 00:00: mouth in [place] 00 the Medical morning. Branch aspirin 81 2022-0 Yes [id number] 81mg Take 1 [facility] mg chewable 3-31 tablet by it[facility] of tablet 00:00: mouth in [place] 00 the Medical morning. Branch aspirin 81 3-0 Yes [id number] 81mg Take 1 [facility] mg chewable 3-31 tablet by ity of tablet 00:00: mouth in [place] 00 the Medical morning. Branch aspirin 81 3-0 Yes [id number] 81mg Take 1 [facility] mg chewable 3-31 tablet by ity of tablet 00:00: mouth in [place] 00 the Medical morning. Branch aspirin 81 3-0 Yes [id number] 81mg Take 1 [facility] mg chewable 3-31 tablet by ity of tablet 00:00: mouth in [place] 00 the Medical morning. Branch aspirin 81 3-0 Yes [id number] 81mg Take 1 [facility] mg chewable 3-31 tablet by ity of tablet 00:00: mouth in [place] 00 the Medical morning. Branch aspirin 81 3-0 Yes [id number] 81mg Take 1 [facility] mg chewable 3-31 tablet by ity of tablet 00:00: mouth in [place] the Medical morning. Branch aspirin 81 2022-0 Yes [id number] 81mg Take 1 [facility] mg chewable 3-31 tablet by ity of tablet 00:00: mouth in [place] 00 the Medical morning. Branch aspirin 81 2022-0 Yes [id number] 81mg Take 1 [facility] mg chewable 3-31 tablet by it[facility] of tablet 00:00: mouth in [place] 00 the Medical morning. Branch aspirin 81 3-0 Yes [id number] 81mg Take 1 [facility] mg chewable 3-31 tablet by it[facility] of tablet 00:00: mouth in [place] 00 the Medical morning. Branch aspirin 81 3-0 Yes [id number] 81mg Take 1 [facility] mg chewable 3-31 tablet by ity of tablet 00:00: mouth in [place] 00 the Medical morning. Branch aspirin 81 3-0 Yes [id number] 81mg Take 1 [facility] mg chewable 3-31 tablet by ity of tablet 00:00: mouth in [place] 00 the Medical morning. Branch aspirin 81 3-0 Yes [id number] 81mg Take 1 [facility] mg chewable 3-31 tablet by ity of tablet 00:00: mouth in [place] 00 the Medical morning. Branch simvastatin 2023-0 Yes [id number] 20mg Take 1 [facility] 20 mg 3-31 tablet by it[facility] of tablet 00:00: mouth at [place] 00 bedtime. Medical Branch aspirin 81 2022-0 Yes [id number] 81mg Take 1 [facility] mg chewable 3-31 tablet by it[facility] of tablet 00:00: mouth in [place] 00 the Medical morning. Branch simvastatin 2022-0 Yes [id number] 20mg Take 1 [facility] 20 mg 3-31 tablet by it[facility] of tablet 00:00: mouth at [place] 00 bedtime. Medical Branch aspirin 81 2022-0 Yes [id number] 81mg Take 1 [facility] mg chewable 3-31 tablet by [facility] of tablet 00:00: mouth in [place] 00 the Medical morning. Branch varenicline 2022-0 Yes [id number] Take 1 [facility] 0.5 mg 3-31 tablet ity of tablet 00:00: once daily [place] 00 for 3 Medical days; then Branch increase to 1 tablet twice daily for 1 week; then continue 2 tablets twice daily ongoing. simvastatin 2022-0 Yes [id number] 20mg Take 1 [facility] 20 mg 3-31 tablet by [facility] of tablet 00:00: mouth at [place] 00 bedtime. Medical Branch aspirin 81 2022-0 Yes [id number] 81mg Take 1 [facility] mg chewable 3-31 tablet by [facility] of tablet 00:00: mouth in [place] 00 the Medical morning. Branch varenicline 2022-0 Yes [id number] Take 1 [facility] 0.5 mg 3-31 tablet ity of tablet 00:00: once daily [place] 00 for 3 Medical days; then Branch increase to 1 tablet twice daily for 1 week; then continue 2 tablets twice daily ongoing. simvastatin 2022-0 Yes [id number] 20mg Take 1 [facility] 20 mg 3-31 tablet by it[facility] of tablet 00:00: mouth at [place] 00 bedtime. Medical Branch aspirin 81 2022-0 Yes [id number] 81mg Take 1 [facility] mg chewable 3-31 tablet by ity of tablet 00:00: mouth in [place] 00 the Medical morning. Branch varenicline 2022-0 Yes [id number] Take 1 [facility] 0.5 mg 3-31 tablet ity of tablet 00:00: once daily [place] 00 for 3 Medical days; then Branch increase to 1 tablet twice daily for 1 week; then continue 2 tablets twice daily ongoing. simvastatin 2022-0 Yes [id number] 20mg Take 1 [facility] 20 mg 3-31 tablet by ity of tablet 00:00: mouth at [place] 00 bedtime. Medical Branch aspirin 81 0 Yes [id number] 81mg Take 1 [facility] mg chewable 3-31 tablet by [facility] of tablet 00:00: mouth in [place] 00 the Medical morning. Branch varenicline Yes [id number] Take 1 [facility] 0.5 mg 3-31 tablet ity of tablet 00:00: once daily [place] 00 for 3 Medical days; then Branch increase to 1 tablet twice daily for 1 week; then continue 2 tablets twice daily ongoing. simvastatin Yes [id number] 20mg Take 1 [facility] 20 mg 3-31 tablet by ity of tablet 00:00: mouth at [place] 00 bedtime. Medical Branch simvastatin 2022- No [id number] 20mg Take 1 [facility] 20 mg 3-31 06-07 tablet by it[facility] of tablet 00:00: 00:00 mouth at [place] 00 :00 bedtime. Medical Branch simvastatin 2022- No [id number] 20mg Take 1 [facility] 20 mg 3-31 06-07 tablet by ity of tablet 00:00: 00:00 mouth at [place] 00 :00 bedtime. Medical Branch varenicline 2022- No [id number] Take 1 [facility] 0.5 mg 3-31 06-06 tablet ity of tablet 00:00: 00:00 once daily [place] 00 :00 for 3 Medical days; then Branch increase to 1 tablet twice daily for 1 week; then continue 2 tablets twice daily ongoing. varenicline 2022- No [id number] Take 1 [facility] 0.5 mg 3-31 06-06 tablet ity of tablet 00:00: 00:00 once daily [place] 00 :00 for 3 Medical days; then Branch increase to 1 tablet twice daily for 1 week; then continue 2 tablets twice daily ongoing. peg-electro 2022-0 2022- No 4000mL Take 4,000 [facility] lyte soln 3-27 03-28 mL by ity of 236-22.74-6 00:00: 04:59 mouth once [place] .74 -5.86 00 :00 now for 1 Medic al gram dose. Branch solution ergocalcife 0 Yes [id number] Take 1 [facility] rol, 3-14 capsule by ity of vitamin d2, 00:00: mouth [place] (VITAMIN 00 weekly. Medical D2) 1,250 Branch mcg (50,000 unit) capsule ergocalcife 2023-0 Yes [id number] Take 1 [facility] rol, 3-14 capsule by ity of vitamin d2, 00:00: mouth [place] (VITAMIN 00 weekly. Medical D2) 1,250 Branch mcg (50,000 unit) capsule ergocalcife 2023-0 Yes [id number] Take 1 [facility] rol, 3-14 capsule by ity of vitamin d2, 00:00: mouth [place] (VITAMIN 00 weekly. Medical D2) 1,250 Branch mcg (50,000 unit) capsule ergocalcife 2023-0 Yes [id number] Take 1 [facility] rol, 3-14 capsule by ity of vitamin d2, 00:00: mouth [place] (VITAMIN 00 weekly. Medical D2) 1,250 Branch mcg (50,000 unit) capsule ergocalcife 2023-0 Yes [id number] Take 1 [facility] rol, 3-14 capsule by ity of vitamin d2, 00:00: mouth [place] (VITAMIN 00 weekly. Medical D2) 1,250 Branch mcg (50,000 unit) capsule ergocalcife 2023-0 Yes [id number] Take 1 [facility] rol, 3-14 capsule by ity of vitamin d2, 00:00: mouth [place] (VITAMIN 00 weekly. Medical D2) 1,250 Branch mcg (50,000 unit) capsule ergocalcife 2023-0 Yes [id number] Take 1 [facility] rol, 3-14 capsule by ity of vitamin d2, 00:00: mouth [place] (VITAMIN 00 weekly. Medical D2) 1,250 Branch mcg (50,000 unit) capsule ergocalcife 2023-0 Yes [id number] Take 1 [facility] rol, 3-14 capsule by ity of vitamin d2, 00:00: mouth [place] (VITAMIN 00 weekly. Medical D2) 1,250 Branch mcg (50,000 unit) capsule ergocalcife 2023-0 Yes [id number] Take 1 [facility] rol, 3-14 capsule by ity of vitamin d2, 00:00: mouth [place] (VITAMIN 00 weekly. Medical D2) 1,250 Branch mcg (50,000 unit) capsule ergocalcife 2023-0 Yes [id number] Take 1 [facility] rol, 3-14 capsule by ity of vitamin d2, 00:00: mouth [place] (VITAMIN 00 weekly. Medical D2) 1,250 Branch mcg (50,000 unit) capsule ergocalcife 2023-0 Yes [id number] Take 1 [facility] rol, 3-14 capsule by ity of vitamin d2, 00:00: mouth [place] (VITAMIN 00 weekly. Medical D2) 1,250 Branch mcg (50,000 unit) capsule ergocalcife 2023-0 Yes [id number] Take 1 [facility] rol, 3-14 capsule by ity of vitamin d2, 00:00: mouth [place] (VITAMIN 00 weekly. Medical D2) 1,250 Branch mcg (50,000 unit) capsule ergocalcife 2023-0 Yes [id number] Take 1 [facility] rol, 3-14 capsule by ity of vitamin d2, 00:00: mouth [place] (VITAMIN 00 weekly. Medical D2) 1,250 Branch mcg (50,000 unit) capsule ergocalcife 2023-0 Yes [id number] Take 1 [facility] rol, 3-14 capsule by ity of vitamin d2, 00:00: mouth [place] (VITAMIN 00 weekly. Medical D2) 1,250 Branch mcg (50,000 unit) capsule ergocalcife 2023-0 Yes [id number] Take 1 [facility] rol, 3-14 capsule by ity of vitamin d2, 00:00: mouth [place] (VITAMIN 00 weekly. Medical D2) 1,250 Branch mcg (50,000 unit) capsule ergocalcife 2023-0 Yes [id number] Take 1 [facility] rol, 3-14 capsule by ity of vitamin d2, 00:00: mouth [place] (VITAMIN 00 weekly. Medical D2) 1,250 Branch mcg (50,000 unit) capsule ergocalcife 2023-0 Yes [id number] Take 1 [facility] rol, 3-14 capsule by ity of vitamin d2, 00:00: mouth [place] (VITAMIN 00 weekly. Medical D2) 1,250 Branch mcg (50,000 unit) capsule ergocalcife 2023-0 Yes [id number] Take 1 [facility] rol, 3-14 capsule by ity of vitamin d2, 00:00: mouth [place] (VITAMIN 00 weekly. Medical D2) 1,250 Branch mcg (50,000 unit) capsule ergocalcife 2023-0 Yes [id number] Take 1 [facility] rol, 3-14 capsule by ity of vitamin d2, 00:00: mouth [place] (VITAMIN 00 weekly. Medical D2) 1,250 Branch mcg (50,000 unit) capsule ergocalcife 2023-0 Yes [id number] Take 1 [facility] rol, 3-14 capsule by ity of vitamin d2, 00:00: mouth [place] (VITAMIN 00 weekly. Medical D2) 1,250 Branch mcg (50,000 unit) capsule ergocalcife 2023-0 Yes [id number] Take 1 [facility] rol, 3-14 capsule by ity of vitamin d2, 00:00: mouth [place] (VITAMIN 00 weekly. Medical D2) 1,250 Branch mcg (50,000 unit) capsule ergocalcife 2023-0 Yes [id number] Take 1 [facility] rol, 3-14 capsule by ity of vitamin d2, 00:00: mouth [place] (VITAMIN 00 weekly. Medical D2) 1,250 Branch mcg (50,000 unit) capsule ergocalcife 2023-0 Yes [id number] Take 1 [facility] rol, 3-14 capsule by ity of vitamin d2, 00:00: mouth [place] (VITAMIN 00 weekly. Medical D2) 1,250 Branch mcg (50,000 unit) capsule ergocalcife 2023-0 Yes [id number] Take 1 [facility] rol, 3-14 capsule by ity of vitamin d2, 00:00: mouth [place] (VITAMIN 00 weekly. Medical D2) 1,250 Branch mcg (50,000 unit) capsule ergocalcife 2023-0 Yes [id number] Take 1 [facility] rol, 3-14 capsule by ity of vitamin d2, 00:00: mouth [place] (VITAMIN 00 weekly. Medical D2) 1,250 Branch mcg (50,000 unit) capsule ergocalcife 2023-0 Yes [id number] Take 1 [facility] rol, 3-14 capsule by ity of vitamin d2, 00:00: mouth [place] (VITAMIN 00 weekly. Medical D2) 1,250 Branch mcg (50,000 unit) capsule ergocalcife 2023-0 Yes [id number] Take 1 [facility] rol, 3-14 capsule by ity of vitamin d2, 00:00: mouth [place] (VITAMIN 00 weekly. Medical D2) 1,250 Branch mcg (50,000 unit) capsule ergocalcife 2023-0 Yes [id number] Take 1 [facility] rol, 3-14 capsule by ity of vitamin d2, 00:00: mouth [place] (VITAMIN 00 weekly. Medical D2) 1,250 Branch mcg (50,000 unit) capsule ergocalcife 2023-0 Yes [id number] Take 1 [facility] rol, 3-14 capsule by ity of vitamin d2, 00:00: mouth [place] (VITAMIN 00 weekly. Medical D2) 1,250 Branch mcg (50,000 unit) capsule ergocalcife 2023-0 Yes [id number] Take 1 [facility] rol, 3-14 capsule by ity of vitamin d2, 00:00: mouth [place] (VITAMIN 00 weekly. Medical D2) 1,250 Branch mcg (50,000 unit) capsule ergocalcife 2023-0 Yes [id number] Take 1 [facility] rol, 3-14 capsule by ity of vitamin d2, 00:00: mouth [place] (VITAMIN 00 weekly. Medical D2) 1,250 Branch mcg (50,000 unit) capsule ergocalcife 2023-0 Yes [id number] Take 1 [facility] rol, 3-14 capsule by ity of vitamin d2, 00:00: [facility] (VITAMIN 00 weekly. Medical D2) 1,250 Branch mcg (50,000 unit) capsule ergocalcife 2023-0 Yes [id number] Take 1 [facility] rol, 3-14 capsule by ity of vitamin d2, 00:00: [facility] (VITAMIN 00 weekly. Medical D2) 1,250 Branch mcg (50,000 unit) capsule ergocalcife 2023-0 Yes [id number] Take 1 [facility] rol, 3-14 capsule by ity of vitamin d2, 00:00: mouth [place] (VITAMIN 00 weekly. Medical D2) 1,250 Branch mcg (50,000 unit) capsule ergocalcife 2023-0 Yes [id number] Take 1 [facility] rol, 3-14 capsule by ity of vitamin d2, 00:00: mouth [place] (VITAMIN 00 weekly. Medical D2) 1,250 Branch mcg (50,000 unit) capsule ergocalcife 2023-0 Yes [id number] Take 1 [facility] rol, 3-14 capsule by ity of vitamin d2, 00:00: mouth [place] (VITAMIN 00 weekly. Medical D2) 1,250 Branch mcg (50,000 unit) capsule ergocalcife 2023-0 Yes [id number] Take 1 [facility] rol, 3-14 capsule by ity of vitamin d2, 00:00: mouth [place] (VITAMIN 00 weekly. Medical D2) 1,250 Branch mcg (50,000 unit) capsule ergocalcife 2023-0 Yes [id number] Take 1 [facility] rol, 3-14 capsule by ity of vitamin d2, 00:00: mouth [place] (VITAMIN 00 weekly. Medical D2) 1,250 Branch mcg (50,000 unit) capsule ergocalcife 2023-0 Yes [id number] Take 1 [facility] rol, 3-14 capsule by ity of vitamin d2, 00:00: mouth [place] (VITAMIN 00 weekly. Medical D2) 1,250 Branch mcg (50,000 unit) capsule ergocalcife 2023-0 Yes [id number] Take 1 [facility] rol, 3-14 capsule by ity of vitamin d2, 00:00: mouth [place] (VITAMIN 00 weekly. Medical D2) 1,250 Branch mcg (50,000 unit) capsule ergocalcife 2023-0 Yes [id number] Take 1 [facility] rol, 3-14 capsule by ity of vitamin d2, 00:00: mouth [place] (VITAMIN 00 weekly. Medical D2) 1,250 Branch mcg (50,000 unit) capsule ergocalcife 2023-0 Yes [id number] Take 1 [facility] rol, 3-14 capsule by ity of vitamin d2, 00:00: mouth [place] (VITAMIN 00 weekly. Medical D2) 1,250 Branch mcg (50,000 unit) capsule ergocalcife 2023-0 Yes [id number] Take 1 [facility] rol, 3-14 capsule by ity of vitamin d2, 00:00: mouth [place] (VITAMIN 00 weekly. Medical D2) 1,250 Branch mcg (50,000 unit) capsule ergocalcife 2023-0 Yes [id number] Take 1 [facility] rol, 3-14 capsule by ity of vitamin d2, 00:00: mouth [place] (VITAMIN 00 weekly. Medical D2) 1,250 Branch mcg (50,000 unit) capsule ergocalcife 2023-0 Yes [id number] Take 1 [facility] rol, 3-14 capsule by ity of vitamin d2, 00:00: mouth [place] (VITAMIN 00 weekly. Medical D2) 1,250 Branch mcg (50,000 unit) capsule ergocalcife 3-0 Yes [id number] Take 1 [facility] rol, 3-14 capsule by ity of vitamin d2, 00:00: mouth [place] (VITAMIN 00 weekly. Medical D2) 1,250 Branch mcg (50,000 unit) capsule ergocalcife 2023-0 Yes [id number] Take 1 [facility] rol, 3-14 capsule by ity of vitamin d2, 00:00: mouth [place] (VITAMIN 00 weekly. Medical D2) 1,250 Branch mcg (50,000 unit) capsule ergocalcife 3-0 Yes [id number] Take 1 [facility] rol, 3-14 capsule by ity of vitamin d2, 00:00: mouth [place] (VITAMIN 00 weekly. Medical D2) 1,250 Branch mcg (50,000 unit) capsule ergocalcife 3-0 Yes [id number] Take 1 [facility] rol, 3-14 capsule by ity of vitamin d2, 00:00: mouth [place] (VITAMIN 00 weekly. Medical D2) 1,250 Branch mcg (50,000 unit) capsule ergocalcife 3-0 Yes [id number] Take 1 [facility] rol, 3-14 capsule by ity of vitamin d2, 00:00: mouth [place] (VITAMIN 00 weekly. Medical D2) 1,250 Branch mcg (50,000 unit) capsule ergocalcife 3-0 Yes [id number] Take 1 [facility] rol, 3-14 capsule by ity of vitamin d2, 00:00: mouth [place] (VITAMIN 00 weekly. Medical D2) 1,250 Branch mcg (50,000 unit) capsule cloNIDine 2022- No [id number] .2mg Uni vers (CATAPRES) 10-28 ity of tablet 0.2 19:15: 18:30 [place] mg 00 :00 Medical Branch cloNIDine 2022-0 2022- No [id number] .2mg 0.2 mg, Univers (CATAPRES) 10-28 Oral, ity of tablet 0.2 19:15: 18:30 ONCE, 1 [place] mg 00 :00 dose, On Medical Mon Branch 10/28/22 at 1415, Routine cloNIDine 0 2022- No [id number] .2mg Uni vers (CATAPRES) 10-28 ity of tablet 0.2 19:15: 18:30 [place] mg 00 :00 Medical Branch cloNIDine 2022-0 2022- No [id number] .2mg 0.2 mg, Univers (CATAPRES) 10-28 Oral, ity of tablet 0.2 19:15: 18:30 ONCE, 1 [place] mg 00 :00 dose, On Medical Mon Branch 10/28/22 at 1415, Routine ALPRAZolam 2022-0 Yes 2mg Take 1 Un[facility] rs 2 mg tablet 3-13 tablet by ity of 13:07: mouth 3 [place] 21 (three) Medical times Branch daily as needed for Anxiety. ALPRAZolam 2022-0 Yes 2mg Take 1 Unive rs 2 mg tablet 3-13 tablet by ity of 13:07: mouth 3 [place] 21 (three) Medical times Branch daily as needed for Anxiety. ALPRAZolam 2022-0 Yes 2mg Take 1 Unive rs 2 mg tablet 3-13 tablet by ity of 13:07: mouth 3 [place] 21 (three) Medical times Branch daily as needed for Anxiety. ALPRAZolam 3-0 Yes 2mg Take 1 [facility] rs 2 mg tablet 3-13 tablet by ity of 13:07: mouth 3 [place] 21 (three) Medical times Branch daily as needed for Anxiety. ALPRAZolam 3-0 Yes 2mg Take 1 [facility] rs 2 mg tablet 3-13 tablet by ity of 13:07: mouth 3 [place] 21 (three) Medical times Branch daily as needed for Anxiety. ALPRAZolam 3-0 Yes 2mg Take 1 Unive rs 2 mg tablet 3-13 tablet by ity of 13:07: mouth 3 [place] 21 (three) Medical times Branch daily as needed for Anxiety. ALPRAZolam 2023-0 Yes 2mg Take 1 Un[facility] rs 2 mg tablet 3-13 tablet by ity of 13:07: mouth 3 [place] 21 (three) Medical times Branch daily as needed for Anxiety. ALPRAZolam 3-0 Yes 2mg Take 1 Un[facility] rs 2 mg tablet 3-13 tablet by ity of 13:07: mouth 3 [place] 21 (three) Medical times Branch daily as needed for Anxiety. ALPRAZolam 2023-0 Yes 2mg Take 1 Un[facility] rs 2 mg tablet 3-13 tablet by ity of 13:07: mouth 3 [place] 21 (three) Medical times Branch daily as needed for Anxiety. ALPRAZolam 2023-0 Yes 2mg Take 1 Unive rs 2 mg tablet 3-13 tablet by ity of 13:07: mouth 3 [place] 21 (three) Medical times Branch daily as needed for Anxiety. ALPRAZolam 2023-0 Yes 2mg Take 1 Unive rs 2 mg tablet 3-13 tablet by ity of 13:07: mouth 3 [place] 21 (three) Medical times Branch daily as needed for Anxiety. ALPRAZolam 2023-0 Yes 2mg Take 1 Unive rs 2 mg tablet 3-13 tablet by ity of 13:07: mouth 3 [place] 21 (three) Medical times Branch daily as needed for Anxiety. ALPRAZolam 2023-0 Yes 2mg Take 1 Unive rs 2 mg tablet 3-13 tablet by ity of 13:07: mouth 3 [place] 21 (three) Medical times Branch daily as needed for Anxiety. ALPRAZolam 2023-0 Yes 2mg Take 1 Unive rs 2 mg tablet 3-13 tablet by ity of 13:07: mouth 3 [place] 21 (three) Medical times Branch daily as needed for Anxiety. ALPRAZolam 2023-0 Yes 2mg Take 1 Unive rs 2 mg tablet 3-13 tablet by ity of 13:07: mouth 3 [place] 21 (three) Medical times Branch daily as needed for Anxiety. ALPRAZolam 2023-0 Yes 2mg Take 1 Unive rs 2 mg tablet 3-13 tablet by ity of 13:07: mouth 3 [place] 21 (three) Medical times Branch daily as needed for Anxiety. ALPRAZolam 2023-0 Yes 2mg Take 1 Unive rs 2 mg tablet 3-13 tablet by ity of 13:07: mouth 3 [place] 21 (three) Medical times Branch daily as needed for Anxiety. ALPRAZolam 2023-0 Yes 2mg Take 1 Unive rs 2 mg tablet 3-13 tablet by ity of 13:07: mouth 3 [place] 21 (three) Medical times Branch daily as needed for Anxiety. traZODone 2023-0 Yes [id number] 100mg Take 1 [facility] 100 mg 3-13 tablet by ity of tablet 00:00: mouth at [place] [address] bedtime. Medical Branch traZODone 2022-0 Yes [id number] 100mg Take 1 [facility] 100 mg 3-13 tablet by ity of tablet 00:00: mouth at [place] [address] bedtime. Medical Branch traZODone 2022-0 Yes [id number] 100mg Take 1 [facility] 100 mg 3-13 tablet by ity of tablet 00:00: mouth at [place] [address] bedtime. Medical Branch traZODone 2022-0 Yes [id number] 100mg Take 1 [facility] 100 mg 3-13 tablet by ity of tablet 00:00: mouth at [place] [address] bedtime. Medical Branch traZODone 2022-0 Yes [id number] 100mg Take 1 [facility] 100 mg 3-13 tablet by ity of tablet 00:00: mouth at [place] [address] bedtime. Medical Branch traZODone 2022-0 Yes [id number] 100mg Take 1 [facility] 100 mg 3-13 tablet by ity of tablet 00:00: mouth at [place] [address] bedtime. Medical Branch traZODone 2022-0 Yes [id number] 100mg Take 1 [facility] 100 mg 3-13 tablet by ity of tablet 00:00: mouth at [place] [address] bedtime. Medical Branch traZODone 2022-0 Yes [id number] 100mg Take 1 [facility] 100 mg 3-13 tablet by ity of tablet 00:00: mouth at [place] [address] bedtime. Medical Branch traZODone 2022-0 Yes [id number] 100mg Take 1 [facility] [place] 100 mg 3-13 tablet by ity of tablet 00:00: mouth at [place] [address] bedtime. Medical Branch traZODone 2022-0 Yes [id number] 100mg Take 1 [facility] [place] 100 mg 3-13 tablet by ity of tablet 00:00: mouth at [place] [address] bedtime. Medical Branch traZODone 2022-0 Yes [id number] 100mg Take 1 [facility] [place] 100 mg 3-13 tablet by ity of tablet 00:00: mouth at [place] [address] bedtime. Medical Branch traZODone 2022-0 Yes [id number] 100mg Take 1 [facility] [place] 100 mg 3-13 tablet by ity of tablet 00:00: mouth at [place] [address] bedtime. Medical Branch traZODone 2022-0 Yes [id number] 100mg Take 1 [facility] [place] 100 mg 3-13 tablet by ity of tablet 00:00: mouth at [place] [address] bedtime. Medical Branch traZODone 2022-0 Yes [id number] 100mg Take 1 [facility] [place] 100 mg 3-13 tablet by ity of tablet 00:00: mouth at [place] [address] bedtime. Medical Branch traZODone 2022-0 Yes [id number] 100mg Take 1 [facility] [place] 100 mg 3-13 tablet by ity of tablet 00:00: mouth at [place] [address] bedtime. Medical Branch traZODone 2022-0 Yes [id number] 100mg Take 1 [facility] [place] 100 mg 3-13 tablet by ity of tablet 00:00: mouth at [place] [address] bedtime. Medical Branch traZODone 2022-0 Yes [id number] 100mg Take 1 [facility] [place] 100 mg 3-13 tablet by ity of tablet 00:00: mouth at [place] [address] bedtime. Medical Branch traZODone 2022-0 Yes [id number] 100mg Take 1 [facility] 100 mg 3-13 tablet by ity of tablet 00:00: mouth at [place] [address] bedtime. Medical Branch traZODone 2022-0 Yes [id number] 100mg Take 1 [facility] 100 mg 3-13 tablet by ity of tablet 00:00: mouth at [place] [address] bedtime. Medical Branch traZODone 2022-0 Yes [id number] 100mg Take 1 [facility] [place] 100 mg 3-13 tablet by ity of tablet 00:00: mouth at [place] [address] bedtime. Medical Branch traZODone 2022-0 Yes [id number] 100mg Take 1 [facility] [place] 100 mg 3-13 tablet by ity of tablet 00:00: mouth at [place] [address] bedtime. Medical Branch traZODone 2022-0 Yes [id number] 100mg Take 1 [facility] [place] 100 mg 3-13 tablet by ity of tablet 00:00: mouth at [place] [address] bedtime. Medical Branch traZODone 2022-0 Yes [id number] 100mg Take 1 [facility] [place] 100 mg 3-13 tablet by ity of tablet 00:00: mouth at [place] [address] bedtime. Medical Branch traZODone 2022-0 Yes [id number] 100mg Take 1 [facility] 100 mg 3-13 tablet by ity of tablet 00:00: mouth at [place] [address] bedtime. Medical Branch cloNIDine 2022-0 Yes [id number] .2mg Take 1 [facility] 0.2 mg 3-13 tablet by ity of tablet 00:00: mouth in [place] 00 the Medical morning Branch and 1 tablet at noon and 1 tablet in the evening. Take for BP readings > 160/100 traZODone 3-0 Yes [id number] 100mg Take 1 [facility] 100 mg 3-13 tablet by ity of tablet 00:00: mouth at [place] [address] bedtime. Medical Branch nicotine 14 2022-0 Yes [id number] 1{patch Apply 1 [facility] mg/24 hr 3-13 } Patch to ity of patch 00:00: area() [place] 00 every 24 Medical ([facility]) hours. metoprolol 2022-0 Yes [id number] 50mg Take 1 Un mouna succinate 3-13 tablet by ity o f XL 50 mg 24 00:00: mouth in [place] hr tablet 00 the Medical morning. Branch cloNIDine 2022-0 Yes [id number] .2mg Take 1 Un [facility] 0.2 mg 3-13 tablet by ity of tablet 00:00: mouth in [place] 00 the Medical morning Branch and 1 tablet at noon and 1 tablet in the evening. Take for BP readings > 160/100 traZODone 2022-0 Yes [id number] 100mg Take 1 [facility] 100 mg 3-13 tablet by ity of tablet 00:00: mouth at [place] [address] bedtime. Medical Branch nicotine 14 2022-0 Yes [id number] 1{patch Apply 1 [facility] mg/24 hr 3-13 } Patch to ity of patch 00:00: area() [place] 00 every 24 Medical ([facility]) hours. metoprolol 3-0 Yes [id number] 50mg Take 1 Un mouna succinate 3-13 tablet by ity o f XL 50 mg 24 00:00: mouth in [place] hr tablet 00 the Medical morning. Branch cloNIDine 2022-0 Yes [id number] .2mg Take 1 Un [facility] 0.2 mg 3-13 tablet by ity of tablet 00:00: mouth in [place] 00 the Medical morning Branch and 1 tablet at noon and 1 tablet in the evening. Take for BP readings > 160/100 traZODone 2023-0 Yes [id number] 100mg Take 1 [facility] 100 mg 3-13 tablet by ity of tablet 00:00: mouth at [place] [address] bedtime. Medical Branch nicotine 14 2022-0 Yes [id number] 1{patch Apply 1 [facility] mg/24 hr 3-13 } Patch to ity of patch 00:00: area(s) [place] 00 every 24 Medical ([facility] Branch ur) hours. metoprolol 2022-0 Yes [id number] 50mg Take 1 Un mouna succinate 3-13 tablet by ity o f XL 50 mg 24 00:00: mouth in [place] hr tablet 00 the Medical morning. Branch cloNIDine 2022-0 Yes [id number] .2mg Take 1 Un [facility] 0.2 mg 3-13 tablet by ity of tablet 00:00: mouth in [place] 00 the Medical morning Branch and 1 tablet at noon and 1 tablet in the evening. Take for BP readings > 160/100 traZODone 2022-0 Yes [id number] 100mg Take 1 Un [facility] 100 mg 3-13 tablet by ity of tablet 00:00: mouth at [place] [address] bedtime. Medical Branch nicotine 14 0 Yes [id number] 1{patch Apply 1 [facility] mg/24 hr 3-13 } Patch to ity of patch 00:00: area(s) [place] 00 every 24 Medical ([facility] Branch ur) hours. metoprolol 2022-0 Yes [id number] 50mg Take 1 Un mouna succinate 3-13 tablet by ity o f XL 50 mg 24 00:00: mouth in [place] hr tablet 00 the Medical morning. Branch cloNIDine 2022-0 Yes [id number] .2mg Take 1 Un [facility] 0.2 mg 3-13 tablet by ity of tablet 00:00: mouth in [place] 00 the Medical morning Branch and 1 tablet at noon and 1 tablet in the evening. Take for BP readings > 160/100 traZODone 2022-0 Yes [id number] 100mg Take 1 Un [facility] 100 mg 3-13 tablet by ity of tablet 00:00: mouth at [place] [address] bedtime. Medical Branch nicotine 14 2022-0 Yes [id number] 1{patch Apply 1 [facility] mg/24 hr 3-13 } Patch to ity of patch 00:00: area(s) [place] 00 every 24 Medical ([facility] Branch ur) hours. metoprolol 2022-0 Yes [id number] 50mg Take 1 Un m[facility] succinate 3-13 tablet by ity o f XL 50 mg 24 00:00: mouth in [place] hr tablet 00 the Medical morning. Branch cloNIDine 2022-0 Yes [id number] .2mg Take 1 Un [facility] 0.2 mg 3-13 tablet by ity of tablet 00:00: mouth in [place] 00 the Medical morning Branch and 1 tablet at noon and 1 tablet in the evening. Take for BP readings > 160/100 traZODone 2022-0 Yes [id number] 100mg Take 1 [facility] 100 mg 3-13 tablet by ity of tablet 00:00: mouth at [place] [address] bedtime. Medical Branch nicotine 14 2022-0 Yes [id number] 1{patch Apply 1 [facility] mg/24 hr 3-13 } Patch to ity of patch 00:00: area(s) [place] 00 every 24 Medical ([facility]) hours. metoprolol 2022-0 Yes [id number] 50mg Take 1 Un mouna succinate 3-13 tablet by ity o f XL 50 mg 24 00:00: mouth in [place] hr tablet 00 the Medical morning. Branch cloNIDine 2022-0 Yes [id number] .2mg Take 1 Un [facility] 0.2 mg 3-13 tablet by ity of tablet 00:00: mouth in [place] 00 the Medical morning Branch and 1 tablet at noon and 1 tablet in the evening. Take for BP readings > 160/100 traZODone 2022-0 Yes [id number] 100mg Take 1 [facility] 100 mg 3-13 tablet by ity of tablet 00:00: mouth at [place] [address] bedtime. Medical Branch nicotine 14 2022-0 Yes [id number] 1{patch Apply 1 [facility] mg/24 hr 3-13 } Patch to ity of patch 00:00: area(s) [place] 00 every 24 Medical ([facility] ur) hours. metoprolol 2022-0 Yes [id number] 50mg Take 1 Un m[facility]a succinate 3-13 tablet by ity o f XL 50 mg 24 00:00: mouth in [place] hr tablet 00 the Medical morning. Branch cloNIDine 2022-0 Yes [id number] .2mg Take 1 Un [facility] 0.2 mg 3-13 tablet by ity of tablet 00:00: mouth in [place] 00 the Medical morning Branch and 1 tablet at noon and 1 tablet in the evening. Take for BP readings > 160/100 traZODone 2022-0 Yes [id number] 100mg Take 1 [facility] 100 mg 3-13 tablet by ity of tablet 00:00: mouth at [place] [address] bedtime. Medical Branch nicotine 14 2022-0 Yes [id number] 1{patch Apply 1 [facility] mg/24 hr 3-13 } Patch to ity of patch 00:00: area(s) [place] 00 every 24 Medical ([facility] ur) hours. metoprolol 2022-0 Yes [id number] 50mg Take 1 Un m[facility] succinate 3-13 tablet by ity o f XL 50 mg 24 00:00: mouth in [place] hr tablet 00 the Medical morning. Branch cloNIDine 2022-0 Yes [id number] .2mg Take 1 [facility] 0.2 mg 3-13 tablet by ity of tablet 00:00: mouth in [place] the Medical morning Branch and 1 tablet at noon and 1 tablet in the evening. Take for BP readings > 160/100 traZODone 2022-0 Yes [id number] 100mg Take 1 [facility] 100 mg 3-13 tablet by ity of tablet 00:00: mouth at [place] [address] bedtime. Medical Branch nicotine 14 2022-0 Yes [id number] 1{patch Apply 1 [facility] mg/24 hr 3-13 } Patch to ity of patch 00:00: [facility]() [place] 00 every 24 Medical ([facility] ur) hours. metoprolol 2022-0 Yes [id number] 50mg Take 1 Un m[facility]a succinate 3-13 tablet by ity o f XL 50 mg 24 00:00: mouth in [place] hr tablet 00 the Medical morning. Branch cloNIDine 2022-0 Yes [id number] .2mg Take 1 Un [facility] 0.2 mg 3-13 tablet by ity of tablet 00:00: mouth in [place] 00 the Medical morning Branch and 1 tablet at noon and 1 tablet in the evening. Take for BP readings > 160/100 traZODone 2022-0 Yes [id number] 100mg Take 1 [facility] 100 mg 3-13 tablet by ity of tablet 00:00: mouth at [place] [address] bedtime. Medical Branch nicotine 14 2022-0 Yes [id number] 1{patch Apply 1 [facility] mg/24 hr 3-13 } Patch to ity of patch 00:00: area() [place] 00 every 24 Medical ([facility] Branch ur) hours. metoprolol 2022-0 Yes [id number] 50mg Take 1 Un m[facility] succinate 3-13 tablet by ity o f XL 50 mg 24 00:00: mouth in [place] hr tablet 00 the Medical morning. Branch cloNIDine 2022-0 Yes [id number] .2mg Take 1 [facility] 0.2 mg 3-13 tablet by ity of tablet 00:00: mouth in [place] 00 the Medical morning Branch and 1 tablet at noon and 1 tablet in the evening. Take for BP readings > 160/100 traZODone 2022-0 Yes [id number] 100mg Take 1 [facility] 100 mg 3-13 tablet by ity of tablet 00:00: mouth at [place] [address] bedtime. Medical Branch nicotine 14 2022-0 Yes [id number] 1{patch Apply 1 [facility] mg/24 hr 3-13 } Patch to ity of patch 00:00: area() [place] [address] every 24 Medical ([facility] Branch ur) hours. metoprolol 2022-0 Yes [id number] 50mg Take 1 [facility] succinate 3-13 tablet by ity o f XL 50 mg 24 00:00: mouth in [place] hr tablet 00 the Medical morning. Branch cloNIDine 2022-0 Yes [id number] .2mg Take 1 [facility] 0.2 mg 3-13 tablet by ity of tablet 00:00: mouth in [place] 00 the Medical morning Branch and 1 tablet at noon and 1 tablet in the evening. Take for BP readings > 160/100 traZODone 2022-0 Yes [id number] 100mg Take 1 [facility] [place] 100 mg 3-13 tablet by ity of tablet 00:00: mouth at [place] [address] bedtime. Medical Branch nicotine 14 2022-0 Yes [id number] 1{patch Apply 1 [facility] mg/24 hr 3-13 } Patch to ity of patch 00:00: area() [place] 00 every 24 Medical ([facility] Branch ur) hours. metoprolol 2023-0 Yes [id number] 50mg Take 1 [facility] [place] succinate 3-13 tablet by ity o f XL 50 mg 24 00:00: mouth in [place] hr tablet 00 the Medical morning. Branch cloNIDine 2022-0 Yes [id number] .2mg Take 1 [place] 0.2 mg 3-13 tablet by ity of tablet 00:00: mouth in [place] 00 the Medical morning Branch and 1 tablet at noon and 1 tablet in the evening. Take for BP readings > 160/100 traZODone 2022-0 Yes [id number] 100mg Take 1 [place] 100 mg 3-13 tablet by ity of tablet 00:00: mouth at [place] [address] bedtime. Medical Branch nicotine 14 2022-0 Yes [id number] 1{patch Apply 1 [facility] mg/24 hr 3-13 } Patch to ity of patch 00:00: area() [place] 00 every 24 Medical ([facility]) hours. metoprolol 2022-0 Yes [id number] 50mg Take 1 [facility] [place] succinate 3-13 tablet by ity o f XL 50 mg 24 00:00: mouth in [place] hr tablet 00 the Medical morning. Branch cloNIDine 2022-0 Yes [id number] .2mg Take 1 [facility] [place] 0.2 mg 3-13 tablet by ity of tablet 00:00: mouth in [place] the Medical morning Branch and 1 tablet at noon and 1 tablet in the evening. Take for BP readings > 160/100 traZODone 2022-0 Yes [id number] 100mg Take 1 [facility] [place] 100 mg 3-13 tablet by ity of tablet 00:00: mouth at [place] [address] bedtime. Medical Branch nicotine 14 2022-0 Yes [id number] 1{patch Apply 1 [facility] mg/24 hr 3-13 } Patch to ity of patch 00:00: [facility]() [place] 00 every 24 Medical ([facility]) hours. metoprolol 2022-0 Yes [id number] 50mg Take 1 [facility] [place] succinate 3-13 tablet by ity o f XL 50 mg 24 00:00: mouth in [place] hr tablet 00 the Medical morning. Branch cloNIDine 2022-0 Yes [id number] .2mg Take 1 [place] 0.2 mg 3-13 tablet by ity of tablet 00:00: mouth in [place] 00 the Medical morning Branch and 1 tablet at noon and 1 tablet in the evening. Take for BP readings > 160/100 traZODone 2022-0 Yes [id number] 100mg Take 1 [facility] [place] 100 mg 3-13 tablet by ity of tablet 00:00: mouth at [place] [address] bedtime. Medical Branch nicotine 14 2022-0 Yes [id number] 1{patch Apply 1 [facility] mg/24 hr 3-13 } Patch to ity of patch 00:00: area() [place] 00 every 24 Medical ([facility] ur) hours. metoprolol 2022-0 Yes [id number] 50mg Take 1 [place] succinate 3-13 tablet by ity o f XL 50 mg 24 00:00: mouth in [place] hr tablet 00 the Medical morning. Branch cloNIDine 2022-0 Yes [id number] .2mg Take 1 [place] 0.2 mg 3-13 tablet by ity of tablet 00:00: mouth in [place] the Medical morning Branch and 1 tablet at noon and 1 tablet in the evening. Take for BP readings > 160/100 traZODone 2022-0 Yes [id number] 100mg Take 1 [facility] [place] 100 mg 3-13 tablet by ity of tablet 00:00: mouth at [place] [address] bedtime. Medical Branch nicotine 14 2022-0 Yes [id number] 1{patch Apply 1 [facility] mg/24 hr 3-13 } Patch to ity of patch 00:00: [facility] [place] 00 every 24 Medical ([facility] ur) hours. metoprolol 2022-0 Yes [id number] 50mg Take 1 [facility] [place] succinate 3-13 tablet by ity o f XL 50 mg 24 00:00: mouth in [place] hr tablet 00 the Medical morning. Branch cloNIDine 3-0 Yes [id number] .2mg Take 1 [place] 0.2 mg 3-13 tablet by ity of tablet 00:00: mouth in [place] the Medical morning Branch and 1 tablet at noon and 1 tablet in the evening. Take for BP readings > 160/100 traZODone 3-0 Yes [id number] 100mg Take 1 [facility] [place] 100 mg 3-13 tablet by ity of tablet 00:00: mouth at [place] [address] bedtime. Medical Branch cloNIDine 2022-0 Yes [id number] .2mg Take 1 [facility] [place] 0.2 mg 3-13 tablet by ity of tablet 00:00: mouth in [place] the Medical morning Branch and 1 tablet at noon and 1 tablet in the evening. Take for BP readings > 160/100 traZODone 2023-0 Yes [id number] 100mg Take 1 [facility] [place] 100 mg 3-13 tablet by ity of tablet 00:00: mouth at [place] 00 bedtime. Medical Branch cloNIDine 2023-0 Yes [id number] .2mg Take 1 [facility] [place] 0.2 mg 3-13 tablet by ity of tablet 00:00: mouth in [place] 00 the Medical morning Branch and 1 tablet at noon and 1 tablet in the evening. Take for BP readings > 160/100 traZODone 2023-0 Yes [id number] 100mg Take 1 [facility] [place] 100 mg 3-13 tablet by ity of tablet 00:00: mouth at [place] [address] bedtime. Medical Branch cloNIDine 2023-0 Yes [id number] .2mg Take 1 [facility] [place] 0.2 mg 3-13 tablet by ity of tablet 00:00: mouth in [place] [address] the Medical morning Branch and 1 tablet at noon and 1 tablet in the evening. Take for BP readings > 160/100 traZODone 2023-0 Yes [id number] 100mg Take 1 [facility] [place] 100 mg 3-13 tablet by ity of tablet 00:00: mouth at [place] [address] bedtime. Medical Branch cloNIDine 2023-0 Yes [id number] .2mg Take 1 [facility] [place] 0.2 mg 3-13 tablet by ity of tablet 00:00: mouth in [place] 00 the Medical morning Branch and 1 tablet at noon and 1 tablet in the evening. Take for BP readings > 160/100 traZODone 2023-0 Yes [id number] 100mg Take 1 [facility] [place] 100 mg 3-13 tablet by ity of tablet 00:00: mouth at [place] [address] bedtime. Medical Branch cloNIDine 2023-0 Yes [id number] .2mg Take 1 [facility] [place] 0.2 mg 3-13 tablet by ity of tablet 00:00: mouth in [place] 00 the Medical morning Branch and 1 tablet at noon and 1 tablet in the evening. Take for BP readings > 160/100 traZODone 2023-0 Yes [id number] 100mg Take 1 [facility] [place] 100 mg 3-13 tablet by ity of tablet 00:00: mouth at [place] [address] bedtime. Medical Branch cloNIDine 2023-0 Yes [id number] .2mg Take 1 [facility] [place] 0.2 mg 3-13 tablet by ity of tablet 00:00: mouth in [place] 00 the Medical morning Branch and 1 tablet at noon and 1 tablet in the evening. Take for BP readings > 160/100 traZODone 2022-0 Yes [id number] 100mg Take 1 [facility] [place] 100 mg 3-13 tablet by ity of tablet 00:00: mouth at [place] [address] bedtime. Medical Branch cloNIDine 2022-0 Yes [id number] .2mg Take 1 [facility] [place] 0.2 mg 3-13 tablet by ity of tablet 00:00: mouth in [place] 00 the Medical morning Branch and 1 tablet at noon and 1 tablet in the evening. Take for BP readings > 160/100 traZODone 2022-0 Yes [id number] 100mg Take 1 [facility] [place] 100 mg 3-13 tablet by ity of tablet 00:00: mouth at [place] [address] bedtime. Medical Branch cloNIDine 2022-0 Yes [id number] .2mg Take 1 [facility] [place] 0.2 mg 3-13 tablet by ity of tablet 00:00: mouth in [place] 00 the Medical morning Branch and 1 tablet at noon and 1 tablet in the evening. Take for BP readings > 160/100 traZODone 2022-0 Yes [id number] 100mg Take 1 [facility] [place] 100 mg 3-13 tablet by ity of tablet 00:00: mouth at [place] [address] bedtime. Medical Branch traZODone 2022-0 Yes [id number] 100mg Take 1 [facility] [place] 100 mg 3-13 tablet by ity of tablet 00:00: mouth at [place] [address] bedtime. Medical Branch traZODone 2022-0 Yes [id number] 100mg Take 1 [facility] [place] 100 mg 3-13 tablet by ity of tablet 00:00: mouth at [place] [address] bedtime. Medical Branch traZODone 2022-0 Yes [id number] 100mg Take 1 [facility] [place] 100 mg 3-13 tablet by ity of tablet 00:00: mouth at [place] [address] bedtime. Medical Branch traZODone 2022-0 Yes [id number] 100mg Take 1 [facility] [place] 100 mg 3-13 tablet by ity of tablet 00:00: mouth at [place] [address] bedtime. Medical Branch cloNIDine 2022-0 3- No [id number] .2mg Take 1 U nivers 0.2 mg 3-13 - tablet by ity of tablet 00:00: 00:00 mouth in [place] 00 :00 the Medical morning Branch and 1 tablet at noon and 1 tablet in the evening. Take for BP readings > 160/100 cloNIDine 2022- No [id number] .2mg Take 1 U nivers 0.2 mg 10-28 tablet by ity of tablet 00:00: 00:00 mouth in [place] 00 :00 the Medical morning Branch and 1 tablet at noon and 1 tablet in the evening. Take for BP readings > 160/100 nicotine 14 2022- No [id number] 1{patch Apply 1 [facility] mg/24 hr 10-28 } Patch to ity of patch 00:00: 00:00 [facility](s) [place] 00 :00 every 24 Medical ([facility]) hours. metoprolol 2022- No [id number] 50mg Take 1 U nivers succinate 10-28 tablet by ity of XL 50 mg 24 00:00: 00:00 mouth in [place] hr tablet 00 :00 the Medical morning. Branch nicotine 14 2022- No [id number] 1{patch Apply 1 [facility] mg/24 hr 10-28 } Patch to ity of patch 00:00: 00:00 [facility]() [place] 00 :00 every 24 Medical ([facility]) hours. metoprolol 2022- No [id number] 50mg Take 1 U nivers succinate 10-28 tablet by ity of XL 50 mg 24 00:00: 00:00 mouth in [place] hr tablet 00 :00 the Medical morning. Branch amLODIPine 2022- No [id number] 10mg Take 1 Univers 10 mg 10-28 tablet by ity of tablet 00:00: 00:00 mouth in [place] 00 :00 the Medical morning. Branch amLODIPine 2022- No [id number] 10mg Take 1 [facility] 10 mg 10-28 tablet by ity of tablet 00:00: 00:00 mouth in [place] 00 :00 the Medical morning. Branch ondansetron 2022- No 4mg 4 mg, Slow Univers (ZOFRAN 10-23 IV Push, ity of (PF)) 01:45: 01:00 ONCE, 1 [place] injection 4 00 :00 dose, On Medi ghazal mg Fri10/22/22 Branch at 1945, HUNG FENTanyl PF 2022- No 75ug 75 mcg, [facility] (SUBLIMAZE 10-23 03- Slow IV ity o f (PF)) 01:45: 01:00 Push, [place] injection 00 :00 ONCE, 1 Medical 75 mcg dose, On Branch Fri10/22/22 at 1945, STAT ondansetron 2022-0 Yes [id number] 4mg Take 1 Univers 4 mg 3-07 tablet by ity of disintegrat 00:00: mouth [place] ing tablet 00 every 4 Medica l (four) Branch hours as needed for Nausea and Vomiting (N/V). ondansetron 3-0 Yes [id number] 4mg Take 1 Univers 4 mg 3-07 tablet by ity of disintegrat 00:00: mouth [place] ing tablet 00 every 4 Medica l (four) Branch hours as needed for Nausea and Vomiting (N/V). ondansetron 2022-0 Yes [id number] 4mg Take 1 [facility] 4 mg 3-07 tablet by ity of disintegrat 00:00: mouth [place] ing tablet 00 every 4 Medica l (four) Branch hours as needed for Nausea and Vomiting (N/V). ondansetron 3-0 Yes [id number] 4mg Take 1 [facility] 4 mg 3-07 tablet by ity of disintegrat 00:00: mouth [place] ing tablet 00 every 4 Medica l (four) Branch hours as needed for Nausea and Vomiting (N/V). ondansetron 3-0 Yes [id number] 4mg Take 1 [facility] 4 mg 3-07 tablet by ity of disintegrat 00:00: mouth [place] ing tablet 00 every 4 Medica l (four) Branch hours as needed for Nausea and Vomiting (N/V). ondansetron 2023-0 Yes [id number] 4mg Take 1 [facility] 4 mg 3-07 tablet by ity of disintegrat 00:00: mouth [place] ing tablet 00 every 4 Medica l (four) Branch hours as needed for Nausea and Vomiting (N/V). ondansetron 2023-0 Yes [id number] 4mg Take 1 Univers 4 mg 3-07 tablet by ity of disintegrat 00:00: mouth [place] ing tablet 00 every 4 Medica l (four) Branch hours as needed for Nausea and Vomiting (N/V). ondansetron 2023-0 Yes [id number] 4mg Take 1 [facility] 4 mg 3-07 tablet by ity of disintegrat 00:00: mouth [place] ing tablet 00 every 4 Medica l (four) Branch hours as needed for Nausea and Vomiting (N/V). ondansetron 2023-0 Yes [id number] 4mg Take 1 Univers 4 mg 3-07 tablet by ity of disintegrat 00:00: mouth [place] ing tablet 00 every 4 Medica l (four) Branch hours as needed for Nausea and Vomiting (N/V). ondansetron 2023-0 Yes [id number] 4mg Take 1 [facility] 4 mg 3-07 tablet by ity of disintegrat 00:00: mouth [place] ing tablet 00 every 4 Medica l (four) Branch hours as needed for Nausea and Vomiting (N/V). ondansetron 2023-0 Yes [id number] 4mg Take 1 Univers 4 mg 3-07 tablet by ity of disintegrat 00:00: mouth [place] ing tablet 00 every 4 Medica l (four) Branch hours as needed for Nausea and Vomiting (N/V). ondansetron 2023-0 Yes [id number] 4mg Take 1 Univers 4 mg 3-07 tablet by ity of disintegrat 00:00: mouth [place] ing tablet 00 every 4 Medica l (four) Branch hours as needed for Nausea and Vomiting (N/V). ondansetron 2023-0 Yes [id number] 4mg Take 1 Univers 4 mg 3-07 tablet by ity of disintegrat 00:00: mouth [place] ing tablet 00 every 4 Medica l (four) Branch hours as needed for Nausea and Vomiting (N/V). ondansetron 2023-0 Yes [id number] 4mg Take 1 Univers 4 mg 3-07 tablet by ity of disintegrat 00:00: mouth [place] ing tablet 00 every 4 Medica l (four) Branch hours as needed for Nausea and Vomiting (N/V). ondansetron 2023-0 Yes [id number] 4mg Take 1 Univers 4 mg 3-07 tablet by ity of disintegrat 00:00: mouth [place] ing tablet 00 every 4 Medica l (four) Branch hours as needed for Nausea and Vomiting (N/V). ondansetron 2023-0 Yes [id number] 4mg Take 1 Univers 4 mg 3-07 tablet by ity of disintegrat 00:00: mouth [place] ing tablet 00 every 4 Medica l (four) Branch hours as needed for Nausea and Vomiting (N/V). ondansetron 2023-0 Yes [id number] 4mg Take 1 Univers 4 mg 3-07 tablet by ity of disintegrat 00:00: mouth [place] ing tablet 00 every 4 Medica l (four) Branch hours as needed for Nausea and Vomiting (N/V). ondansetron 2023-0 Yes [id number] 4mg Take 1 Univers 4 mg 3-07 tablet by ity of disintegrat 00:00: mouth [place] ing tablet 00 every 4 Medica l (four) Branch hours as needed for Nausea and Vomiting (N/V). ondansetron 2023-0 Yes [id number] 4mg Take 1 Univers 4 mg 3-07 tablet by ity of disintegrat 00:00: mouth [place] ing tablet 00 every 4 Medica l (four) Branch hours as needed for Nausea and Vomiting (N/V). ondansetron 2023-0 Yes [id number] 4mg Take 1 Univers 4 mg 3-07 tablet by ity of disintegrat 00:00: mouth [place] ing tablet 00 every 4 Medica l (four) Branch hours as needed for Nausea and Vomiting (N/V). ondansetron 2023-0 Yes [id number] 4mg Take 1 Univers 4 mg 3-07 tablet by ity of disintegrat 00:00: mouth [place] ing tablet 00 every 4 Medica l (four) Branch hours as needed for Nausea and Vomiting (N/V). ondansetron 2023-0 Yes [id number] 4mg Take 1 Univers 4 mg 3-07 tablet by ity of disintegrat 00:00: mouth [place] ing tablet 00 every 4 Medica l (four) Branch hours as needed for Nausea and Vomiting (N/V). ondansetron 2023-0 Yes [id number] 4mg Take 1 Univers 4 mg 3-07 tablet by ity of disintegrat 00:00: mouth [place] ing tablet 00 every 4 Medica l (four) Branch hours as needed for Nausea and Vomiting (N/V). ondansetron 2023-0 Yes [id number] 4mg Take 1 Univers 4 mg 3-07 tablet by ity of disintegrat 00:00: mouth [place] ing tablet 00 every 4 Medica l (four) Branch hours as needed for Nausea and Vomiting (N/V). ondansetron 2023-0 Yes [id number] 4mg Take 1 Univers 4 mg 3-07 tablet by ity of disintegrat 00:00: mouth [place] ing tablet 00 every 4 Medica l (four) Branch hours as needed for Nausea and Vomiting (N/V). ondansetron 2023-0 Yes [id number] 4mg Take 1 Univers 4 mg 3-07 tablet by ity of disintegrat 00:00: mouth [place] ing tablet 00 every 4 Medica l (four) Branch hours as needed for Nausea and Vomiting (N/V). ondansetron 2023-0 2023- No [id number] 4mg Take 1 Univers 4 mg 3-07 06-06 tablet by ity of disintegrat 00:00: 00:00 [place] ing tablet 00 :00 every 4 Medica l (four) Branch hours as needed for Nausea and Vomiting (N/V). ondansetron 2023-0 2023- No [id number] 4mg Take 1 Univers 4 mg 3-07 06-06 tablet by ity of disintegrat 00:00: 00:00 mouth [place] ing tablet 00 :00 every 4 Medica l (four) Branch hours as needed for Nausea and Vomiting (N/V). naproxen 2023-0 2023- No [id number] 500mg Take 1 U nivers 500 mg 3-02 17-18 tablet by ity of tablet 00:00: 04:59 mouth in [place] 00 :00 the Medical morning Branch and 1 tablet in the evening. Take with meals. Do all this for 10 days. naproxen 2023-0 2023- No [id number] 500mg Take 1 U nivers 500 mg -02 17-18 tablet by ity of tablet 00:00: 04:59 mouth in [place] 00 :00 the Medical morning Branch and 1 tablet in the evening. Take with meals. Do all this for 10 days. naproxen 2023-0 2023- No [id number] 500mg Take 1 U nivers 500 mg 3-02 17-18 tablet by ity of tablet 00:00: 04:59 mouth in [place] 00 :00 the Medical morning Branch and 1 tablet in the evening. Take with meals. Do all this for 10 days. naproxen 2022-2022- No [id number] 500mg Take 1 U nivers 500 mg 10-22-18 tablet by ity of tablet 00:00: 04:59 mouth in [place] 00 :00 the Medical morning Branch and 1 tablet in the evening. Take with meals. Do all this for 10 days. naproxen 2022-0 2022- No [id number] 500mg Take 1 U nivers 500 mg 3-18 tablet by ity of tablet 00:00: 04:59 mouth in [place] 00 :00 the Medical morning Branch and 1 tablet in the evening. Take with meals. Do all this for 10 days. HYDROcodone 2022-2022- No [id number] 1{tbl} Take 1 U nivers -acetaminop 3-07 03-15 tablet by it y of hen (NOREXO5) 00:00: 04:59 mouth [place] 7.5-325 mg 00 :00 every 8 Medica l per tablet (eight) Branch hours as needed for Pain for up to 7 days. Indication s: acute pain HYDROcodone 2022-2022- No [id number] 1{tbl} Take 1 U nivers -acetaminop 3-07 03-15 tablet by it y of hen (NORCO) 00:00: 04:59 mouth [place] 7.5-[place] mg 00 :00 every 8 Medica l per tablet (eight) Branch hours as needed for Pain for up to 7 days. Indication s: acute pain HYDROcodone 2022-0 2022- No [id number] 1{tbl} Take 1 U nivers -acetaminop 3-07 03-15 tablet by it y of hen (NORCO) 00:00: 04:59 mouth [place] 7.5-[place] mg 00 :00 every 8 Medica l per tablet (eight) Branch hours as needed for Pain for up to 7 days. Indication s: acute pain HYDROcodone 2022-0 2022- No [id number] 1{tbl} Take 1 U nivers -acetaminop 3-07 03-15 tablet by it y of hen (Pixlee) 00:00: 04:59 mouth [place] 7.5-[place] mg 00 :00 every 8 Medica l per tablet (eight) Branch hours as needed for Pain for up to 7 days. Indication s: acute pain HYDROcodone 0 3- No [id number] 1{tbl} Take 1 U nivers -acetaminop 3-07 03-15 tablet by it y of hen (NORCO) 00:00: 04:59 mouth [place] 7.5-[place] mg 00 :00 every 8 Medica l per tablet (eight) Branch hours as needed for Pain for up to 7 days. Indication s: acute pain lisinopriL 2021-08 Yes 20mg Take 1 Unive rs 20 mg 2-14 tablet by ity of tablet 00:00: mouth in [place] the Medical morning. Branch lisinopriL 2021-08 Yes 20mg Take 1 Unive rs 20 mg 2-14 tablet by ity of tablet 00:00: mouth in [place] the morning. Branch lisinopriL 2021-08 Yes 20mg Take 1 Unive rs 20 mg 2-14 tablet by ity of tablet 00:00: mouth in [place] the morning. Branch lisinopriL 2021-08 Yes 20mg Take 1 Unive rs 20 mg 2-14 tablet by ity of tablet 00:00: mouth in [place] the morning. Branch lisinopriL 2021-08 Yes 20mg Take 1 Unive rs 20 mg 2-14 tablet by ity of tablet 00:00: mouth in [place] the morning. Branch lisinopriL 2021- Yes 20mg Take 1 Unive rs 20 mg 2-14 tablet by ity of tablet 00:00: mouth in [place] the morning. Branch lisinopriL 2021- Yes 20mg Take 1 Unive rs 20 mg 2-14 tablet by ity of tablet 00:00: mouth in [place] the morning. Branch lisinopriL 2021- Yes 20mg Take 1 Unive rs 20 mg 2-14 tablet by ity of tablet 00:00: mouth in [place] the morning. Branch lisinopriL 2021-08 Yes 20mg Take 1 Unive rs 20 mg 2-14 tablet by ity of tablet 00:00: mouth in [place] the morning. Branch lisinopriL 2021- Yes 20mg Take 1 Unive rs 20 mg 2-14 tablet by ity of tablet 00:00: mouth in [place] 00 the Medical morning. Branch lisinopriL 2021-08 Yes 20mg Take 1 Unive rs 20 mg 2-14 tablet by ity of tablet 00:00: mouth in [place] 00 the Medical morning. Branch lisinopriL 2021-08 Yes 20mg Take 1 Unive rs 20 mg 2-14 tablet by ity of tablet 00:00: mouth in [place] 00 the Medical morning. Branch lisinopriL 2021-08 Yes 20mg Take 1 Unive rs 20 mg 2-14 tablet by ity of tablet 00:00: mouth in [place] 00 the Medical morning. Branch lisinopriL 2021-08 Yes 20mg Take 1 Unive rs 20 mg 2-14 tablet by ity of tablet 00:00: mouth in [place] 00 the Medical morning. Branch lisinopriL 2021-08- No 20mg Take 1 Univ ers 20 mg 2-14 04-05 tablet by ity of tablet 00:00: 00:00 mouth in [place] 00 :00 the Medical morning. Branch lisinopriL 2021-08- No 20mg Take 1 Univ ers 20 mg 2-14 04-05 tablet by ity of tablet 00:00: 00:00 mouth in [place] 00 :00 the Medical morning. Branch ALPRAZolam 2018-08 Yes 2mg Take 2 mg [facility] (XANAX) 2 2-28 by mouth 3 ity of mg tablet 10:49: (three) [place] 54 times Medical daily as Branch needed for Anxiety. ALPRAZolam 2018-08 Yes 2mg Take 2 mg [facility] (XANAX) 2 2-28 by mouth 3 ity of mg tablet 10:49: (three) [place] 54 times Medical daily as Branch needed for Anxiety. ALPRAZolam 2018-08 Yes 2mg Take 2 mg [facility] (XANAX) 2 2-28 by mouth 3 ity of mg tablet 10:49: (three) [place] 54 times Medical daily as Branch needed for Anxiety. ALPRAZolam 2018-08 Yes 2mg Take 2 mg [facility] (XANAX) 2 2-28 by mouth 3 ity of mg tablet 10:49: (three) [place] 54 times Medical daily as Branch needed for Anxiety. ALPRAZolam 2018-08 Yes 2mg Take 2 mg [facility] (XANAX) 2 2-28 by mouth 3 ity of mg tablet 10:49: (three) [place] 54 times Medical daily as Branch needed for Anxiety. simvastatin 2015-0 Yes 20mg Take 1 Tab Univers (ZOCOR) 20 7-31 by mouth ity o f mg tablet 00:00: at [place] 00 bedtime. Medical Branch simvastatin 0 Yes 20mg Take 1 Tab Univers (ZOCOR) 20 7-31 by mouth ity o f mg tablet 00:00: at [place] 00 bedtime. Medical Branch simvastatin Yes 20mg Take 1 Tab Univers (ZOCOR) 20 7-31 by mouth ity o f mg tablet 00:00: at [place] 00 bedtime. Medical Branch simvastatin Yes 20mg Take 1 Tab Univers (ZOCOR) 20 7-31 by mouth ity o f mg tablet 00:00: at [place] 00 bedtime. Medical Branch simvastatin 2014-0 Yes 20mg Take 1 Tab [facility] (ZOCOR) 20 7-31 by mouth ity o f mg tablet 00:00: at [place] 00 bedtime. Medical Branch simvastatin 2014- Yes 20mg Take 1 Tab [facility] (ZOCOR) 20 7-31 by mouth ity o f mg tablet 00:00: at [place] 00 bedtime. Medical Branch simvastatin Yes 20mg Take 1 Tab [facility] (ZOCOR) 20 7-31 by mouth ity o f mg tablet 00:00: at [place] 00 bedtime. Medical Branch simvastatin 2014-0 Yes 20mg Take 1 Tab [facility] (ZOCOR) 20 7-31 by mouth ity o f mg tablet 00:00: at [place] 00 bedtime. Medical Branch simvastatin 2014-0 Yes 20mg Take 1 Tab [facility] (ZOCOR) 20 7-31 by mouth ity o f mg tablet 00:00: at [place] 00 bedtime. Medical Branch simvastatin 2014-0 Yes 20mg Take 1 Tab [facility] (ZOCOR) 20 7-31 by mouth ity o f mg tablet 00:00: at [place] 00 bedtime. Medical Branch simvastatin 2014-0 Yes 20mg Take 1 Tab [facility] (ZOCOR) 20 7-31 by mouth ity o f mg tablet 00:00: at [place] 00 bedtime. Medical Branch simvastatin 2014-0 Yes 20mg Take 1 Tab [facility] (ZOCOR) 20 7-31 by mouth ity o f mg tablet 00:00: at [place] 00 bedtime. Medical Branch simvastatin 0 Yes 20mg Take 1 Tab Univers (ZOCOR) 20 7-31 by mouth ity o f mg tablet 00:00: at [place] 00 bedtime. Medical Branch simvastatin 2014-0 Yes 20mg Take 1 Tab Univers (ZOCOR) 20 7-31 by mouth ity o f mg tablet 00:00: at [place] 00 bedtime. Medical Branch simvastatin 2014-0 Yes 20mg Take 1 Tab [facility] (ZOCOR) 20 7-31 by mouth ity o f mg tablet 00:00: at [place] 00 bedtime. Medical Branch simvastatin 2014-0 Yes 20mg Take 1 Tab [facility] (ZOCOR) 20 7-31 by mouth ity o f mg tablet 00:00: at [place] 00 bedtime. Medical Branch simvastatin 2014-0 3- No 20mg Take 1 Tab [facility] (ZOCOR) 20 7-31 03-31 by mouth ity of mg tablet 00:00: 00:00 at [place] 00 :00 bedtime. Medical Branch nitroglycer Yes [id number] .4mg Place 1 Univers in 6-29 Tab under ity of (NITROSTAT) 00:00: the tongue [place] 0.4 mg 00 every 5 Medical sublingual (five) Branch tablet minutes as needed for Chest pain. nitroglycer Yes [id number] .4mg Place 1 Univers in 6-29 Tab under ity of (NITROSTAT) 00:00: the tongue [place] 0.4 mg 00 every 5 Medical sublingual (five) Branch tablet minutes as needed for Chest pain. nitroglycer Yes [id number] .4mg Place 1 Univers in 6-29 Tab under ity of (NITROSTAT) 00:00: the tongue [place] 0.4 mg 00 every 5 Medical sublingual (five) Branch tablet minutes as needed for Chest pain. nitroglycer Yes [id number] .4mg Place 1 Univers in 6-29 Tab under ity of (NITROSTAT) 00:00: the tongue [place] 0.4 mg 00 every 5 Medical sublingual (five) Branch tablet minutes as needed for Chest pain. nitroglycer Yes [id number] .4mg Place 1 Univers in 6-29 Tab under ity of (NITROSTAT) 00:00: the tongue [place] 0.4 mg 00 every 5 Medical sublingual (five) Branch tablet minutes as needed for Chest pain. nitroglycer 2014-[id number] [facility] Tab under ity of (NITROSTAT) 00:00: the tongue [place] 0.4 mg 00 every 5 [facility] sublingual (five) Branch tablet minutes as needed for Chest pain. nitroglycer 2014-[id number] [facility] Tab under ity of (NITROSTAT) 00:00: the tongue [place] 0.4 mg 00 every 5 [facility] sublingual (five) Branch tablet minutes as needed for Chest pain. nitroglycer 2014-[id number] [facility] Tab under ity of (NITROSTAT) 00:00: the tongue [place] 0.4 mg 00 every 5 [facility] sublingual (five) Branch tablet minutes as needed for Chest pain. nitroglycer 2014-[id number] [facility] Tab under ity of (NITROSTAT) 00:00: the tongue [place] 0.4 mg 00 every 5 [facility] sublingual (five) Branch tablet minutes as needed for Chest pain. nitroglycer 2014-[id number] [facility]29 Tab under ity of (NITROSTAT) 00:00: the tongue [place] 0.4 mg 00 every 5 [facility] sublingual (five) Branch tablet minutes as needed for Chest pain. nitroglycer 2014-[id number] [facility]29 Tab under ity of (NITROSTAT) 00:00: the tongue [place] 0.4 mg 00 every 5 [facility] sublingual (five) Branch tablet minutes as needed for Chest pain. nitroglycer 2014-[id number] [facility]29 Tab under ity of (NITROSTAT) 00:00: the tongue [place] 0.4 mg 00 every 5 [facility] sublingual (five) Branch tablet minutes as needed for Chest pain. nitroglycer 2015-[id number] [facility] 6[facility]29 Tab under ity of (NITROSTAT) 00:00: the tongue [place] 0.4 mg 00 every 5 [facility] sublingual (five) Branch tablet minutes as needed for Chest pain. nitroglycer 2014-[id number] [facility]29 Tab under ity of (NITROSTAT) 00:00: the tongue [place] 0.4 mg 00 every 5 [facility] sublingual (five) Branch tablet minutes as needed for Chest pain. nitroglycer 2015-[id number] [facility] in 6[facility]29 Tab under ity of (NITROSTAT) 00:00: the tongue [place] 0.4 mg 00 every 5 [facility] sublingual (five) Branch tablet minutes as needed for Chest pain. nitroglycer 2014-[id number] [facility] 6[facility]29 Tab under ity of (NITROSTAT) 00:00: the tongue [place] 0.4 mg 00 every 5 [facility] sublingual (five) Branch tablet minutes as needed for Chest pain. nitroglycer 2014-[id number] [facility] in 6[facility]29 Tab under ity of (NITROSTAT) 00:00: the tongue [place] 0.4 mg 00 every 5 [facility] sublingual (five) Branch tablet minutes as needed for Chest pain. nitroglycer 2014-[id number] [facility] 6[facility]29 Tab under ity of (NITROSTAT) 00:00: the tongue [place] 0.4 mg 00 every 5 [facility] sublingual (five) Branch tablet minutes as needed for Chest pain. nitroglycer 2014-[id number] [facility] 6[facility]29 Tab under ity of (NITROSTAT) 00:00: the tongue [place] 0.4 mg 00 every 5 [facility] sublingual (five) Branch tablet minutes as needed for Chest pain. nitroglycer 2014-[id number] [facility] in 6[facility]29 Tab under ity of (NITROSTAT) 00:00: the tongue [place] 0.4 mg 00 every 5 [facility] sublingual (five) Branch tablet minutes as needed for Chest pain. nitroglycer 2014-[id number] [facility] in 6[facility]29 Tab under ity of (NITROSTAT) 00:00: the tongue [place] 0.4 mg 00 every 5 [facility] sublingual (five) Branch tablet minutes as needed for Chest pain. nitroglycer 2015-[id number] [facility] 6[facility]29 Tab under ity of (NITROSTAT) 00:00: the tongue [place] 0.4 mg 00 every 5 [facility] sublingual (five) Branch tablet minutes as needed for Chest pain. nitroglycer 2014-[id number] [facility] in 6[facility]29 Tab under ity of (NITROSTAT) 00:00: the tongue [place] 0.4 mg 00 every 5 [facility] sublingual (five) Branch tablet minutes as needed for Chest pain. nitroglycer 2014-[id number] [facility] in 6[facility]29 Tab under ity of (NITROSTAT) 00:00: the tongue [place] 0.4 mg 00 every 5 [facility] sublingual (five) Branch tablet minutes as needed for Chest pain. nitroglycer [id number] [facility] in 6[facility]29 Tab under ity of (NITROSTAT) 00:00: the tongue [place] 0.4 mg 00 every 5 [facility] sublingual (five) Branch tablet minutes as needed for Chest pain. nitroglycer 2014- Yes [id number] .4mg Place [facility] in 6[facility]29 Tab under ity of (NITROSTAT) 00:00: the tongue [place] 0.4 mg 00 every 5 [facility] sublingual (five) Branch tablet minutes as needed for Chest pain. nitroglycer Yes [id number] .4mg Place 1 [facility] in 6[facility]29 Tab under ity of (NITROSTAT) 00:00: the tongue [place] 0.4 mg 00 every 5 [facility] sublingual (five) Branch tablet minutes as needed for Chest pain. nitroglycer Yes [id number] .4mg Place [facility] in 6[facility]29 Tab under ity of (NITROSTAT) 00:00: the tongue [place] 0.4 mg 00 every 5 [facility] sublingual (five) Branch tablet minutes as needed for Chest pain. nitroglycer 2014-[id number] [facility] in 6[facility]29 Tab under ity of (NITROSTAT) 00:00: the tongue [place] 0.4 mg 00 every 5 [facility] sublingual (five) Branch tablet minutes as needed for Chest pain. nitroglycer 2014-[id number] [facility] in 6[facility]29 Tab under ity of (NITROSTAT) 00:00: the tongue [place] 0.4 mg 00 every 5 [facility] sublingual (five) Branch tablet minutes as needed for Chest pain. nitroglycer 2014-[id number] [facility] in 6[facility]29 Tab under ity of (NITROSTAT) 00:00: the tongue [place] 0.4 mg 00 every 5 [facility] sublingual (five) Branch tablet minutes as needed for Chest pain. nitroglycer 2014-[id number] [facility] in 6[facility]29 Tab under ity of (NITROSTAT) 00:00: the tongue [place] 0.4 mg 00 every 5 [facility] sublingual (five) Branch tablet minutes as needed for Chest pain. nitroglycer 2014-[id number] [facility] in 6[facility]29 Tab under ity of (NITROSTAT) 00:00: the tongue [place] 0.4 mg 00 every 5 [facility] sublingual (five) Branch tablet minutes as needed for Chest pain. nitroglycer 2014-[id number] 1 [facility] in 6[facility]29 Tab under ity of (NITROSTAT) 00:00: the tongue [place] 0.4 mg 00 every 5 [facility] sublingual (five) Branch tablet minutes as needed for Chest pain. nitroglycer 2014-[id number] [facility] in 6[facility]29 Tab under ity of (NITROSTAT) 00:00: the tongue [place] 0.4 mg 00 every 5 [facility] sublingual (five) Branch tablet minutes as needed for Chest pain. nitroglycer Yes [id number] .4mg Place 1 [facility] in 6[facility]29 Tab under ity of (NITROSTAT) 00:00: the tongue [place] 0.4 mg 00 every 5 [facility] sublingual (five) Branch tablet minutes as needed for Chest pain. nitroglycer 2014-[id number] [facility] in 6[facility]29 Tab under ity of (NITROSTAT) 00:00: the tongue [place] 0.4 mg 00 every 5 [facility] sublingual (five) Branch tablet minutes as needed for Chest pain. nitroglycer 2014-[id number] [facility] in 6[facility]29 Tab under ity of (NITROSTAT) 00:00: the tongue [place] 0.4 mg 00 every 5 [facility] sublingual (five) Branch tablet minutes as needed for Chest pain. nitroglycer 2014-[id number] 1 [facility] in 6[facility]29 Tab under ity of (NITROSTAT) 00:00: the tongue [place] 0.4 mg 00 every 5 [facility] sublingual (five) Branch tablet minutes as needed for Chest pain. nitroglycer 2014-[id number] 1 [facility] in 6[facility]29 Tab under ity of (NITROSTAT) 00:00: the tongue [place] 0.4 mg 00 every 5 [facility] sublingual (five) Branch tablet minutes as needed for Chest pain. nitroglycer 2015-[id number] 1 [facility] in 6[facility]29 Tab under ity of (NITROSTAT) 00:00: the tongue [place] 0.4 mg 00 every 5 Medical sublingual (five) Branch tablet minutes as needed for Chest pain. nitroglycer 2015-[id number] 1 [facility] in 6[facility]29 Tab under ity of (NITROSTAT) 00:00: the tongue [place] 0.4 mg 00 every 5 [facility] sublingual (five) Branch tablet minutes as needed for Chest pain. nitroglycer 2014-[id number] [facility] in 6[facility]29 Tab under ity of (NITROSTAT) 00:00: the tongue [place] 0.4 mg 00 every 5 Medical sublingual (five) Branch tablet minutes as needed for Chest pain. nitroglycer 2014-[id number] 1 [facility] in 6[facility]29 Tab under ity of (NITROSTAT) 00:00: the tongue [place] 0.4 mg 00 every 5 [facility] sublingual (five) Branch tablet minutes as needed for Chest pain. nitroglycer 2014-[id number] [facility] in 6[facility]29 Tab under ity of (NITROSTAT) 00:00: the tongue [place] 0.4 mg 00 every 5 Medical sublingual (five) Branch tablet minutes as needed for Chest pain. nitroglycer 2014-[id number] 1 [facility] in 6[facility]29 Tab under ity of (NITROSTAT) 00:00: the tongue [place] 0.4 mg 00 every 5 Medical sublingual (five) Branch tablet minutes as needed for Chest pain. nitroglycer 2015-[id number] 1 [facility] in 6[facility]29 Tab under ity of (NITROSTAT) 00:00: the tongue [place] 0.4 mg 00 every 5 Medical sublingual (five) Branch tablet minutes as needed for Chest pain. nitroglycer 2015-[id number] 1 [facility] in 6[facility]29 Tab under ity of (NITROSTAT) 00:00: the tongue [place] 0.4 mg 00 every 5 Medical sublingual (five) Branch tablet minutes as needed for Chest pain. nitroglycer 2014-[id number] 1 [facility] in 6[facility]29 Tab under ity of (NITROSTAT) 00:00: the tongue [place] 0.4 mg 00 every 5 Medical sublingual (five) Branch tablet minutes as needed for Chest pain. nitroglycer 2015-[id number] 1 [facility] in 6[facility]29 Tab under ity of (NITROSTAT) 00:00: the tongue [place] 0.4 mg 00 every 5 Medical sublingual (five) Branch tablet minutes as needed for Chest pain. nitroglycer 2014-[id number] 1 [facility] in 6-29 Tab under ity of (NITROSTAT) 00:00: the tongue [place] 0.4 mg 00 every 5 Medical sublingual (five) Branch tablet minutes as needed for Chest pain. nitroglycer 2014-[id number] 1 [facility] in 6-29 Tab under ity of (NITROSTAT) 00:00: the tongue [place] 0.4 mg 00 every 5 Medical sublingual (five) Branch tablet minutes as needed for Chest pain. nitroglycer 2014-[id number] 1 [facility] in 6-29 Tab under ity of (NITROSTAT) 00:00: the tongue [place] 0.4 mg 00 every 5 Medical sublingual (five) Branch tablet minutes as needed for Chest pain. nitroglycer 2014-[id number] 1 [facility] in 6-29 Tab under ity of (NITROSTAT) 00:00: the tongue [place] 0.4 mg 00 every 5 Medical sublingual (five) Branch tablet minutes as needed for Chest pain. nitroglycer 2014-[id number] 1 [facility] in 6-29 Tab under ity of (NITROSTAT) 00:00: the tongue [place] 0.4 mg 00 every 5 Medical sublingual (five) Branch tablet minutes as needed for Chest pain. nitroglycer 2015-[id number] 1 [facility] in 6-29 Tab under ity of (NITROSTAT) 00:00: the tongue [place] 0.4 mg 00 every 5 Medical sublingual (five) Branch tablet minutes as needed for Chest pain. nitroglycer 2014-[id number] 1 [facility] in 6-29 Tab under ity of (NITROSTAT) 00:00: the tongue [place] 0.4 mg 00 every 5 Medical sublingual (five) Branch tablet minutes as needed for Chest pain. nitroglycer Yes [id number] .4mg Place 1 [facility] in 6-29 Tab under ity of (NITROSTAT) 00:00: the tongue [place] 0.4 mg 00 every 5 Medical sublingual (five) Branch tablet minutes as needed for Chest pain. aspirin 81 2013-08 Yes 81mg Take 1 Tab U nivers mg chewable 0-16 by mouth ity of tablet 00:00: daily. [place] [facility] aspirin 81 2013-08 Yes 81mg Take 1 Tab U nivers mg chewable 0-16 by mouth ity of tablet 00:00: daily. [place] [facility] aspirin 81 2013-08 Yes 81mg Take 1 Tab U nivers mg chewable 0-16 by mouth ity of tablet 00:00: daily. [place] [facility] aspirin 81 2013-08 Yes 81mg Take 1 Tab U nivers mg chewable 0-16 by mouth ity of tablet 00:00: daily. [place] [facility] aspirin 81 2013-08 Yes 81mg Take 1 Tab U nivers mg chewable 0-16 by mouth ity of tablet 00:00: daily. [place] [facility] aspirin 81 2013-08 Yes 81mg Take 1 Tab U nivers mg chewable 0-16 by mouth ity of tablet 00:00: daily. [place] [facility] aspirin 81 2013-08 Yes 81mg Take 1 Tab U nivers mg chewable 0-16 by mouth ity of tablet 00:00: daily. [place] [facility] aspirin 81 2013-08 Yes 81mg Take 1 Tab U nivers mg chewable 0-16 by mouth ity of tablet 00:00: daily. [place] [facility] aspirin 81 2013-08 Yes 81mg Take 1 Tab U nivers mg chewable 0-16 by mouth ity of tablet 00:00: daily. [place] [facility] aspirin 81 2013-08 Yes 81mg Take 1 Tab U nivers mg chewable 0-16 by mouth ity of tablet 00:00: daily. [place] [facility] aspirin 81 2013-08 Yes 81mg Take 1 Tab U nivers mg chewable 0-16 by mouth ity of tablet 00:00: daily. [place] [facility] aspirin 81 2013-08 Yes 81mg Take 1 Tab U nivers mg chewable 0-16 by mouth ity of tablet 00:00: daily. [place] 00 [facility] aspirin 81 2013-08 Yes 81mg Take 1 Tab U nivers mg chewable 0-16 by mouth ity of tablet 00:00: daily. [place] [facility] aspirin 81 2013-08 Yes 81mg Take 1 Tab U nivers mg chewable 0-16 by mouth ity of tablet 00:00: daily. [place] [facility] aspirin 81 2013-08 Yes 81mg Take 1 Tab U nivers mg chewable 0-16 by mouth ity of tablet 00:00: daily. [place] [facility] aspirin 81 2013-08 Yes 81mg Take 1 Tab U nivers mg chewable 0-16 by mouth ity of tablet 00:00: daily. [place] [facility] aspirin 81 2013-08- No 81mg Take 1 Tab Univers mg chewable 0-16 -31 by mouth ity of tablet 00:00: 00:00 daily. [place] 00 :00 [facility] Immunizations Ordered Filled Date Status Comments Source Immunization Name Immunization Name SARS-COV-2 COVID-19 2021-08-08 Completed [facility]J&J VACCINE 00:00:00 [facility] SARS-COV-2 COVID-19 2021-08-08 Completed [facility] rs[facility] of RADHA/J&J VACCINE 00:00:00 [facility] SARS-COV-2 COVID-19 2021-08-08 Completed [facility]ive rs[facility] of RADHA/J&J VACCINE 00:00:00 [facility] SARS-COV-2 COVID-19 2021-08-08 Completed [facility]ive rs[facility] of RADHA/J&J VACCINE 00:00:00 [facility] SARS-COV-2 COVID-19 2021-08-08 Completed [facility]ive rs[facility] of RADHA/J&J VACCINE 00:00:00 [facility] SARS-COV-2 COVID-19 2021-08-08 Completed [facility]ive rs[facility] of RADHA/J&J VACCINE 00:00:00 [facility] SARS-COV-2 COVID-19 2021-08-08 Completed [facility]ive rsity of RADHA/J&J VACCINE 00:00:00 [facility] SARS-COV-2 COVID-19 2021-08-08 Completed Unive rsity of RADHA/J&J VACCINE 00:00:00 [facility] SARS-COV-2 COVID-19 2021-08-08 Completed Unive rs[facility] of RADHA/J&J VACCINE 00:00:00 [facility] SARS-COV-2 COVID-19 2021-08-08 Completed Unive rsity of RADHA/J&J VACCINE 00:00:00 [facility] SARS-COV-2 COVID-19 2021-08-08 Completed Unive rsity of RADHA/J&J VACCINE 00:00:00 [facility] SARS-COV-2 COVID-19 2021-08-08 Completed Unive rsity of RADHA/J&J VACCINE 00:00:00 [facility] SARS-COV-2 COVID-19 2021-08-08 Completed Unive rsity of RADHA/J&J VACCINE 00:00:00 [facility] SARS-COV-2 COVID-19 2021-08-08 Completed Unive rsity of RADHA/J&J VACCINE 00:00:00 [facility] SARS-COV-2 COVID-19 2021-08-08 Completed Unive rsity of RADHA/J&J VACCINE 00:00:00 [facility] SARS-COV-2 COVID-19 2021-08-08 Completed Unive rsity of RADHA/J&J VACCINE 00:00:00 [facility] SARS-COV-2 COVID-19 2021-08-08 Completed Unive rsity of RADHA/J&J VACCINE 00:00:00 [facility] SARS-COV-2 COVID-19 2021-08-08 Completed Un[facility] rs[facility] of RADHA/J&J VACCINE 00:00:00 [facility] SARS-COV-2 COVID-19 2021-08-08 Completed Unive rsity of RADHA/J&J VACCINE 00:00:00 [facility] SARS-COV-2 COVID-19 2021-08-08 Completed Unive rsity of RADHA/J&J VACCINE 00:00:00 [facility] SARS-COV-2 COVID-19 2021-08-08 Completed Unive rsity of RADHA/J&J VACCINE 00:00:00 [facility] SARS-COV-2 COVID-19 2021-08-08 Completed Unive rsity of RADHA/J&J VACCINE 00:00:00 [facility] SARS-COV-2 COVID-19 2021-08-08 Completed Unive rsity of RADHA/J&J VACCINE 00:00:00 [facility] SARS-COV-2 COVID-19 2021-08-08 Completed Unive rs[facility] of RADHA/J&J VACCINE 00:00:00 [facility] SARS-COV-2 COVID-19 2021-08-08 Completed Unive rsity of RADHA/J&J VACCINE 00:00:00 [facility] SARS-COV-2 COVID-19 2021-08-08 Completed Unive rsity of RADHA/J&J VACCINE 00:00:00 [facility] SARS-COV-2 COVID-19 2021-08-08 Completed Unive rsity of RADHA/J&J VACCINE 00:00:00 [facility] SARS-COV-2 COVID-19 2021-08-08 Completed Unive rsity of RADHA/J&J VACCINE 00:00:00 [facility] SARS-COV-2 COVID-19 2021-08-08 Completed Unive rsity of RADHA/J&J VACCINE 00:00:00 [facility] SARS-COV-2 COVID-19 2021-08-08 Completed Unive rsity of RADHA/J&J VACCINE 00:00:00 [facility] SARS-COV-2 COVID-19 2021-08-08 Completed Unive rsity of RADHA/J&J VACCINE 00:00:00 [facility] SARS-COV-2 COVID-19 2021-08-08 Completed Unive rsity of RADHA/J&J VACCINE 00:00:00 [facility] SARS-COV-2 COVID-19 2021-08-08 Completed Unive rsity of RADHA/J&J VACCINE 00:00:00 [facility] SARS-COV-2 COVID-19 2021-08-08 Completed Unive rsity of RADHA/J&J VACCINE 00:00:00 [facility] SARS-COV-2 COVID-19 2021-08-08 Completed Unive rsity of RADHA/J&J VACCINE 00:00:00 [facility] SARS-COV-2 COVID-19 2021-08-08 Completed Unive rsity of RADHA/J&J VACCINE 00:00:00 [facility] SARS-COV-2 COVID-19 2021-08-08 Completed Unive rsity of RADHA/J&J VACCINE 00:00:00 [facility] SARS-COV-2 COVID-19 2021-08-08 Completed Unive rsity of RADHA/J&J VACCINE 00:00:00 [facility] SARS-COV-2 COVID-19 2021-08-08 Completed Unive rsity of RADHA/J&J VACCINE 00:00:00 [facility] SARS-COV-2 COVID-19 2021-08-08 Completed Unive rsity of RADHA/J&J VACCINE 00:00:00 [facility] SARS-COV-2 COVID-19 2021-08-08 Completed Unive rsity of RADHA/J&J VACCINE 00:00:00 [facility] SARS-COV-2 COVID-19 2021-08-08 Completed Unive rsity of RADHA/J&J VACCINE 00:00:00 [facility] SARS-COV-2 COVID-19 2021-08-08 Completed Unive rsity of RADHA/J&J VACCINE 00:00:00 [facility] SARS-COV-2 COVID-19 2021-08-08 Completed Unive rsity of RADHA/J&J VACCINE 00:00:00 [facility] SARS-COV-2 COVID-19 2021-08-08 Completed Unive rsity of RADHA/J&J VACCINE 00:00:00 [facility] SARS-COV-2 COVID-19 2021-08-08 Completed Unive rsity of RADHA/J&J VACCINE 00:00:00 [facility] SARS-COV-2 COVID-19 2021-08-08 Completed Unive rsity of RADHA/J&J VACCINE 00:00:00 [facility] SARS-COV-2 COVID-19 2021-08-08 Completed Unive rsity of RADHA/J&J VACCINE 00:00:00 [facility] SARS-COV-2 COVID-19 2021-08-08 Completed Unive rsity of RADHA/J&J VACCINE 00:00:00 [facility] SARS-COV-2 COVID-19 2021-08-08 Completed Unive rsity of RADHA/J&J VACCINE 00:00:00 [facility] SARS-COV-2 COVID-19 2021-08-08 Completed Unive rsity of RADHA/J&J VACCINE 00:00:00 [place] [facility] SARS-COV-2 COVID-19 2021-08-08 Completed Unive rsity of RADHA/J&J VACCINE 00:00:00 [facility] SARS-COV-2 COVID-19 2021-08-08 Completed Unive rsity of RADHA/J&J VACCINE 00:00:00 [facility] SARS-COV-2 COVID-19 2021-01-03 Completed Unive rsity of RADHA/J&J VACCINE 00:00:00 [facility] [place] [facility] SARS-COV-2 COVID-19 2021-01-03 Completed Unive rsity of RADHA/J&J VACCINE 00:00:00 [facility] SARS-COV-2 COVID-19 2021-01-03 Completed Unive rsity of RADHA/J&J VACCINE 00:00:00 [facility] [place] [facility] SARS-COV-2 COVID-19 2021-01-03 Completed Unive rsity of RADHA/J&J VACCINE 00:00:00 [facility] SARS-COV-2 COVID-19 2021-01-03 Completed Unive rsity of RADHA/J&J VACCINE 00:00:00 [facility] [place] [facility] SARS-COV-2 COVID-19 2021-01-03 Completed Unive rsity of RADHA/J&J VACCINE 00:00:00 [facility] SARS-COV-2 COVID-19 2021-01-03 Completed Unive rsity of RADHA/J&J VACCINE 00:00:00 [facility] SARS-COV-2 COVID-19 2021-01-03 Completed Unive rsity of RADHA/J&J VACCINE 00:00:00 [facility] [place] [facility] SARS-COV-2 COVID-19 2021-01-03 Completed Unive rsity of RDAHA/J&J VACCINE 00:00:00 [facility] SARS-COV-2 COVID-19 2021-01-03 Completed Unive rsity of RADHA/J&J VACCINE 00:00:00 [facility] [place] [facility] SARS-COV-2 COVID-19 2021-01-03 Completed Unive rsity of RADHA/J&J VACCINE 00:00:00 [facility] SARS-COV-2 COVID-19 2021-01-03 Completed Unive rsity of RADHA/J&J VACCINE 00:00:00 [facility] SARS-COV-2 COVID-19 2021-01-03 Completed Unive rsity of RADHA/J&J VACCINE 00:00:00 [facility] SARS-COV-2 COVID-19 2021-01-03 Completed Unive rsity of RADHA/J&J VACCINE 00:00:00 [facility] SARS-COV-2 COVID-19 2021-01-03 Completed Unive rsity of RADHA/J&J VACCINE 00:00:00 [facility] SARS-COV-2 COVID-19 2021-01-03 Completed Unive rsity of RADHA/J&J VACCINE 00:00:00 [facility] SARS-COV-2 COVID-19 2021-01-03 Completed Unive rsity of RADHA/J&J VACCINE 00:00:00 [facility] SARS-COV-2 COVID-19 2021-01-03 Completed Unive rsity of RADHA/J&J VACCINE 00:00:00 [facility] SARS-COV-2 COVID-19 2021-01-03 Completed Unive rsity of RADHA/J&J VACCINE 00:00:00 [facility] SARS-COV-2 COVID-19 2021-01-03 Completed Unive rsity of RADHA/J&J VACCINE 00:00:00 [facility] SARS-COV-2 COVID-19 2021-01-03 Completed Unive rsity of RADHA/J&J VACCINE 00:00:00 [facility] SARS-COV-2 COVID-19 2021-01-03 Completed Unive rsity of RADHA/J&J VACCINE 00:00:00 [facility] SARS-COV-2 COVID-19 2021-01-03 Completed Unive rsity of RADHA/J&J VACCINE 00:00:00 [facility] SARS-COV-2 COVID-19 2021-01-03 Completed Unive rsity of RADHA/J&J VACCINE 00:00:00 [facility] SARS-COV-2 COVID-19 2021-01-03 Completed Unive rsity of RADHA/J&J VACCINE 00:00:00 [facility] SARS-COV-2 COVID-19 2021-01-03 Completed Unive rsity of RADHA/J&J VACCINE 00:00:00 [facility] SARS-COV-2 COVID-19 2021-01-03 Completed Unive rsity of RADHA/J&J VACCINE 00:00:00 [facility] SARS-COV-2 COVID-19 2021-01-03 Completed Unive rsity of RADHA/J&J VACCINE 00:00:00 [facility] SARS-COV-2 COVID-19 2021-01-03 Completed Unive rsity of RADHA/J&J VACCINE 00:00:00 [facility] SARS-COV-2 COVID-19 2021-01-03 Completed Unive rsity of RADHA/J&J VACCINE 00:00:00 [facility] SARS-COV-2 COVID-19 2021-01-03 Completed Unive rsity of RADHA/J&J VACCINE 00:00:00 [facility] SARS-COV-2 COVID-19 2021-01-03 Completed Unive rsity of RADHA/J&J VACCINE 00:00:00 [facility] SARS-COV-2 COVID-19 2021-01-03 Completed Unive rsity of RADHA/J&J VACCINE 00:00:00 [facility] SARS-COV-2 COVID-19 2021-01-03 Completed Unive rsity of RADHA/J&J VACCINE 00:00:00 [facility] SARS-COV-2 COVID-19 2021-01-03 Completed Unive rsity of RADHA/J&J VACCINE 00:00:00 [facility] SARS-COV-2 COVID-19 2021-01-03 Completed Unive rsity of RADHA/J&J VACCINE 00:00:00 [facility] SARS-COV-2 COVID-19 2021-01-03 Completed Unive rsity of RADHA/J&J VACCINE 00:00:00 [facility] SARS-COV-2 COVID-19 2021-01-03 Completed Unive rsity of RADHA/J&J VACCINE 00:00:00 [facility] SARS-COV-2 COVID-19 2021-01-03 Completed Unive rsity of RADHA/J&J VACCINE 00:00:00 [facility] SARS-COV-2 COVID-19 2021-01-03 Completed [facility]ive rs[facility] of RADHA/J&J VACCINE 00:00:00 [facility] SARS-COV-2 COVID-19 2021-01-03 Completed [facility] rs[facility] of RADHA/J&J VACCINE 00:00:00 [facility] SARS-COV-2 COVID-19 2021-01-03 Completed [facility] rs[facility] of RADHA/J&J VACCINE 00:00:00 [facility] SARS-COV-2 COVID-19 2021-01-03 Completed [facility] rs[facility] of RADHA/J&J VACCINE 00:00:00 [facility] SARS-COV-2 COVID-19 2021-01-03 Completed [facility] rs[facility] of RADHA/J&J VACCINE 00:00:00 [facility] SARS-COV-2 COVID-19 2021-01-03 Completed [facility]ive rs[facility] of RADHA/J&J VACCINE 00:00:00 [facility] SARS-COV-2 COVID-19 2021-01-03 Completed [facility] rs[facility] of RADHA/J&J VACCINE 00:00:00 [facility] SARS-COV-2 COVID-19 2021-01-03 Completed [facility] rs[facility] of RADHA/J&J VACCINE 00:00:00 [facility] SARS-COV-2 COVID-19 2021-01-03 Completed [facility] rs[facility] of RADHA/J&J VACCINE 00:00:00 [facility] SARS-COV-2 COVID-19 2021-01-03 Completed [facility] rs[facility] of RADHA/J&J VACCINE 00:00:00 [facility] SARS-COV-2 COVID-19 2021-01-03 Completed [facility] rs[facility] of RADHA/J&J VACCINE 00:00:00 [facility] SARS-COV-2 COVID-19 2021-01-03 Completed [facility] of RADHA/J&J VACCINE 00:00:00 [facility] SARS-COV-2 COVID-19 2021-01-03 Completed [facility] rs[facility] of RADHA/J&J VACCINE 00:00:00 [facility] Influenza Virus 2019-08-14 Completed [facility] .5 mL 00:00:00 [facility] IM 6+ MO Branch Influenza Virus 2019-08-14 Completed [facility] .5 mL 00:00:00 [facility] 6[facility] Influenza Virus 2019-08-14 Completed [facility] .5 mL 00:00:00 [facility] 6+ [facility] Influenza Virus 2019-08-14 Completed [facility] .5 mL 00:00:00 [facility] 6[facility] Influenza Virus 2019-08-14 Completed [facility] .5 mL 00:00:00 [facility] 6+ [facility] Influenza Virus 2019-08-14 Completed [facility] .5 mL 00:00:00 [facility] 6+ [facility] Influenza Virus 2019-08-14 Completed [facility] .5 mL 00:00:00 [facility] 6+ [facility] Influenza Virus 2019-08-14 Completed [facility] .5 mL 00:00:00 [facility] 6+ MO [facility] Influenza Virus 2019-08-14 Completed [facility] .5 mL 00:00:00 [facility] 6+ [facility] Influenza Virus 2019-08-14 Completed [facility] .5 mL 00:00:00 [facility] 6+ [facility] Influenza Virus 2019-08-14 Completed [facility] .5 mL 00:00:00 [facility] 6+ [facility] Influenza Virus 2019-08-14 Completed [facility] .5 mL 00:00:00 [facility] 6+ [facility] Influenza Virus 2019-08-14 Completed [facility] .5 mL 00:00:00 [facility] 6+ [facility] Influenza Virus 2019-08-14 Completed [facility] .5 mL 00:00:00 [facility] 6+ [facility] Influenza Virus 2019-08-14 Completed [facility] .5 mL 00:00:00 [facility] 6+ MO [facility] Influenza Virus 2019-08-14 Completed [facility] .5 mL 00:00:00 [facility] 6+ [facility] (FLUZONE/FLULAVAL/F LUARIX) Influenza Virus 2019-08-14 Completed [facility] .5 mL 00:00:00 [facility] 6+ MO [facility] (FLUZONE/FLULAVAL/F LUARIX) Influenza Virus 2019-08-14 Completed [facility] .5 mL 00:00:00 [facility] 6+ [facility] (FLUZONE/FLULAVAL/F LUARIX) Influenza Virus 2019-08-14 Completed [facility] .5 mL 00:00:00 [facility] 6+ [facility] (FLUZONE/FLULAVAL/F LUARIX) Influenza Virus 2019-08-14 Completed [facility] .5 mL 00:00:00 [facility] 6+ MO [facility] (FLUZONE/FLULAVAL/F LUARIX) Influenza Virus 2019-08-14 Completed [facility] .5 mL 00:00:00 [facility] 6+ [facility] (FLUZONE/FLULAVAL/F LUARIX) Influenza Virus 2019-08-14 Completed [facility] .5 mL 00:00:00 [facility] 6+ [facility] (FLUZONE/FLULAVAL/F LUARIX) Influenza Virus 2019-08-14 Completed [facility] .5 mL 00:00:00 [facility] 6+ MO [facility] Influenza Virus 2019-08-14 Completed [facility] .5 mL 00:00:00 [facility] 6+ MO [facility] Influenza Virus 2019-08-14 Completed [facility] .5 mL 00:00:00 [facility] 6+ [facility] Influenza Virus 2019-08-14 Completed [facility] .5 mL 00:00:00 [facility] 6+ MO [facility] Influenza Virus 2019-08-14 Completed [facility] .5 mL 00:00:00 [facility] 6+ [facility] Influenza Virus 2019-08-14 Completed [facility] .5 mL 00:00:00 [facility] 6+ [facility] Influenza Virus 2019-08-14 Completed [facility] .5 mL 00:00:00 [facility] 6+ [facility] Influenza Virus 2019-08-14 Completed [facility] .5 mL 00:00:00 [facility] 6+ [facility] Influenza Virus 2019-08-14 Completed [facility] .5 mL 00:00:00 [facility] 6+ MO [facility] Influenza Virus 2019-08-14 Completed [facility] .5 mL 00:00:00 [facility] 6+ [facility] Influenza Virus 2019-08-14 Completed [facility] .5 mL 00:00:00 [facility] 6+ [facility] Influenza Virus 2019-08-14 Completed [facility] .5 mL 00:00:00 [facility] 6+ MO [facility] Influenza Virus 2019-08-14 Completed [facility] .5 mL 00:00:00 [facility] 6+ MO [facility] Influenza Virus 2019-08-14 Completed [facility] .5 mL 00:00:00 [facility] 6+ MO [facility] Influenza Virus 2019-08-14 Completed [facility] .5 mL 00:00:00 [facility] 6+ MO [facility] Influenza Virus 2019-08-14 Completed [facility] .5 mL 00:00:00 [facility] 6+ MO [facility] Influenza Virus 2019-08-14 Completed [facility] .5 mL 00:00:00 [facility] 6+ MO [facility] Influenza Virus 2019-08-14 Completed [facility] .5 mL 00:00:00 [facility] 6+ MO [facility] Influenza Virus 2019-08-14 Completed [facility] .5 mL 00:00:00 [facility] 6+ MO [facility] Influenza Virus 2019-08-14 Completed [facility] .5 mL 00:00:00 [facility] 6+ MO [facility] Influenza Virus 2019-08-14 Completed [facility] .5 mL 00:00:00 [facility] 6+ MO [facility] Influenza Virus 2019-08-14 Completed [facility] .5 mL 00:00:00 [facility] 6+ [facility] Influenza Virus 2019-08-14 Completed [facility] .5 mL 00:00:00 [facility] 6+ MO [facility] Influenza Virus 2019-08-14 Completed [facility] .5 mL 00:00:00 [facility] 6+ [facility] Influenza Virus 2019-08-14 Completed [facility] .5 mL 00:00:00 [facility] 6+ MO [facility] Influenza Virus 2019-08-14 Completed [facility] .5 mL 00:00:00 [facility] 6+ MO [facility] Influenza Virus 2019-08-14 Completed [facility] .5 mL 00:00:00 [facility] 6+ MO [facility] Influenza Virus 2019-08-14 Completed [facility] .5 mL 00:00:00 [facility] 6+ [facility] Influenza Virus 2019-08-14 Completed [facility] .5 mL 00:00:00 [facility] 6+ [facility] Influenza Virus 2019-08-14 Completed [facility] .5 mL 00:00:00 [facility] 6+ [facility] Influenza Virus 2019-08-14 Completed [facility] .5 mL 00:00:00 [facility] IM 6+ [facility] Influenza Virus 2014-06-07 Completed [facility] IM 3+ 00:00:00 [facility] Influenza Virus 2014-06-07 Completed [facility] IM 3+ 00:00:00 [facility] Influenza Virus 2014-06-07 Completed [facility] IM 3+ 00:00:00 [facility] Influenza Virus 2014-06-07 Completed [facility] IM 3+ 00:00:00 [facility] Influenza Virus 2014-06-07 Completed [facility] IM 3+ 00:00:00 [facility] Influenza Virus 2014-06-07 Completed [facility] IM 3+ 00:00:00 [facility] Influenza Virus 2014-06-07 Completed [facility] IM 3+ 00:00:00 [facility] Influenza Virus 2014-06-07 Completed [facility] IM 3+ 00:00:00 [facility] Influenza Virus 2014-06-07 Completed [facility] IM 3+ 00:00:00 [facility] Influenza Virus 2014-06-07 Completed [facility] IM 3+ 00:00:00 [facility] Influenza Virus 2014-06-07 Completed [facility] IM 3+ 00:00:00 [facility] Influenza Virus 2014-06-07 Completed [facility] IM 3+ 00:00:00 [facility] Influenza Virus 2014-06-07 Completed [facility] IM 3+ 00:00:00 [facility] Influenza Virus 2014-06-07 Completed [facility] IM 3+ 00:00:00 [facility] Influenza Virus 2014-06-07 Completed [facility] IM 3+ 00:00:00 [facility] Influenza Virus 2014-06-07 Completed [facility] IM 3+ 00:00:00 [facility] Influenza Virus 2014-06-07 Completed [facility] IM 3+ 00:00:00 [facility] Influenza Virus 2014-06-07 Completed [facility] IM 3+ 00:00:00 [facility] Influenza Virus 2014-06-07 Completed [facility] IM 3+ 00:00:00 [facility] Influenza Virus 2014-06-07 Completed [facility] IM 3+ 00:00:00 [facility] Influenza Virus 2014-06-07 Completed [facility] IM 3+ 00:00:00 [facility] Influenza Virus 2014-06-07 Completed [facility] IM 3+ 00:00:00 [facility] Influenza Virus 2014-06-07 Completed [facility] IM 3+ 00:00:00 [facility] Influenza Virus 2014-06-07 Completed [facility] IM 3+ 00:00:00 [facility] Influenza Virus 2014-06-07 Completed [facility] IM 3+ 00:00:00 [facility] Influenza Virus 2014-06-07 Completed [facility] IM 3+ 00:00:00 [facility] Influenza Virus 2014-06-07 Completed [facility] IM 3+ 00:00:00 [facility] Influenza Virus 2014-06-07 Completed [facility] IM 3+ 00:00:00 [facility] Influenza Virus 2014-06-07 Completed [facility] IM 3+ 00:00:00 [facility] Influenza Virus 2014-06-07 Completed [facility] IM 3+ 00:00:00 [facility] Influenza Virus 2014-06-07 Completed [facility] IM 3+ 00:00:00 [facility] Influenza Virus 2014-06-07 Completed [facility] IM 3+ 00:00:00 [facility] Influenza Virus 2014-06-07 Completed [facility] IM 3+ 00:00:00 [facility] Influenza Virus 2014-06-07 Completed [facility] of [facility] IM 3+ 00:00:00 [facility] Influenza Virus 2014-06-07 Completed [facility] of [facility] IM 3+ 00:00:00 [facility] Influenza Virus 2014-06-07 Completed [facility] of [facility] IM 3+ 00:00:00 [facility] Influenza Virus 2014-06-07 Completed [facility] of [facility] IM 3+ 00:00:00 [facility] Influenza Virus 2014-06-07 Completed [facility] IM 3+ 00:00:00 [facility] Influenza Virus 2014-06-07 Completed [facility] IM 3+ 00:00:00 [facility] Influenza Virus 2014-06-07 Completed [facility] IM 3+ 00:00:00 [facility] Influenza Virus 2014-06-07 Completed [facility] IM 3+ 00:00:00 [facility] Influenza Virus 2014-06-07 Completed [facility] IM 3+ 00:00:00 [facility] Influenza Virus 2014-06-07 Completed [facility] IM 3+ 00:00:00 [facility] Influenza Virus 2014-06-07 Completed [facility] IM 3+ 00:00:00 [facility] Influenza Virus 2014-06-07 Completed [facility] IM 3+ 00:00:00 [facility] Influenza Virus 2014-06-07 Completed [facility] of [facility] IM 3+ 00:00:00 [facility] Influenza Virus 2014-06-07 Completed [facility] IM 3+ 00:00:00 [facility] Influenza Virus 2014-06-07 Completed [facility] IM 3+ 00:00:00 [facility] Influenza Virus 2014-06-07 Completed [facility] IM 3+ 00:00:00 [facility] Influenza Virus 2014-06-07 Completed [facility] IM 3+ 00:00:00 [facility] Influenza Virus 2014-06-07 Completed [facility] IM 3+ 00:00:00 [facility] Influenza Virus 2014-06-07 Completed [facility] IM 3+ 00:00:00 [facility] Influenza Virus 2014-06-07 Completed [facility] IM 3+ 00:00:00 [facility] Influenza Virus Unknown Completed [facility] IM 3+ [facility] Influenza Virus Unknown Completed [facility] .5 mL [facility] 6+ MO Branch (FLUZONE/FLULAVAL/F LUARIX) SARS-COV-2 COVID-19 Unknown Completed Unive rsity of RADHA/J&J VACCINE [facility] SARS-COV-2 COVID-19 Unknown Completed [facility]ive rsity of RADHA/J&J VACCINE [facility] Influenza Virus Unknown Completed [facility] IM 3+ [facility] YRS Branch Influenza Virus Unknown Completed [facility] .5 mL [facility] 6+ MO Branch (FLUZONE/FLULAVAL/F LUARIX) SARS-COV-2 COVID-19 Unknown Completed [facility]ive rsity of RADHA/J&J VACCINE [facility] SARS-COV-2 COVID-19 Unknown Completed [facility] rsity of RADHA/J&J VACCINE [facility] Influenza Virus Unknown Completed [facility] IM 3+ [facility] YRS Branch Influenza Virus Unknown Completed [facility] .5 mL [facility] 6+ MO Branch (FLUZONE/FLULAVAL/F LUARIX) SARS-COV-2 COVID-19 Unknown Completed [facility]ive rsity of RADHA/J&J VACCINE [facility] SARS-COV-2 COVID-19 Unknown Completed [facility]ive rsity of RADHA/J&J VACCINE [facility] Influenza Virus Unknown Completed [facility] IM 3+ [facility] YRS Branch Influenza Virus Unknown Completed [facility] .5 mL [facility] 6+ [facility] (FLUZONE/FLULAVAL/F LUARIX) SARS-COV-2 COVID-19 Unknown Completed [facility]ive rsity of RADHA/J&J VACCINE [facility] SARS-COV-2 COVID-19 Unknown Completed [facility]ive rsity of RADHA/J&J VACCINE [facility] Influenza Virus Unknown Completed [facility] IM 3+ [facility] YRS Branch Influenza Virus Unknown Completed [facility] .5 mL [facility] 6+ [facility] (FLUZONE/FLULAVAL/F LUARIX) SARS-COV-2 COVID-19 Unknown Completed [facility]ive rsity of RADHA/J&J VACCINE [facility] SARS-COV-2 COVID-19 Unknown Completed [facility] of RADHA/J&J VACCINE [facility] Vital Signs Vital Name Observation Time Observation Value Comments Source Systolic blood 2023-05-02 16:04:00 163 mm[Hg] Univer [facility] of pressure [facility] Diastolic blood 2023-05-02 16:04:00 103 mm[Hg] [facility]ive rsity of pressure [facility] Heart rate 2023-05-02 15:59:00 65 /min [facility] Body temperature 2023-05-02 15:59:00 36.56 Ritika [facility] Respiratory rate 2023-05-02 15:59:00 20 /min [facility] Body weight 2023-05-02 15:59:00 76.204 kg [facility] BMI 2023-05-02 15:59:00 24.11 kg/m2 [facility] Oxygen saturation in 2023-05-02 15:59:00 98 /min [facility] Arterial blood by [facility] Pulse oximetry Branch Systolic blood 2023-05-02 15:19:00 168 mm[Hg] [facility] of pressure [facility] Diastolic blood 2023-05-02 15:19:00 116 mm[Hg] [facility] of pressure [facility] Heart rate 2023-05-02 15:19:00 65 /min [facility] Body temperature 2023-05-02 15:15:00 36.56 Ritika [facility] Respiratory rate 2023-05-02 15:15:00 20 /min [facility] Body weight 2023-05-02 15:15:00 76.204 kg [facility] BMI 2023-05-02 15:15:00 24.11 kg/m2 [facility] Oxygen saturation in 2023-05-02 15:15:00 98 /min [facility] Arterial blood by [facility] Pulse oximetry Branch Systolic blood 2023-04-03 18:45:00 122 mm[Hg] [facility] of pressure [facility] Diastolic blood 2023-04-03 18:45:00 84 mm[Hg] [facility] of pressure [facility] Heart rate 2023-04-03 18:44:00 75 /min [facility] Body temperature 2023-04-03 18:44:00 36.33 Ritika [facility] Respiratory rate 2023-04-03 18:44:00 16 /min [facility] Body height 2023-04-03 18:44:00 177.8 cm [facility] Body weight 2023-04-03 18:44:00 76.204 kg [facility] BMI 2023-04-03 18:44:00 24.11 kg/m2 [facility] Oxygen saturation in 2023-04-03 18:44:00 97 /min [facility] P[facility]xim[facility] Systolic blood 2023-03-26 15:31:00 141 mm[Hg] [facility] pressure [facility] Diastolic blood 2023-03-26 15:31:00 104 mm[Hg] [facility] of pressure [facility] Heart rate 2023-03-26 15:31:00 63 /min [facility] Body height 2023-03-26 15:31:00 177.8 cm [facility] Body weight 2023-03-26 15:31:00 77.202 kg [facility] BMI 2023-03-26 15:31:00 24.42 kg/m2 [facility] Oxygen saturation in 2023-03-26 15:31:00 99 /min [facility] Ar[facility]ial blood by [facility] [employer] [facility] Pulse oximetry Branch Systolic blood 2023-02-19 18:01:00 135 mm[Hg] [facility] pressure [facility] Diastolic blood 2023-02-19 18:01:00 94 mm[Hg] [facility] of pressure [facility] Heart rate 2023-02-19 18:01:00 73 /min [facility] Body height 2023-02-19 18:01:00 177.8 cm [facility] Body weight 2023-02-19 18:01:00 78.79 kg [facility] BMI 2023-02-19 18:01:00 24.92 kg/m2 [facility] Systolic blood 2023-01-22 14:40:00 133 mm[Hg] [facility] Diastolic blood 2023-01-22 14:40:00 96 mm[Hg] [facility] of pressure [facility] Heart rate 2023-01-22 14:40:00 74 /min [facility] Oxygen saturation in 2023-01-22 14:40:00 98 /min [facility] Ar[facility]ial blood by [facility] [employer] [facility] Pulse oximetry Branch Body temperature 2023-01-22 14:38:00 36.94 Ritika [facility] Respiratory rate 2023-01-22 14:38:00 18 /min [facility] Body height 2023-01-22 14:38:00 177.8 cm [facility] Body weight 2023-01-22 14:38:00 77.52 kg [facility] BMI 2023-01-22 14:38:00 24.52 kg/m2 [facility] Systolic blood 2023-01-21 16:03:00 128 mm[Hg] [facility] pressure [facility] Diastolic blood 2023-01-21 16:03:00 93 mm[Hg] [facility] of pressure [facility] Heart rate 2023-01-21 16:03:00 79 /min [facility] Body height 2023-01-21 16:03:00 177.8 cm [facility] Body weight 2023-01-21 16:03:00 76.159 kg [facility] BMI 2023-01-21 16:03:00 24.09 kg/m2 [facility] Oxygen saturation in 2023-01-21 16:03:00 98 /min [facility] Arterial blood by [employer] Pulse oximetry Branch Systolic blood 2023-01-06 16:03:00 146 mm[Hg] [facility]iver [facility]ity of pressure [facility] Diastolic blood 2023-01-06 16:03:00 96 mm[Hg] [facility] rsity of pressure [facility] Heart rate 2023-01-06 16:01:00 70 /min [facility] Body temperature 2023-01-06 16:01:00 36.67 Ritika [facility] Respiratory rate 2023-01-06 16:01:00 16 /min [facility] Body height 2023-01-06 16:01:00 177.8 cm [facility] Body weight 2023-01-06 16:01:00 78.245 kg [facility] BMI 2023-01-06 16:01:00 24.75 kg/m2 [facility] Oxygen saturation in 2023-01-06 16:01:00 99 /min [facility] Arterial blood by [facility] Pulse oximetry Branch Systolic blood 2022-12-27 14:10:00 145 mm[Hg] [facility]iver [facility]ity of pressure [facility] Diastolic blood 2022-12-27 14:10:00 97 mm[Hg] [facility] of pressure [facility] Heart rate 2022-12-27 14:10:00 81 /min [facility] Respiratory rate 2022-12-27 14:10:00 19 /min [facility] Oxygen saturation in 2022-12-27 14:10:00 97 /min [facility] Arterial blood by [facility] Pulse oximetry Branch Body temperature 2022-12-27 13:40:00 36.67 Ritika [facility] Body height 2022-12-20 15:00:00 177.8 cm [facility] Body weight 2022-12-20 15:00:00 77.111 kg [facility] BMI 2022-12-20 15:00:00 24.39 kg/m2 [facility] Heart rate 2022-12-27 13:52:00 83 /min [facility] Respiratory rate 2022-12-27 13:52:00 18 /min [facility] Oxygen saturation in 2022-12-27 13:52:00 98 /min [facility] Arterial blood by [facility] Pulse oximetry Branch Systolic blood 2022-12-27 13:50:00 128 mm[Hg] [facility]iver [facility]ity of pressure [facility] Diastolic blood 2022-12-27 13:50:00 96 mm[Hg] [facility]ive rsity of pressure [facility] Body temperature 2022-12-27 13:40:00 36.67 Ritika [facility] Body height 2022-12-20 15:00:00 177.8 cm [facility] Body weight 2022-12-20 15:00:00 77.111 kg [facility] BMI 2022-12-20 15:00:00 24.39 kg/m2 [facility] Systolic blood 2022-12-09 15:59:00 166 mm[Hg] [facility] of pressure [facility] Diastolic blood 2022-12-09 15:59:00 124 mm[Hg] [facility]ive rsity of pressure [facility] Heart rate 2022-12-09 15:58:00 88 /min [facility] Respiratory rate 2022-12-09 15:58:00 18 /min [facility] Body weight 2022-12-09 15:58:00 77.565 kg [facility] BMI 2022-12-09 15:58:00 24.54 kg/m2 [facility] Oxygen saturation in 2022-12-09 15:58:00 98 /min [facility] Arterial blood by [facility]al Pulse oximetry Branch Systolic blood 2022-11-20 21:37:00 140 mm[Hg] Univer sity of [facility] Diastolic blood 2022-11-20 21:37:00 90 mm[Hg] Unive rsity of pressure [facility] Heart rate 2022-11-20 21:36:00 76 /min [facility] Respiratory rate 2022-11-20 21:36:00 18 /min Univ ers[facility] Body height 2022-11-20 21:36:00 177.8 cm [facility] Body weight 2022-11-20 21:36:00 75.297 kg [facility] BMI 2022-11-20 21:36:00 23.82 kg/m2 [facility] Oxygen saturation in 2022-11-20 21:36:00 97 /min University of Arterial blood by [facility] Pulse oximetry Branch Systolic blood 2022-11-11 14:14:00 164 mm[Hg] Univer sity of pressure [facility] Diastolic blood 2022-11-11 14:14:00 116 mm[Hg] Unive rsity of [facility] Heart rate 2022-11-11 14:12:00 70 /min [facility] Body temperature 2022-11-11 14:12:00 36.39 Ritika Univ ers[facility] Body height 2022-11-11 14:12:00 177.8 cm [facility] Body weight 2022-11-11 14:12:00 75.751 kg [facility] BMI 2022-11-11 14:12:00 23.96 kg/m2 [facility] Oxygen saturation in 2022-11-11 14:12:00 98 /min [facility] Pulse oximetry Branch Systolic blood 2022-10-28 18:51:00 164 mm[Hg] Univer [facility]ity of [facility] Diastolic blood 2022-10-28 18:51:00 139 mm[Hg] Unive rsity of pressure [facility] Heart rate 2022-10-28 18:07:00 127 /min [facility] Body temperature 2022-10-28 18:07:00 36.56 Ritika [facility] Respiratory rate 2022-10-28 18:07:00 18 /min Univ [facility] Body height 2022-10-28 18:07:00 177.8 cm [facility] Body weight 2022-10-28 18:07:00 74.39 kg [facility] BMI 2022-10-28 18:07:00 23.53 kg/m2 [facility] Oxygen saturation in 2022-10-28 18:07:00 99 /min [facility] by [facility] Pulse oximetry Branch Systolic blood 2022-10-23 02:00:00 147 mm[Hg] Univer [facility] Diastolic blood 2022-10-23 02:00:00 107 mm[Hg] Unive rsity of [facility] Heart rate 2022-10-23 02:00:00 66 /min [facility] Respiratory rate 2022-10-23 02:00:00 24 /min Univ [facility] Oxygen saturation in 2022-10-23 02:00:00 94 /min [facility] P[facility] oxim[facility] Body temperature 2022-10-23 00:15:00 36.61 Ritika Univ [facility] Body height 2022-10-23 00:15:00 177.8 cm [facility] Body weight 2022-10-23 00:15:00 77.111 kg [facility] BMI 2022-10-23 00:15:00 24.39 kg/m2 [facility] Systolic blood 2022-04-17 15:53:00 173 mm[Hg] [facility] [place] Diastolic blood 2022-04-17 15:53:00 109 mm[Hg] Unive rsity of pressure [facility] Heart rate 2022-04-17 15:53:00 93 /min Universi ty of [facility] Body temperature 2022-04-17 15:53:00 37.06 Ritika Univ ersity of [facility] Respiratory rate 2022-04-17 15:53:00 20 /min Univ ersity of [facility] Body height 2022-04-17 15:53:00 177.8 cm Universi ty of [facility] Body weight 2022-04-17 15:53:00 81.647 kg Universi ty [facility] BMI 2022-04-17 15:53:00 25.83 kg/m2 Universi ty [facility] Oxygen saturation in 2022-04-17 15:53:00 99 /min University of Arterial blood by [facility] Pulse oximetry Branch Respiratory rate 2022-03-29 23:38:49 16 /min Univ ersity of [facility] Systolic blood 2022-03-29 23:38:05 163 mm[Hg] Univer sity of pressure [facility] Diastolic blood 2022-03-29 23:38:05 111 mm[Hg] Unive rsity of [facility] Heart rate 2022-03-29 23:38:05 86 /min Universi ty [facility] Body temperature 2022-03-29 23:38:05 37.17 Ritika Univ ersity of [facility] Oxygen saturation in 2022-03-29 23:38:05 94 /min University of Arterial blood by [facility] Pulse oximetry Branch Body height 2022-03-29 23:24:00 180.3 cm Universi ty of [facility] Body weight 2022-03-29 23:24:00 81.647 kg Universi ty [facility] BMI 2022-03-29 23:24:00 25[facility]10 [facility] Procedures Procedure Date / Time Performing Clinician Source Performed US ABDOMEN COMPLETE 2023-02-24 15:21:32 Matias [facility] CBC WITH DIFF 2023-01-28 13:03:00 Matias Ron [facility] PROTHROMBIN TIME / INR 2023-01-28 13:03:00 Matias Ron [facility] ACTIVATED PARTIAL 2023-01-28 13:03:00 Matias Ron [facility] THRMPLAS MARIBEL [facility] XR HIPS 3 VW RIGHT 2023-01-06 16:41:00 Naina Land [facility] COLONOSCOPY 2022-12-27 12:42:00 Virginia Tamayo [facility] COLONOSCOPY (ENDO) 2022-12-27 12:23:09 Ruiz Marin [facility] COLONOSCOPY (ENDO) 2022-12-27 12:23:09 Ruiz Marin [facility] DAY SURGERY - ADC 2022-12-27 05:01:00 Doctor Unassigned, [facility] Name Medical [place] MEDICATION CORRESPONDENCE 2022-11-20 05:01:00 Doctor Unashukri, [facility] DISCLOSURE AND CONSENT, 2022-11-11 05:01:00 Doctor Unassigned, [facility] MEDICAL AND SURGICAL [facility] PROCEDURES DISCLOSURE AND CONSENT, 2022-11-11 05:01:00 Doctor Unassigned, [facility] MEDICAL AND SURGICAL [facility] PROCEDURES CT LUNG CANCER SCREENING 2022-11-06 18:55:00 Ruiz Marin [facility] ASSIGNMENT OF BENEFITS 2022-11-06 18:37:02 Doctor Unassigned, [facility] FREE T4 2022-10-28 19:04:00 Ruiz Marin [facility] THYROID STIMULATING 2022-10-28 19:04:00 Ruiz Marin [facility] HORMONE [facility] COMP. METABOLIC PANEL 2022-10-28 19:04:00 Ruiz Marin [facility] ([id number]) [facility] LIPID PANEL ([id number])(TOTAL 2022-10-28 19:04:00 Ruiz Marin [facility] CHOLESTEROL, [facility] TRIGLYCERIDES, HDL) CBC WITH DIFF 2022-10-28 19:04:00 Ruiz Marin [facility] GLYCOSYLATED HEMOGLOBIN 2022-10-28 19:04:00 Ruiz Marin [facility] (A1C) Medical Branch FREE T3 2022-10-28 19:04:00 Ruiz Marin [facility] PROSTATIC SPECIFIC 2022-10-28 19:04:00 Ruiz Marin [facility] ANTIGEN [facility] Branch HCV ANTIBODY 2022-10-28 19:04:00 Ruiz Marin [facility] HEPATITIS C VIRUS (HCV) 2022-10-28 19:04:00 Ruiz Marin [facility] BY QUANTITATIVE NAAT Medical [facility] VITAMIN D, 25-OH 2022-10-28 19:04:00 Ruiz Marin [facility] CT CERVICAL SPINE WO 2022-10-23 01:25:[address] [facility] CONTRAST Medical Branch CT HEAD WO CONTRAST 2022-10-23 01:25:55 Pavel León [facility] CT LUMBAR SPINE WO 2022-10-23 01:25:55 Pavel León [facility] CONTRAST [facility] Branch CT THORACIC SPINE WO 2022-10-23 01:25:[address] [facility] CONTRAST Medical [place] CONSENT/REFUSAL FOR 2022-04-17 15:49:12 Doctor Unasidneyigned, [facility] DIAGNOSIS AND TREATMENT [facility] CONSENT/REFUSAL FOR 2022-04-08 15:04:52 Doctor Unassbenjamin, [facility] DIAGNOSIS AND TREATMENT [facility] SARS-COV-2 COVID-19 2021-08-08 16:17:48 Doctor Agatha [facility] VACCINE,0.5ML,IM [facility] (RADHA/J&J) Encounters Start End Encounter Admission Attending Care Care Encounter Source Date/Time Date/Time Type Type Clinicians Facility Department ID 2023-05-16 2023-05-16 Outpatient Dalila RON NMDARRYL [facility] [id number] Univers 11:40:00 11:40:00 MATIAS chaney [facility] 2023-05-07 2023-05-07 [facility]phone [facility] [id number] Univers 00:00:00 00:00:00 Mer GARCÍA 350.1.13.10 it[place] [id number] Ok dical NAL 059 [facility] 2023-05-06 2023-05-06 Telephone Sherif Gladys [facility] 1.2.840.114 [id number] Univers 00:00:00 00:00:00 SPECIALTY 350.1.13.10 ity of [facility] [place].2.7.2.[place] [id number] Ok daltondane MCGUIRE 072 [facility] 2023-05-02 2023-05-02 [facility] [id number] Univers 11:00:00 11:17:04 MATIAS shiv [facility] 2023-05-02 2023-05-02 Office [facility] 1.2.840.114 [id number] Univers 11:00:00 11:17:04 Visit Matias GARCÍA 350.1.13.10 i ty [place] [id number] Ok dicdane NAL 044 [facility] 2023-05-02 2023-05-02 Office [facility] 1.2.840.114 [id number] Univers 10:20:00 11:16:27 Visit Matias GARCÍA 350.1.13.10 i ty [place] [id number] Ok daltondane NAL 044 [facility] 2023-05-01 2023-05-01 [facility] [id number] Univers 14:00:00 14:00:00 MATIAS chaney [facility] 2023-04-30 2023-04-30 Telephone [facility] 1.2.900.927 [id number] Univers 00:00:00 00:00:00 Mer GARCÍA 350.1.13.10 ity of [facility] 4.2.7.2.[place] [id number] Ok dical NAL 059 [facility] 2023-04-22 2023-04-22 Refill [facility] 1.2.840.114 [id number] Univers 00:00:00 00:00:00 Qiasabine GARCÍA 350.1.13.10 ity of [facility] 4.2.7.2.[place] [id number] Ok dical NAL 059 [facility] 2023-04-10 2023-04-10 Telephone Sherif Gladys [facility] 1.2.840.114 [id number] Univers 00:00:00 00:00:00 SPECIALTY 350.1.13.10 ity of [facility] 4.2.7.2.[place] AT [id number] Ok dicdane VICTORY 072 [facility] 2023-04-03 2023-04-03 Outpatient R CLAUS [facility] [id number] Univers 13:40:00 14:30:42 MATIAS itgeoffrey [facility] 2023-04-03 2023-04-03 Office [facility] 1.2.840.114 [id number] Univers 13:40:00 14:30:42 Visit Matias GARCÍA 350.1.13.10 i ty of [facility] 4.2.7.2.[place] [id number] Ok dical NAL 044 [facility] 2023-03-26 2023-03-26 [facility] [id number] Univers 10:00:00 10:52:58 MER ity o f [facility] 2023-03-26 2023-03-26 Office [facility] 1.2.840.114 [id number] Univers 10:00:00 10:52:58 Visit Mer GARCÍA 350.1.13.10 ity of [facility] 4.2.7.2.[place] [id number] Ok dical NAL 059 [facility] 2023-03-26 2023-03-26 Telephone [facility] 1.2.945.430 [id number] Univers 00:00:00 00:00:00 Mer GARCÍA 350.1.13.10 ity of [place] [id number] Ok dic[address] 2023-02-24 2023-02-24 [facility] [id number] Univers 09:28:18 23:59:00 MATIAS chaney [facility] 2023-02-24 2023-02-24 [facility] 1.2.840.114 [id number] Univers 09:28:18 23:59:00 Encounter Matias GARCÍA 350.1.13.10 [place] 4.2.7.2.[place] [id number] [facility] [address] [place] 2023-02-24 2023-02-24 Telephone [facility] 1.2.114.713 [id number] Univers 00:00:00 00:00:00 Mer GARCÍA 350.1.13.10 it[place] of [place] [id number] Ok dicok NAL [address] [place] [address] 2023-02-21 2023-02-21 [facility]patient [facility] [id number] Univers 07:55:08 23:59:00 ADELFONANCI quezaday o f [facility] 2023-02-19 2023-02-19 Office [facility] 1.2.186.063 [id number] Univers 13:15:00 13:15:00 Visit Rodriguez [facility] 350.1.13.10 it y [facility] 4.2.7.2.686 Philippe as SARKIS?BLEA [id number] [facility] [address] [place] MEDICAL OFFICE [facility] 2023-02-19 2023-02-19 [facility]patient [facility] [id number] Univers 13:15:00 13:09:41 RODRIGUEZ chaney [facility] 2023-01-28 2023-01-28 Garnett Mechanic Kandi, [place] [facility] 1.2.8 40.114 [id number] Univers 08:00:00 08:15:00 Visit Matias Ron 350.1.13.10 ity of [facility] 4.2.7.2.[place] [id number] Ok daltondane NAL 353 [facility] 2023-01-28 2023-01-28 Outpatient [facility] [id number] Univers 08:00:00 08:00:00 MATIAS chaney [facility] 2023-01-22 2023-01-22 Outpatient [facility] [id number] Univers 10:00:00 10:03:35 MER quezaday o f [facility] 2023-01-22 2023-01-22 Office [facility] 1.2.840.114 [id number] Univers 10:00:00 10:03:35 Visit Mer GOMEZFREDO 350.1.13.10 ity of [facility] 4.2.7.2.[place] [id number] Ok daltondane BRO 059 [facility] 2023-01-21 2023-01-21 Outpatient [facility] [id number] Univers 11:00:00 11:48:52 MATIAS chaney [facility] 2023-01-21 2023-01-21 Office [facility] 1.2.840.114 [id number] Univers 11:00:00 11:48:52 Visit Matias GOMEZFREDO 350.1.13.10 i ty of [facility] 4.2.7.2.[place] [id number] Ok daltondane NAL 044 [facility] 2023-01-13 2023-01-13 [facility] 1.2.277.466 [id number] Univers 00:00:00 00:00:00 Reenu HEALTH 350.1.13.10 it y of [place] 4.2.7.2.686 Philippe as SARKIS?BLEA [id number] Ok dical KNEY 370 [facility] OFFICE [facility] 2023-01-06 2023-01-06 [facility] 1.2.840.114 [id number] Univers 11:22:08 23:59:00 Encounter Reenu HEALTH 350.1.13.10 ity of [place] 4.2.7.2.686 Philippe as SARKIS?BLEA [id number] Ok licha DEAN [address] [place] MEDICAL OFFICE [facility] 2023-01-06 2023-01-06 Outpatient [facility] [id number] Univers 11:00:00 11:30:34 REENU ity of [facility] 2023-01-06 2023-01-06 [facility] 1.2.840.11 [id number] Univers 11:00:00 11:30:34 Care Unknown, Attending HEALTH 350.1.13.10 ity of [place] 4.2.7.2.686 Philippe as SARKIS?BLEA [id number] Ok daltondane DEAN [address] [place] MEDICAL OFFICE [facility] 2022-12-27 2022-12-27 Outpatient R [facility] BAB[facility] [id number] Univers 06:58:00 09:20:00 [place] ity of [facility] 2022-12-27 2022-12-27 [facility] 1.2.840.114 [id number] Univers 06:58:00 09:20:00 Encounter Virginia GARCÍA 350.1.13.10 it[place] of [place] SURGICAL [id number] [facility] [address] [place] 2022-12-27 2022-12-27 Surgery [facility] 1.2.433.169 [id number] Univers 07:45:00 08:52:00 Virginia GARCÍA 350.1.13.10 i ty of [place].2.7.2.[place] SURGICAL [id number] [facility] 020 Branch 2022-12-27 2022-12-27 Orders Doctor OLGA 1.2.840.114 [id number] Univers 00:00:00 00:00:00 Only Unassigned, CHOCO 350.1.13.10 ity of [place] [facility] 4.2.7.2.686 Philippe as [id number] [facility] [address] [place] 2022-12-20 2022-12-20 Telephone [facility] 1.2.840.114 [id number] Univers 00:00:00 00:00:00 Virginia GOMEZFREDO 350.1.13.10 i ty of [place] [id number] Ok dical NAL 188 [facility] 2022-12-09 2022-12-09 Outpatient R ERNA MARINAddisonRia [facility] [id number] Univers 10:30:00 11:23:54 [facility]22-12-09 2022-12-09 Office [facility] 1.2.840.114 [id number] Univers 10:30:00 11:23:54 Visit Wyattryannria GARCÍA 350.1.13.10 ity of [place] 4.[place].2.[place] [id number] Ok dical NAL 044 [facility] 2022-11-25 2022-11-25 Outpatient R ANGELIKA MARINVIELKA [facility] [id number] Univers 15:00:00 15:00:00 RUIZ MARIN [facility] 2022-11-20 2022-11-20 Outpatient [facility] [id number] Univers 16:00:00 16:57:24 MATIAS [facility] 2022-11-20 2022-11-20 Office [facility] 1.2.840.114 [id number] Univers 16:00:00 16:57:24 Visit Matias GARCÍA 350.1.13.10 i ty of [place].2.[place] [id number] Ok dical NAL 044 [facility] 2022-11-20 2022-11-20 Orders Doctor OLGA 1.2.840.114 [id number] Replaced by [facility] Univers 00:00:00 00:00:00 Only Unassigned, CHOCO 350.1.13.10 ity of [place] [facility] 4.2.7.2.686 Philippe as [id number] [address] 2022-11-15 2022-11-15 [facility]phone [facility] 1.2.840.114 [id number] Univers 00:00:00 00:00:00 Ruiz GARCÍA 350.1.13.10 ity of [facility] 4.2.7.2.[place] [id number] Ok dical NAL 044 [facility] 2022-11-15 2022-11-15 Telephone [facility] 1.2.840.114 [id number] Univers 00:00:00 00:00:00 Ruiz GARCÍA 350.1.13.10 ity of [facility] 4.2.7.2.[place] [id number] Ok dical NAL 044 [facility] 2022-11-11 2022-11-11 Outpatient R RONI [facility] [id number] Univers 09:30:00 10:12:01 VIRGINIA chaney [facility] 2022-11-11 2022-11-11 Office Roni [facility] 1.2.612.772 [id number] Univers 09:30:00 10:12:01 Visit Virginia GOMEZFREDO 350.1.13.10 i ty of [facility] 4.2.7.2.[place] [id number] [facility] 188 [facility] 2022-11-11 2022-11-11 Prep For [facility] 1.2.840.114 [id number] Univers 00:00:00 00:00:00 Surgery Virginia GARCÍA 350.1.13.10 i ty of [facility] 4.2.7.2.[place] [id number] Ok dicdane CRABTREE 188 [facility] 2022-11-07 2022-11-07 Outpatient R RONI [facility] [id number] Univers 14:00:00 14:00:00 VIR[place] chaney [facility] 2022-11-06 2022-11-06 Outpatient R RUIZ MARIN [facility] [id number] Univers 13:38:11 23:59:00 RUIZ MARIN [facility] 2022-11-06 2022-11-06 [facility] 1.2.417.642 [id number] Univers 13:38:11 23:59:00 Encounter Ernaaddisonria GARCÍA 350.1.13.10 ity of [facility] 4.2.7.2.686 [place] ALDA [id number] [facility] [address] 2022-11-06 2022-11-06 Orders Doctor OLGA 1.2.840.114 [id number] Univers 00:00:00 00:00:00 Only Unassigned, CHOCO 350.1.13.10 ity of [place] [facility] 4.2.7.2.686 Philippe as [id number] [facility] 00[address] 2022-11-04 2022-11-04 Letter Minda, [facility] 1.2.840.114 [id number] Univers 00:00:00 00:00:00 (Out) General HEALTH 350.1.13.10 it y of Cardiology [place] 4.2.7.2.686 [place] [id number] [facility] MEDICAL [address] OFFICE BUILDING 2022-10-29 2022-10-29 Telephone José Miguel [facility] 1.2.840.114 [id number] Univers 00:00:00 00:00:00 Ruiz GARCÍA 350.1.13.10 ity of [facility] 4.2.7.2.[place] [id number] Ok licha CRABTREE 044 [facility] 2022-10-28 2022-10-28 Garnett Mechanic 2, Adc Lab [facility] 1.2.840.114 [id number] Univers 14:00:00 14:15:16 Visit Ruiz Marin 350.1.13.1 0 ity of [place].2.[place] [id number] Ok dicdane NAL 353 [facility] 2022-10-28 2022-10-28 Outpatient R RUIZ MARIN [facility] [id number] Univers 13:00:00 13:53:45 RUIZ MARIN ity of [facility] 2022-10-28 2022-10-28 Office José Miguel [facility] 1.2.840.114 [id number] Univers 13:00:00 13:53:45 Visit Ruiz GARCÍA 350.1.13.10 ity of [facility] 4.2.7.2.686 [facility] PROFESSIO [id number] [address] 2022-10-22 2022-10-22 Emergency X [facility] ERT [id number] Univers 18:14:00 21:31:00 PAVEL chaney [facility] 2022-10-22 2022-10-22 Emergency [facility] 1.2.516.180 [id number] Univers 18:14:00 21:31:00 Pavel GARCÍA 350.1.13.10 i ty of [place] 4.2.7.2.686 [facility] [id number] [address] 2022-08-20 2022-08-20 Outpatient R RUIZ MARIN [facility] [id number] Univers 14:00:00 14:00:00 RUIZ MARIN [facility] 2022-04-17 2022-04-17 Emergency X ANGELINA [facility] ERT [id number] Univers 10:54:00 13:05:00 MINDI [facility] 2022-04-17 2022-04-17 Emergency [facility] 1.2.016.362 [id number] Univers 10:54:00 13:05:00 Mindi GARCÍA 350.1.13.10 i ty of [place] 4.2.7.2.686 [facility] [id number] [address] 2022-04-08 2022-04-08 Emergency X [facility] ERT [id number] Univers 10:12:00 10:53:00 ERIC [facility] 2022-04-08 2022-04-08 Emergency [facility] 1.2.840.114 [id number] Univers 10:12:00 10:53:00 Eric GARCÍA 350.1.13.10 i ty of [facility] 4.2.7.2.686 [facility] [id number] [address] 2022-03-29 2022-03-29 Emergency X JAYES, [facility] ERT [id number] Univers 18:25:00 18:59:00 BOBBY [facility] 2022-03-29 2022-03-29 Emergency Ghazala [facility] [id number] [facility] 18:25:00 18:59:00 Bobby GARCÍA 350.1.13.10 i ty [facility] 4.2.7.2.686 [place] [facility] [id number] [facility] [address] [place] 2021-08-08 2021-08-08 Imm/Inj Nurse, Adc Pob Immunization [facility] 1.2.840.114 [id number] [facility] 09:50:00 09:50:00 Visit Javed Fox 350.1.13 .10 ity [facility] 4.2.7.2.686 [facility] [id number] Ok dical NAL 421 [facility] 2021-08-08 2021-08-08 Outpatient R RUDDY [facility] [id number] Univers 09:50:00 09:49:09 JAVED chaney [facility] 2019-08-13 2019-08-14 [facility] [id number] [facility] 12:18:09 10:47:00 BETTY [facility] Results Test Description Test Time Test Comments Results Result Comments Source aPTT 2023-01-28 13:25:53 Test Item Value Reference Range Interpretation Comme nts APTT Patient (test code = 28 See_Comment [ Automated message] The 3173-2) system which ge nerated this result tra nsmitted reference range : 23 - 38 Seconds. The re ference range was not u sed to interpret this result as normal/abnormal . JONAS (test code = JONAS) The [facility] patient population mean normal value for aPTT is 30 seconds. Lab Interpretation (test Normal code = 33490-1) [facility] [id number] 13:23:51 Test Item Value Reference Range Interpretation Comments PROTIME PATIENT (test 13.4 See_Comment [Auto mated message] code = 5964-2) The system ich generated this result transmitted ref erence range: 12.0 - 1 4.7 Seconds. The re ference range was not u sed to interpret this result as normal/abnor mal. INR (test code = 6301-6) 1.1 Nor mal INR <1.1; Warfarin Therap eutic range 2.0 to 3. 0 or 2.5 to 3.5, dep ending upon the indica tions. Lab Interpretation (test Normal code = 91529-0) [facility]
[2023-05-09] MEDS ORDERED: NA CHLORIDE 0.9% 1,000 ML ONE (15:52)
--- NOTE | 2023-05-09 16:04 | RAD REPORT ---
EXAM DESCRIPTION: CT - Head Brain Wo Cont - 05/09/2023 3:46 pm CLINICAL HISTORY: Syncope COMPARISON: none TECHNIQUE: Computed axial tomography of the head was obtained. IV contrast was not requested. All CT scans are performed using dose optimization technique as appropriate and may include automated exposure control or mA/KV adjustment according to patient size. FINDINGS: An intracranial bleed is not seen The ventricles are normal in caliber No significant hypodense areas within the brain visualized No extra-axial fluid collection is noted. Fluid within the sinuses/ mastoids is not seen IMPRESSION: No acute intracranial abnormality is seen If patient's symptoms persist MRI of the brain would be recommended
--- NOTE | 2023-05-09 16:22 | RAD REPORT ---
EXAM DESCRIPTION: Cirilo Single View05/09/2023 4:02 pm CLINICAL HISTORY: Syncope COMPARISON: 2020 FINDINGS: Chronic elevation left hemidiaphragm The lungs appear clear of acute infiltrate. The heart is probably borderline enlarged IMPRESSION: No acute abnormalities displayed
[2023-05-09 17:02] LABS: Protime INR 1.09
[2023-05-09 17:13] LABS: Specific Gravity 1.027 (1.005-1.030); Urine Bacteria <20 /HPF (<20); Urine Bilirubin NEGATIVE (Negative); Urine Blood Negative (Negative); Urine Clarity Turbid (Clear); Urine Color Yellow (Yellow); Urine Glucose NEGATIVE (Negative); Urine Mucus Slight /HPF (None Seen); Urine Protein 1+ (Negative); Urine RBC <5 /HPF (None Seen); Urine Urobilinogen 1+ (Normal)
[2023-05-09 17:34] LABS: Albumin 3.3 g/dL (3.4-5.0); Bilirubin Direct 0.2 mg/dL (0-0.2); Bilirubin Indirect, Calculated 0.2 mg/dL (0.2-0.8); Bilirubin Total 0.4 mg/dL (0.2-1.0); Magnesium 1.7 mg/dL (1.6-2.4); Potassium 3.5 mEq/L (3.5-5.1); Protein, Total 7.4 g/dL (6.4-8.2)
[2023-05-09 17:37] LABS: Troponin High Sensitivity 85.5 pg/mL (<58.9)
--- NOTE | 2023-05-09 18:39 | RAD REPORT ---
EXAM DESCRIPTION: CT - Chest For Pe Angio - 05/09/2023 6:16 pm CLINICAL HISTORY: Syncope COMPARISON: None. TECHNIQUE: Dynamically enhanced axial 3 mm thick images of the chest were obtained during administra tion of 100 mL Isovue 370 IV contrast. Coronal and oblique reconstruction images were generated and r eviewed. Exam utilizes a protocol for optimal evaluation of pulmonary arterial tree. Maximum intensity projections 3D imaging was utilized All CT scans are performed using dose optimization technique as appropriate and may include automated exposure control or mA/KV adjustment according to patient size. FINDINGS: A pulmonary embolus is not seen. A thoracic aortic aneurysm is not noted. A pleural effusion is not seen. A pericardial effusion is not seen. A lung consolidation is not present. Mild left lower lobe scarring. Mild to moderate COPD Prominent left ventricular hypertrophy IMPRESSION: Negative for a pulmonary embolism.
[2023-05-09 18:51] LABS: Absolute Lymphocytes (CBC) 1.5 K/uL (0.7-4.9); Hematocrit 42.8 % (39.6-49.0); Lymphocytes % 26.4 % (15.3-44.8); MCV 89.2 fL (80-100); MPV 9.6 fL (7.6-11.3); Platelets 159 thou/uL (152-406)
--- NOTE | 2023-05-09 18:55 | ER ---
[facility]urse's Notes [facility] Name: Kyle Gomez Age: 57 yrs Sex: Male : 1965 Arrival Date: 05/09/2023 Time: 15:21 Bed 16 Private MD: Diagnosis: Syncope Near Presentation: 05/09 15:42 Chief complaint: EMS states: the patient was observed to have 2 near syncopal episodes ap3 while visiting family at a senior care. patient reports starting a new blood pressure medication 3 days ago and having some teeth extracted yesterday. Coronavirus screen: At this time, the client does not indicate any symptoms associated with coronavirus-19. Ebola Screen: No symptoms or risks identified at this time. Initial Sepsis Screen: Does the patient meet any 2 criteria? No. Patient's initial sepsis screen is negative. Does the patient have a suspected source of infection? No. Patient's initial sepsis screen is negative. Risk Assessment: Do you want to hurt yourself or someone else? Patient reports no desire to harm self or others. Onset of symptoms was May 09, 2023. 15:42 Method Of Arrival: EMS: [facility] ap3 15:42 Acuity: NISHANT 3 ap3 15:46 Care prior to arrival: Medication(s) given: LR IV initiated. 20 GA, in the left ap3 antecubital area. Triage Assessment: 15:45 General: Appears in no apparent distress. Behavior is calm, cooperative, appropriate ap3 for age. Pain: Denies pain. Neuro: Level of Consciousness is awake, alert, obeys commands, Oriented to person, place, time, situation, Reports two near syncopal episodes prior to arrival . Cardiovascular: Patient's skin is warm and dry. Respiratory: Airway is patent Respiratory effort is even, unlabored, Respiratory pattern is regular, symmetrical. Historical: - Allergies: 15:45 No Known Allergies; ap3 - Home Meds: 15:45 Lisinopril Oral [Active]; ap3 - PMHx: 15:45 coronary disease; Hypertensive disorder; ap3 - PSHx: 15:45 cardiac stents; ap3 - Social history:: Smoking status: unknown. - Family history:: not pertinent. - Hospitalizations: : No recent hospitalization is reported. Screenin:46 [facility] ED Fall Risk Assessment (Adult) History of falling in the last 3 months, ap3 including since admission No falls in past 3 months (0 pts) Confusion or Disorientation No (0 pts) Intoxicated or Sedated No (0 pts) Impaired Gait No (0 pts) Mobility Assist Device Used No (0 pt) Altered Elimination No (0 pt). Abuse screen: Denies threats or abuse. Nutritional screening: No deficits noted. Tuberculosis screening: No symptoms or risk factors identified. Vital Signs: 15:42 BP 103 / 80; Pulse 72; Resp 18; Pulse Ox 96% on R/A; ap3 16:40 BP 99 / 81; Pulse 68; Pulse Ox 98% on R/A; ap3 17:16 BP 133 / 101; Pulse 65; Resp 18; Pulse Ox 100% ; ap3 19:57 BP 141 / 93; Pulse 59; Pulse Ox 97% on R/A; ap3 ED Course: 15:32 Patient arrived in ED. rn 15:32 Dyllan Valdovinos MD is Attending Physician. rn 15:33 Santa Vitale RN is Primary Nurse. ap3 15:45 Triage completed. ap3 15:46 CT Head Brain wo Cont In Process Unspecified. EDMS 15:47 Arm band placed on left wrist. ap3 15:47 Patient has correct armband on for positive identification. Bed in low position. Call ap3 light in reach. Side rails up X2. environmental monitoring technician on. Pulse ox on. NIBP on. 16:04 Chest Single View XRAY In Process Unspecified. EDMS 17:33 Anjel Tomlin PA is PHCP. cp 18:18 CT Chest For PE Angio In Process Unspecified. EDMS 18:53 Gerry Rubio is Hospitalizing Provider. cp 19:56 No provider procedures requiring assistance completed. Patient admitted, IV remains in ap3 place. 19:57 Provided Education on: need for admission. ap3 Administered Medications: 15:59 Drug: NS 0.9% IV 1000 ml IV at 1000 ml once Route: IV; Rate: 1000 ml; Site: left ap3 antecubital; 19:58 Follow up: IV Status: Completed infusion ap3 19:42 Drug: Aspirin PO Chewable Tablet 324 mg PO once; 81 mg tablets x 4 Route: PO; ap3 19:57 Follow up: Response: No adverse reaction ap3 Medication: 15:47 VIS not applicable for this client. ap3 Outcome: 18:54 Decision to Hospitalize by Provider. cp 19:56 Admitted to Med/surg room 207, ap3 19:56 Condition: good 20:57 Patient left the ED. ap3 Signatures: Dispatcher [employer] EDMS Dyllan Valdovinos MD MD rn Anjel Tomlin PA PA cp Prokisch, Amanda, RN RN ap3
--- NOTE | 2023-05-09 18:55 | EDPHYS ---
Physician Documentation [facility] Name: Kyle Gomez Age: 57 yrs Sex: Male : 1965 Arrival Date: 05/09/2023 Time: 15:21 Bed 16 Private MD: ED Physician Dyllan Valdovinos HPI: 05/09 15:36 This 57 yrs old Black Male presents to ER via Unassigned with complaints of near rn syncope. 15:36 The patient has experienced near-syncope. Onset: The symptoms/episode began/occurred rn just prior to arrival. Duration: This was a single episode. Associated injury: The patient did not suffer any apparent associated injury. Current symptoms: Currently, the patient is not experiencing any symptoms. The patient has experienced a previous episode. The patient has been recently seen by a physician:. Patient reports feeling fine then got lightheaded and nearly passed out. Caught himself on the ground and did not lose consciousness.. Historical: - Allergies: 15:45 No Known Allergies; ap3 - Home Meds: 15:45 Lisinopril Oral [Active]; ap3 - PMHx: 15:45 coronary disease; Hypertensive disorder; ap3 - PSHx: 15:45 cardiac stents; ap3 - Social history:: Smoking status: unknown. - Family history:: not pertinent. - Hospitalizations: : No recent hospitalization is reported. ROS: 15:38 Constitutional: Negative for fever, chills, and weight loss, Eyes: Negative for injury, rn pain, redness, and discharge, Neck: Negative for injury, pain, and swelling, Cardiovascular: Negative for chest pain, palpitations, and edema, Respiratory: Negative for shortness of breath, cough, wheezing, and pleuritic chest pain, Abdomen/GI: Negative for abdominal pain, nausea, vomiting, diarrhea, and constipation, Back: Negative for injury and pain, MS/Extremity: Negative for injury and deformity, Skin: Negative for injury, rash, and discoloration, Neuro: Negative for headache, weakness, numbness, tingling, and seizure, Exam: 15:38 Constitutional: This is a well developed, well nourished patient who is awake, alert, rn and in no acute distress. 15:38 Head/Face: Normocephalic, atraumatic. Eyes: Pupils equal round and reactive to light, extra-ocular motions intact. ENT: Dry mucous membranes Neck: Trachea midline, no masses palpated, and no cervical lymphadenopathy. Cardiovascular: Regular rate and rhythm. No pulse deficits. Respiratory: No increased work of breathing, no retractions or nasal flaring. Abdomen/GI: Soft, non-tender Skin: Warm, dry MS/ Extremity: Pulses equal, no cyanosis. Neuro: Awake and alert, GCS 15, oriented to person, place, time, and situation. Cranial nerves II-XII grossly intact. Motor strength 5/5 in all extremities. Sensory grossly intact. 16:46 ECG was reviewed by the Attending Physician. rn Vital Signs: 15:42 BP 103 / 80; Pulse 72; Resp 18; Pulse Ox 96% on R/A; ap3 16:40 BP 99 / 81; Pulse 68; Pulse Ox 98% on R/A; ap3 17:16 BP 133 / 101; Pulse 65; Resp 18; Pulse Ox 100% ; ap3 19:57 BP 141 / 93; Pulse 59; Pulse Ox 97% on R/A; ap3 MDM: 15:32 Patient medically screened. rn 16:38 ED course: Patient started on new blood pressure medication a few days ago. Blood rn pressure improving with IV fluids.. 17:23 ED course: Patient still asymptomatic. Evaluated again and has no complaints. rn Specifically continues to deny focal neurological deficits/chest pain/shortness of breath/abdominal pain/back pain. States completely back to normal and feels fine. Had a long discussion and told him if evaluation here is negative needs to hold his blood pressure medication that was recently started and follow-up with PCP for further blood pressure medication management.. 20:05 Data reviewed: vital signs, nurses notes, lab test result(s), EKG, radiologic studies, cp CT scan, plain films. 20:05 Differential Diagnosis: cardiac arrhythmia, drug effect, GI bleed. Consideration of cp Admission/Observation Patient was admitted/placed on observation. I considered the following discharge prescriptions or medication management in the emergency department Medications were administered in the Emergency Department. See MAR. Care significantly affected by the following chronic conditions: Hypertension. 05/09 15:33 Order name: Basic Metabolic Panel; Complete Time: 17:42 rn 05/09 20:02 Interpretation: Normal except: CL 108; GFR 70. cp 05/09 15:33 Order name: CBC with Diff; Complete Time: 20:02 05/09 20:02 Interpretation: Reviewed. 05/09 15:33 Order name: Hepatic Function; Complete Time: 17:42 rn 05/09 15:33 Order name: Magnesium; Complete Time: 17:42 05/09 15:33 Order name: Protime (+inr); Complete Time: 17:08 05/09 15:33 Order name: Ptt, Activated; Complete Time: 17:08 05/09 15:33 Order name: Troponin High Sensitivity; Complete Time: 17:42 rn 05/09 18:42 Interpretation: Abnormal: Reviewed. 05/09 15:33 Order name: Urinalysis w/ reflexes; Complete Time: 17:17 rn 05/09 18:49 Order name: CBC Smear Scan; Complete Time: 20:02 EDMN 05/09 19:16 Order name: Manual Differential; Complete Time: 20:02 EDMN 05/09 20:02 Interpretation: Normal except: EOS 4. 05/09 15:33 Order name: CT Head Brain wo Cont; Complete Time: 16:32 rn 05/09 15:33 Order name: Chest Single View XRAY; Complete Time: 16:32 rn 05/09 17:31 Order name: CT Chest For PE Angio; Complete Time: 18:40 rn 05/09 15:33 Order name: EKG; Complete Time: 15:33 rn 05/09 16:01 Order name: Diet Finger Food; Complete Time: 16:01 ap3 05/09 15:33 Order name: Cardiac monitoring; Complete Time: 15:33 rn 05/09 15:33 Order name: EKG - Nurse/Tech; Complete Time: 15:33 rn 05/09 15:33 Order name: IV Saline Lock; Complete Time: 15:33 rn 05/09 15:33 Order name: Labs collected and sent; Complete Time: 15:59 rn 05/09 15:33 Order name: NPO; Complete Time: 15:33 rn 05/09 15:33 Order name: O2 Per Protocol; Complete Time: 15:34 rn 05/09 15:33 Order name: O2 Sat Monitoring; Complete Time: 15:34 rn 05/09 17:26 Order name: Labs - recollect needed: recollect labs hemolyzed per Lisa; Complete eb Time: 17:38 05/09 17:45 Order name: Labs - recollect needed: recollect the recollect/ tubes not collected eb correctly; Complete Time: 18:33 EC:46 Rate is 68 beats/min. Rhythm is regular. Left axis deviation noted. QRS is positive in rn lead I and negative in lead aVF. QRS interval is normal. QT interval is normal. No Q waves. T waves are Normal. No ST changes noted. Clinical impression: 1st degree heart block. Interpreted by me. Reviewed by me. Administered Medications: 15:59 Drug: NS 0.9% IV 1000 ml IV at 1000 ml once Route: IV; Rate: 1000 ml; Site: left ap3 antecubital; 19:58 Follow up: IV Status: Completed infusion ap3 19:42 Drug: Aspirin PO Chewable Tablet 324 mg PO once; 81 mg tablets x 4 Route: PO; ap3 19:57 Follow up: Response: No adverse reaction ap3 Disposition: 05/10 18:38 Co-signature as Attending Physician, Dyllan Valdovinos MD I reviewed the patient's care rn provided by the Advanced Practice Provider and agree with the diagnosis and treatment plan. Disposition Summary: 05/09/23 18:54 Hospitalization Ordered Notes: Hospitalization Status: Observation cp Provider: Gerry Rubio cp Location: Telemetry/MedSurg (observation) cp Condition: Stable cp Problem: new cp Symptoms: have improved cp Bed/Room Type: Standard Room Assignment: 207(05/09/23 19:31) Diagnosis - Syncope Near cp Forms: - Medication Reconciliation Form cp - SBAR form cp - Leadership Thank You Letter cp Signatures: Dispatcher [employer] Jelly Pascal RN RN mw Nieto, Roman, MD MD rn Page, Corey, PA PA cp Prokisch, Amanda, RN RN ap3 Ema Christopher Corrections: (The following items were deleted from the chart) 05/09 19:31 18:54 cp mw
--- NOTE | 2023-05-09 19:00 | P.HP ---
Certification for Inpatient Patient admitted to: Observation With expected LOS: <2 Midnights Patient will require the following post-hospital care: None Practitioner: I am a practitioner with admitting privileges, knowledge of patient current condition, hospital course, and medical plan of care. Services: Services provided to patient in accordance with Admission requirements found in Title 42 Section 412.3 of the Code of Federal Regulations Patient History Date of Service: 05/10/23 Reason for admission: syncope History of Present Illness: 57-year-old male with a past medical history of hypertension, coronary artery disease presents to the emergency room for syncope. He reports symptoms occurred just prior to arrival. He denies any current symptoms. He reports feeling lightheaded, nearly passed out, he denies hitting head, denies loss of consciousness. He reports having 4 recent teeth extraction, poor p.o. intake due to pain with eating, taking Tylenol 3's, poor p.o. diet. He reports additional blood pressure medications by primary care physician, however he does not know the name of his meds. Denies chest pain, abdominal pain, fever chills, recent infection, Dysuria. Plan to admit for near syncope, alcohol use, tobacco use blood pressures on arrival. BP 99 / 81; Pulse 68; Pulse Ox 98% on R/A; EKG 6 Rate is 68 beats/min. Rhythm is regular. Left axis deviation noted. QRS is positive in lead I and negative in lead aVF. QRS interval is normal. QT interval is normal. No Q waves. T waves are Normal. No ST changes noted. Clinical impression: 1st degree heart block. Laboratory evaluation elevated troponin 85.5, sodium potassium normal, UA 5-10 hyaline casts, chest x-ray no acute abnormalities. Head CT no acute abnormality CT of the chest abdomen, negative for pulmonary embolism Allergies No Known Allergies Allergy (Unverified 04/28/21 03:02) Home Medications: Amlodipine Besylate [Norvasc] 10 mg PO DAILY #30 tablet 04/30/21 Aspirin [Aspirin EC 81 MG] 81 mg PO DAILY #90 tablet. 04/30/21 Atorvastatin Calcium [Lipitor] 40 mg PO BEDTIME #30 tablet 04/30/21 Hydralazine HCl 10 mg PO TID #90 tablet 04/30/21 - Past Medical/Surgical History Diabetic: No -: CAD -: HTN -: cocaine and alcohol abuse -: hip replacement - Family History Mother -: Heart disease, Hypertension, Stroke Father -: Heart disease, Hypertension, Lung disease, Stroke Brother -: Heart disease, Stroke - Social History Alcohol use: Yes CD- Drugs: Yes Caffeine use: No Review of Systems 10-point ROS is otherwise unremarkable Physical Examination - Physical Exam General: Alert, In no apparent distress, Oriented x3, Other (Right upper tooth pain from teeth extraction) HEENT: Atraumatic, Normocephalic, PERRLA Neck: Supple, 2+ carotid pulse no bruit, JVD not distended Respiratory: Clear to auscultation bilaterally, Normal air movement Cardiovascular: No edema, Normal pulses, Regular rate/rhythm Capillary refill: <2 Seconds Gastrointestinal: Normal bowel sounds, Soft and benign Musculoskeletal: No clubbing, No swelling Neurological: Normal gait, Normal speech, Normal strength at 5/5 x4 extr - Studies Laboratory Data (last 24 hrs) 05/09/23 05/09/23 16:41 16:41 PT 12.0 INR 1.09 APTT 19.8 L Sodium 139 Potassium 3.5 BUN 7 Creatinine 1.20 Glucose 94 Magnesium 1.7 Total Bilirubin 0.4 AST 22 ALT 21 Alkaline Phosphatase 73 Assessment and Plan - Plan Assessment plan Syncope Hypotension Elevated troponin Recent teeth extraction DVT prophylaxis Alcohol use Tobacco use History of hypertension History of cocaine use Assessment plan Syncope Hypotension Elevated troponin-Lovenox 1 mg/kg History of recent of hypertension recently started on additional p.o. blood pressure medications unknown name-as needed antihypertensives Cardiology consult, IV fluids Trend troponins, orthostatic vital signs Plan to admit for near syncope, alcohol use, tobacco use blood pressures on arrival. BP 99 / 81; Pulse 68; Pulse Ox 98% on R/A; EKG 6 Rate is 68 beats/min. Rhythm is regular. Left axis deviation noted. QRS is positive in lead I and negative in lead aVF. QRS interval is normal. QT interval is normal. No Q waves. T waves are Normal. No ST changes noted. Clinical impression: 1st degree heart block. Laboratory evaluation elevated troponin 85.5, sodium potassium normal, UA 5-10 hyaline casts, chest x-ray no acute abnormalities. Head CT no acute abnormality CT of the chest abdomen, negative for pulmonary embolism Recent teeth extraction DVT prophylaxis Soft diet As needed analgesics Ensure with meals, Alcohol use Tobacco use History of cocaine use UDS ordered CIWA precautions, as needed Ativan Educated on cessation Full code DVT Lovenox Diet n.p.o. after midnight Discharge Plan: Home Plan to discharge in: 24 Hours - Advance Directives Does patient have a Living Will: No Does patient have a Durable POA for Healthcare: No - Code Status/Comfort Care Code Status: Full Code Physician Review: Patient Assessed, Agree with Above Assessment and Plan Critical Care: No Time Spent Managing Pts Care (In Minutes): 50
[2023-05-09 19:15] LABS: White Blood Cell Scan OK (OK)
[2023-05-09 19:16] LABS: Blood Morphology Comment NOT SEEN (NOT SEEN); Platelet Estimate ADEQ
[2023-05-09] MEDS ORDERED: ASPIRIN 81 MG CHEWABLE TABLET ONE (19:50)
[2023-05-09] MEDS ORDERED: FLUMAZENIL 0.1 MG/ML (5 mL VIAL) IV PRN (19:59)
[2023-05-09] MEDS ORDERED: ONDANSETRON 4 MG/2 ML VIAL IV PRN (19:59)
[2023-05-09] MEDS ORDERED: LORazepam 2 MG/ML VIAL IV PRN (19:59)
[2023-05-09] MEDS ORDERED: ACETAMINOPHEN 500 MG TAB PO PRN (19:59)
[2023-05-09] MEDS ORDERED: CODEINE 30MG/APAP 300MG TAB PO PRN (20:29)
[2023-05-09] MEDS: ENSURE PLANT-BASED PROTEIN VANILLA 330 ML CAN PO SCH (21:00)
[2023-05-09 21:30] VITALS: O2SAT 97
[2023-05-09 22:27] VITALS: BMI 23.8
[2023-05-09] MEDS ORDERED: ALPRAZOLAM 1 MG TABLET PO PRN (22:47)
[2023-05-10] MEDS ORDERED: HYDRALAZINE HCL 20 MG/ML VIAL IV PRN (00:55)
[2023-05-10] MEDS: ENOXAPARIN 80 MG/0.8 ML SQ SCH ×2 (01:47→09:00)
[2023-05-10 03:33] LABS: Absolute Lymphocytes (CBC) 2.1 K/uL (0.7-4.9); Hematocrit 39.5 % (39.6-49.0); Lymphocytes % 37.8 % (15.3-44.8); MCV 88.5 fL (80-100); MPV 10.2 fL (7.6-11.3); Platelets 167 thou/uL (152-406); RBC Red Blood Cell Count 4.46 M/uL (4.33-5.43)
[2023-05-10 03:56] LABS: Magnesium 1.6 mg/dL (1.6-2.4); Potassium 3.9 mEq/L (3.5-5.1)
[2023-05-10] MEDS ORDERED: MAGNESIUM SULFATE 1 gm IVPB 1 GM/100 ML BAG IV ONE ×2 (06:20→09:00)
[2023-05-10 08:00] LABS: Barbiturates NEGATIVE (NEGATIVE); Benzodiazepines POSITIVE (NEGATIVE); Cocaine NEGATIVE (NEGATIVE); METHAMPHETAM NEGATIVE (NEGATIVE); Methadone NEGATIVE (NEGATIVE); Opiates POSITIVE (NEGATIVE); Phencyclidine NEGATIVE (NEGATIVE); THC Cannibis POSITIVE (NEGATIVE)
[2023-05-10] MEDS ORDERED: FOLIC ACID 1 MG TABLET PO SCH (09:00)
[2023-05-10] MEDS ORDERED: THIAMINE HCL 100 MG TABLET PO SCH (09:00)
[2023-05-10] MEDS: ENSURE PLANT-BASED PROTEIN VANILLA 330 ML CAN PO SCH ×2 (09:00→12:43)
[2023-05-10] MEDS ORDERED: POTASSIUM CL SA 10 MEQ TAB PO ONE (09:00)
[2023-05-10] MEDS ORDERED: MULTIVITAMIN TAB PO SCH (09:00)
[2023-05-10] MEDS ORDERED: ENOXAPARIN 40 MG/0.4 ML SQ SCH (09:00)
[2023-05-10 12:33] VITALS: BP 143/103; TEMP 97.2
--- NOTE | 2023-05-10 14:45 | P.DS ---
Admission Date: 05/09/23 Discharge Date: 05/10/23 Disposition: ROUTINE DISCHARGE Discharge Condition: FAIR Reason for Admission: syncope - Problems (1) Near syncope Current Visit: Yes Status: Acute (2) Elevated troponin Current Visit: Yes Status: Acute (3) Chest pain Current Visit: Yes Status: Acute (4) HTN (hypertension) Current Visit: No Status: Chronic Qualifiers: Hypertension type: primary hypertension Qualified Code(s): I10 - Essential (primary) hypertension Brief History of Present Illness: 57-year-old male with a past medical history of hypertension, coronary artery disease presents to the emergency room for syncope. He denies any current symptoms. He reported feeling lightheaded, nearly passed out, he denied hitting head, denied loss of consciousness. He reported having 4 recent teeth extraction, poor p.o. intake due to pain with eating. He reported he was put on additional blood pressure medication by his primary care physician. He denied any chest pain, abdominal pain, fever chills. He reported frequent alcohol use. BP 99 / 81; Pulse 68; Pulse Ox 98% on R/A; EKG 6 Rate is 68 beats/min. Rhythm is regular, 1st degree heart block. Laboratory evaluation elevated troponin 85.5, sodium potassium normal, UA 5-10 hyaline casts, chest x-ray no acute abnormalit ies. Head CT no acute abnormality CT of the chest abdomen, negative for pulmonary embolism. Patient was hospitalized for further management. Hospital Course: Patient placed in observation on the medical floor. Troponin trended flat. Patient was asymptomatic during the hospital stay. His home medications were reviewed and noted he is supposed to take clonidine as needed for severe hypertension, systolic blood pressure greater than 160 which patient stated he was doing. His blood pressure was borderline low in the ED suggesting orthostatic hypotension as a cause of his near syncopal episode. Patient seen and evaluated by cardiology Dr. Mcpherson who recommend outpatient stress test. Vital Signs/Physical Exam: Temp Pulse Resp BP Pulse Ox 97.2 F 66 14 143/103 H 96 05/10/23 12:00 05/10/23 12:00 05/10/23 12:00 05/10/23 12:00 05/10/23 12:00 General: Alert, In no apparent distress, Oriented x3 HEENT: Mucous membr. moist/pink Neck: Supple, JVD not distended Respiratory: Clear to auscultation bilaterally, Normal air movement Cardiovascular: No edema, Regular rate/rhythm, Normal S1 S2 Gastrointestinal: Soft and benign, Non-distended, No tenderness Musculoskeletal: No swelling Integumentary: No rashes, No cyanosis Neurological: Normal strength at 5/5 x4 extr Laboratory Data at Discharge: WBC 5.50 thou/uL (4.3-10.9) 05/10/23 02:43 Hgb 13.4 g/dL (13.6-17.9) L 05/10/23 02:43 Hct 39.5 % (39.6-49.0) L 05/10/23 02:43 Plt Count 167 thou/uL (152-406) 05/10/23 02:43 PT 12.0 SECONDS (9.5-12.5) 05/09/23 16:41 INR 1.09 05/09/23 16:41 APTT 19.8 SECONDS (24.3-36.9) L 05/09/23 16:41 Sodium 137 mEq/L (136-145) 05/10/23 02:43 Potassium 3.9 mEq/L (3.5-5.1) 05/10/23 02:43 BUN 10 mg/dL (7-18) 05/10/23 02:43 Creatinine 1.00 mg/dL (0.70-1.30) 05/10/23 02:43 Glucose 105 mg/dL (74-106) 05/10/23 02:43 Phosphorus 3.2 mg/dL (2.5-4.9) 05/10/23 02:43 Magnesium 1.6 mg/dL (1.6-2.4) 05/10/23 02:43 Total Bilirubin 0.4 mg/dL (0.2-1.0) 05/09/23 16:41 AST 22 U/L (15-37) 05/09/23 16:41 ALT 21 U/L (16-61) 05/09/23 16:41 Alkaline Phosphatase 73 U/L (45-117) 05/09/23 16:41 Home Medications: Aspirin [Aspirin EC 81 MG] 81 mg PO DAILY #90 tablet. 04/30/21 Atorvastatin Calcium [Lipitor] 40 mg PO BEDTIME #30 tablet 04/30/21 Amlodipine Besylate [Norvasc] 5 mg PO DAILY 05/10/23 Carvedilol [Coreg] 12.5 mg PO BID 05/10/23 Lisinopril [Zestril] 20 mg PO BID 05/10/23 Thiamine HCl [Vitamin B-1*] 100 mg PO DAILY #30 tab 05/10/23 New Medications: Thiamine HCl [Vitamin B-1*] 100 mg PO DAILY #30 tab Diet: AHA Activity: Fall precautions Followup: [place] Mcpherson MD [ACTIVE - CAN ADMIT] - (Within 1 week for arrangement for stress test.) Time spent managing pt's care (in minutes): 25
--- NOTE | 2023-05-12 12:37 | EKG ---
Test Date: 2023-05-09 Test Time: 15:31:44 Director Of Occupational Therapy: ALP MEASUREMENT RESULTS: Intervals: Rate: 68 KS: 226 QRSD: 150 QT: 458 QTc: 487 [place]: P: 56 KS: 226 QRS: -84 T: 56 INTERPRETIVE STATEMENTS: Sinus rhythm with 1st degree AV block Right bundle branch block Left anterior fascicular block Bifascicular block Moderate voltage criteria for LVH, may be normal variant Possible Anterolateral infarct, age undetermined Abnormal ECG Compared to ECG 04/27/2021 19:48:59 First degree AV block now present Sinus tachycardia no longer present Bifascicular block still present Myocardial infarct finding still present Electronically Signed On 05-12-23 12:32:29 CDT by [place]
--- NOTE | 2023-05-12 13:46 | CON ---
Date of Consultation: 05/12/2023 Reason For Consultation: Syncope. History Of Present Illness: A 57-year-old male with history of hypertension, coronary artery disease , dyslipidemia, and hypertension, presented to the emergency room with syncopal episodes. Denies hav ing any palpitations or shortness of breath or chest pain. He was feeling lightheaded, blood pressur e was low, and nearly passed out, but he did not lose his consciousness. Past Medical History: As outlined above in the HPI. Medications: Refer to reconciliation sheet for detailed list. Allergies: NO KNOWN DRUG ALLERGIES. Family History: No premature coronary artery disease or cancer. Social History: Drinks alcohol periodically. Does not smoke or use any drugs. Review of Systems: All systems reviewed and they were negative except what mentioned in HPI. Physical Examination: Vital Signs: Reviewed. Head and Neck: Pupils are equal, reactive to light. Intact eye movements. No JVD. No cervical lym phadenopathy. Neck is supple. Thyroid is not enlarged. Lungs: Clear to auscultation bilaterally. No rhonchi, wheezing, or crackles. No accessory muscle u se. Heart: Regular rate and rhythm. No extra sounds. Abdomen: Soft, nontender. Bowel sounds positive. No organomegaly. No masses or hernia. No rigidi ty or rebound. Extremities: No edema, clubbing, or cyanosis. Intact pulses. Skin: No rash. Neurologic: Alert, awake, oriented x3. No acute focal deficits appreciated. Lymph Nodes: No cervical or axillary lymphadenopathy. Investigations: BUN 10, creatinine is 1. Troponin is 85, then 89, and then 96. Assessment And Recommendations: 1.Near syncopal episode with dizziness, no arrhythmia was noted, probably due to hypotension and ort hostatic hypotension. His blood pressure runs low. No active chest pain. He does have a cardiologi st that he follows up as an outpatient. If the patient can ambulate without any symptoms, he can be released to follow up with his retail sales representative and to obtain 1 week Holter and also he will need a stres s test. 2.Borderline elevated troponin. No chest pain. Recommend stress test to be done as an outpatient a s well as an echo. The patient has a retail sales representative and he will follow up with him next week. 3.Hypertension. Blood pressure is on the low side. Likely, his near passing-out spell was due to t hat. The patient definitely needs further workup, but he sees retail sales representative on a regular basis and he will follow up with him early next week. /TOM Voice ID: [id number] Report ID: [id number]
== END 2023-05-10 14:58 | disposition home or self-care (01) ==
LOC: ER 15:21 → 2ND 19:06
PROVIDERS: ADMIT Internal Medicine; ATTEND Internal Medicine
DX: R55 Syncope and collapse (principal); I95.9 Hypotension, unspecified; R07.9 Chest pain, unspecified; R77.8 Other specified abnormalities of plasma proteins; I10 Essential (primary) hypertension; I25.10 Atherosclerotic heart disease of native coronary artery without angina pectoris; F10.90 Alcohol use, unspecified, uncomplicated; F14.11 Cocaine abuse, in remission; Z98.818 Other dental procedure status; Z82.49 Family history of ischemic heart disease and other diseases of the circulatory system; Z83.6 Family history of other diseases of the respiratory system; Z72.0 Tobacco use
CPT/HCPCS: 96361; 85025 ×2; 81001; 80048 ×2; 36415; 83735 ×2; 84100; 85610; 80076; 85730; 84484 ×4; 80307; 70450; 71275; 71045; 96360; 99285; Q9967; J3475; J0360; J7030; 93005; G0378